=== PATIENT | male | born 1950 | race Caucasian/White ===

== ENCOUNTER 2016-10-10 21:57 | Inpatient (IN) | payer MEDICAID, MEDICARE ==
[~2016-10-10] VITALS: Ht 167.6 cm; Wt 75.0 kg
[~2016-10-10 21:57] MED LIST: FURO1TAB93 PO; FURO20 PO; LISI-357 PO; LISI-589 PO; PRED20 PO; VENTAER INH
[2016-10-10 21:59] VITALS: O2SAT 98
[2016-10-10 22:19] LABS: I-STAT POTASSIUM 3.3 MMOL/L (3.5-4.9)
[2016-10-10] MEDS: SODIUM CHLOR 0.9% 1000 ML INJ 1,000 ML IV SCH (22:20)
[2016-10-10 22:21] LABS: AUTOMATED NEUTROPHIL # 7.1 TH/MM3 (1.8-7.7); BASOPHIL # 0.1 TH/MM3 (0-0.2); BASOPHIL % 0.8 % (0.0-2.0); EOSINOPHIL # 0.4 TH/MM3 (0-0.4); EOSINOPHIL % 3.8 % (0.0-4.0); HEMATOCRIT 40.2 % (39.0-51.0); HEMO FLAGS DIFF FINAL; LYMPH % 22.6 % (9.0-44.0); LYMPHOCYTE # 2.5 TH/MM3 (1.0-4.8); MEAN CELL VOLUME 102.4 FL (80.0-100.0); MEAN CORPUSCULAR HEMOGLOBIN 35.8 PG (27.0-34.0); MONO % 8.9 % (0.0-8.0); NEUT % 63.9 % (16.0-70.0); PLATELET COUNT 227 TH/MM3 (150-450); RED BLOOD COUNT 3.92 MIL/MM3 (4.50-5.90); RED CELL DISTRIBUTION WIDTH 14.1 % (11.6-17.2); WHITE BLOOD COUNT 11.1 TH/MM3 (4.0-11.0)
--- NOTE | 2016-10-10 22:22 | RADRPT ---
EXAM DATE/TIME: 10/10/2016 21:49 CORRECTION Corrected on: October 10, 2016; [facility] COMPARISON: No previous studies available for comparison. INDICATIONS : Trauma alert. Pain from fall. MEDICAL HISTORY : None. SURGICAL HISTORY : None. ENCOUNTER: Initial ACUITY: 1 day PAIN SCORE: Non-responsive. LOCATION: Bilateral chest FINDINGS: Frontal chest is performed on a backboard. The lungs are symmetrically aerated and grossly clear. No definite hemothorax or pneumothorax. The cardiomediastinal contours are satisfactory for technique an d projection. Visualized skeletal structures appear grossly intact. CONCLUSION: Satisfactory trauma chest appearance. Willian Tavares MD on October 10, 2016 at 22:53 Board Certified Radiologist. This report was verified electronically.
--- NOTE | 2016-10-10 22:22 | RADRPT ---
EXAM DATE/TIME: 10/10/2016 22:08 [facility] COMPARISON: No previous studies available for comparison. INDICATIONS : Trauma; fall. RADIATION DOSE: 59.60 CTDIvol (mGy) MEDICAL HISTORY : Non-responsive. SURGICAL HISTORY : Non-responsive. ENCOUNTER: Initial ACUITY: 1 day PAIN SCALE: Non-responsive LOCATION: cranial TECHNIQUE: Multiple contiguous axial images were obtained of the head. Using automated exposure control and adj ustment of the mA and/or kV according to patient size, radiation dose was kept as low as reasonably a chievable to obtain optimal diagnostic quality images. FINDINGS: Frontotemporal cortex. No evidence of drainable hemorrhagic collection. No evidence of significant ma ss effect or underlying edema. There are patchy areas of diminished white matter attenuation which ar e likely microvascular ischemic in etiology and there are old bilateral basal ganglia lacunar infarct s noted. There is an old fracture involving the left zygomatic arch. There is some fluid in the sphenoid sinus . No evidence of skull fracture. CONCLUSION: Mild left frontotemporal contusion. Willian Tavares MD on October 10, 2016 at 22:17 Board Certified Radiologist. This report was verified electronically.
--- NOTE | 2016-10-10 22:27 | RADRPT ---
EXAM DATE/TIME: 10/10/2016 22:08 [facility] COMPARISON: No previous studies available for comparison. INDICATIONS : Trauma; fall. RADIATION DOSE: 22.69 CTDIvol (mGy) MEDICAL HISTORY : Non-responsive. SURGICAL HISTORY : Non-responsive. ENCOUNTER: Initial ACUITY: 1 day PAIN SCALE: Non-responsive LOCATION: neck TECHNIQUE: Volumetric scanning of the cervical spine was performed. Multiplanar reconstructions in the sagittal, coronal and oblique axial planes were performed. Using automated exposure control and adjustment o f the mA and/or kV according to patient size, radiation dose was kept as low as reasonably achievable to obtain optimal diagnostic quality images. FINDINGS: There is slight retrolisthesis of C5 relative to C6 which appears degenerative. Alignment is otherwis e satisfactory. There is no evidence of fracture. No bony canal stenosis is identified. There is fair ly severe degenerative change with disc space narrowing most significantly at C5-6 and C6-7. Endplate and uncovertebral osteophytes are present at multiple levels. Severe bilateral posterior facet arthr opathy is present. There is no evidence of paraspinal hematoma. CONCLUSION: No acute bony injury in the cervical spine Willian Tavares MD on October 10, 2016 at 22:22 Board Certified Radiologist. This report was verified electronically.
[2016-10-10] MEDS ORDERED: ONDANSETRON HCL 4 MG/2 ML VIAL IV PRN (22:30)
[2016-10-10] MEDS ORDERED: SODIUM CHLORIDE 0.9% FLUSH 5 ML FLUSH IVF PRN (22:30)
[2016-10-10] MEDS ORDERED: NALOXONE HCL 0.4 MG/ML AMP IV PRN (22:30)
[2016-10-10] MEDS ORDERED: Post-op Orders (for Pharmacy) MISC XX ONE (22:30)
--- NOTE | 2016-10-10 22:33 | MH ---
cc: JAK HAMM MD DATE OF ENCOUNTER 10/10/2016 HISTORY OF PRESENT ILLNESS This 64-year-old male was apparently in a bar, fell backward and is brought as a priority 1 trauma alert because of the LOC and on the scene Rebeca coma scale was 10. The patient is obviously inebriated alcohol intoxicated. The patient brought on a spinal board with C-collar in place. PAST MEDICAL/SURGICAL HISTORY Unknown. ALLERGIES Unknown MEDICATIONS Unknown SOCIAL HISTORY The patient is clearly drunk. PHYSICAL EXAMINATION GENERAL: A 64-year-old male appearing older than his age. HEENT: Normocephalic, no trauma to the head. Pupils equally reactive. Extraocular muscles intact. Ears - There is some red blood in the right ear but no CSF leak nothing in the left, no Basilio's sign. NECK: Bilateral carotid pulses. No bruits. C collar is in position. CHEST: Bilateral breath sounds decreased over both lung cruz consistent with moderate degree of COPD. HEART: Regular rhythm. ABDOMEN: Very rotund with active bowel sounds. No rebound or guarding. No masses. I would assume that patient probably has some degree of ascites considering the percutory dullness laterally and hyperresonance superiorly from the bowel loops floating on the surface of the fluid. Groins are normal. EXTREMITIES: Grossly within normal limits, appear to be atrophic, musculature good femoral popliteal, dorsalis pedis posterior pulses. BACK: The patient is log rolled. Back is normal NEUROLOGIC: Right now, Worthington coma scale is now 12. The patient is awake, but I do not believe oriented, opens eyes and responds to stimuli, is appropriate although he is heavily inebriated. IMPRESSION A patient who fell backward, had some decrease of level of consciousness according to the people there and now being worked up, taken to the CT scan for further workup. CT scan reveals small left frontotemporal contusion with bleeding Patient will be admitted to ICU and monitored IV fluids initiated in the emergency room will continue throughout the stay Patient started on Keppra as a seizure preventing standard measure C-collar removed I spoke to neurosurgeon and he will consult on the patient Critical care time 40 minutes. Jak VALDEZ/ /10:11 PM /10:25 PM [facility]ALIA
[2016-10-10 22:35] LABS: APTT (PATIENT) 25.4 SEC (24.3-30.1); PROTHROMBIN TIME - PATIENT 10.6 SEC (9.8-11.6)
--- NOTE | 2016-10-10 22:57 | RADRPT ---
EXAM DATE/TIME: 10/10/2016 21:49 [facility] COMPARISON: No previous studies available for comparison. INDICATIONS : Trauma alert. Pain from fall. MEDICAL HISTORY : None. SURGICAL HISTORY : None. ENCOUNTER: Initial ACUITY: 1 day PAIN SCORE: Non-responsive. LOCATION: Bilateral pelvis FINDINGS: Frontal pelvis is performed with patient on a backboard. The hips are grossly symmetric and normal wi thout evidence of fracture or dislocation. No displaced pelvic fracture is noted. There are dense ath erosclerotic vascular calcifications identified. CONCLUSION: Satisfactory trauma pelvis appearance. Willian Tavares MD on October 10, 2016 at 22:54 Board Certified Radiologist. This report was verified electronically.
[2016-10-10] MEDS: hydrALAZINE HCL 20 MG/ML VIAL IV PUSH SCH (23:00)
[2016-10-10] MEDS ORDERED: METOPROLOL TARTRATE 5 MG/5 ML VIAL IV PUSH SCH (23:00)
--- NOTE | 2016-10-10 23:12 | PD ---
HPI Chief Complaint: Fall Time Seen by Provider: 22:05 Travel History International Travel<30 days: No (unknown) Contact w/Intl Traveler<30days: No (unknown) History of Present Illness HPI Elderly male with unknown PMH brought in as trauma alert s/p fall from standing outside the bar. +LOC. Pt had blood from right ear. Pt is intoxicated in the ED but following commands and hypertensive. GCS 14. No other signs of trauma seen. Moving all extremities. PFSH Past Medical History Medical History: Unable to Obtain Past Surgical History Surgical History: Unable to Obtain Social History Tobacco Use: No (unknown) Allergies-Medications (Allergen,Severity, Reaction): Coded Allergies: UNOBTAINABLE (Unverified , 10/10/16) Review of Systems ROS Limitations: Intoxication Physical Exam Narrative GENERAL: Elderly male intoxicated. SKIN: Warm and dry. HEAD: No hematoma or laceration seen. EYES: Pupils 3mm and reactive bilaterally. ENT: +Blood from right ear. NECK: In cervical spine collar. CARDIOVASCULAR: Regular rate and rhythm. No murmur appreciated. RESPIRATORY: No accessory muscle use. Clear to auscultation. Breath sounds equal bilaterally. GASTROINTESTINAL: Abdomen soft, non-tender, nondistended. No rebound tenderness or guarding. BACK: No midline ttp. MUSCULOSKELETAL: No obvious deformities. No clubbing. No cyanosis. No edema. NEUROLOGICAL: Intoxicated but moving all extremities. Limited neuro exam due to intoxication. Data Data Orders I-Stat Profile (10/10/16 22:05) I-Stat Creatinine (10/10/16 22:05) Complete Blood Count With Diff (10/10/16 22:05) Prothrombin Time / Inr (Pt) (10/10/16 22:05) Act Partial Throm Time (Ptt) (10/10/16 22:05) Type And Screen (10/10/16 22:05) Chest, Single Ap (10/10/16 22:05) Pelvis, Ap Only (Routine) (10/10/16 22:05) Ct Brain W/O Iv Contrast(Rout) (10/10/16 22:05) Ct Cerv Spine W/O Contrast (10/10/16 22:05) Iv Access Insert/Monitor (10/10/16 22:05) Ecg Monitoring (10/10/16 22:05) Oximetry (10/10/16 22:05) Oxygen Administration (10/10/16 22:05) Admit To Inpatient (10/10/16 ) Code Status (10/10/16 22:20) Vital Signs (Adult) Q4H (10/10/16 22:20) Activity Bed Rest (10/10/16 22:20) Intake + Output CARSON.QSHIFT (10/10/16 22:20) Diet Clear Liquid (10/11/16 Breakfast) Sodium Chlor 0.9% 1000 Ml Inj (Ns 1000 M (10/10/16 22:20) Sodium Chloride 0.9% Flush (Ns Flush) (10/10/16 22:30) Sodium Chloride 0.9% Flush (Ns Flush) (10/11/16 09:00) Ondansetron Inj (Zofran Inj) (10/10/16 22:30) Pantoprazole Inj (Protonix Inj) (10/10/16 23:00) Resp Incentive Spirometry (10/10/16 ) Post-Op Orders (For Pharmacy) (Post-Op O (10/10/16 22:30) Acetaminophen (Tylenol) (10/10/16 22:30) Naloxone Inj (Narcan Inj) (10/10/16 22:30) Scd Bilateral/Knee High CARSON.QSHIFT (10/10/16 22:20) Pharmacologic Contraindication (10/10/16 22:20) Inpatient Certification (10/10/16 ) Prednisone (Deltasone) (10/11/16 09:00) Metoprolol Tartrate Inj (Lopressor Inj) (10/10/16 23:00) Lisinopril (Prinivil) (10/11/16 09:00) Albuterol-Ipratropium Neb (Duoneb Neb) (10/11/16 08:00) Consult Neurosurgery (10/10/16 ) Remove Cervical Collar (10/10/16 22:38) Urinary Catheter Insert/Apply (10/10/16 22:39) Admit Order (Ed Use Only) (10/10/16 23:06) Labs Laboratory Tests Test 10/10/16 21:55 White Blood Count 11.1 TH/MM3 Red Blood Count 3.92 MIL/MM3 Hemoglobin 14.0 GM/DL Bedside Hemoglobin 14.6 G/DL Hematocrit 40.2 % Bedside Hematocrit 43.0 % Mean Corpuscular Volume 102.4 FL Mean Corpuscular Hemoglobin 35.8 PG Mean Corpuscular Hemoglobin 35.0 % Concent Red Cell Distribution Width 14.1 % Platelet Count 227 TH/MM3 Mean Platelet Volume 7.7 FL Neutrophils (%) (Auto) 63.9 % Lymphocytes (%) (Auto) 22.6 % Monocytes (%) (Auto) 8.9 % Eosinophils (%) (Auto) 3.8 % Basophils (%) (Auto) 0.8 % Neutrophils # (Auto) 7.1 TH/MM3 Lymphocytes # (Auto) 2.5 TH/MM3 Monocytes # (Auto) 1.0 TH/MM3 Eosinophils # (Auto) 0.4 TH/MM3 Basophils # (Auto) 0.1 TH/MM3 CBC Comment DIFF FINAL Differential Comment Prothrombin Time 10.6 SEC Prothromb Time International 1.0 RATIO Ratio Activated Partial 25.4 SEC Thromboplast Time Bedside Sodium 135 MMOL/L Bedside Potassium 3.3 MMOL/L Bedside Chloride 94 MMOL/L Bedside Blood Urea Nitrogen 4 MG/DL Bedside Creatinine 1.1 MG/DL Bedside Glucose 114 MG/DL Blood Type O NEGATIVE Antibody Screen NEGATIVE B-Type Natriuretic Peptide 155 PG/ML Ethyl Alcohol Level 239 MG/DL MDM Medical Decision Making Medical Screen Exam Complete: Yes Emergency Medical Condition: Yes Differential Diagnosis ICH vs. skull fracture vs. contusion vs. intoxication Narrative Course Elderly male intoxicated with fall and +LOC. CXR and xray pelvis in trauma bay negative. Pt is hypertensive in the trauma bay. CT brain showed mild left frontotemporal contusion. CT cspine showed no acute bony injury. Pt admitted to trauma in ICU for parenchyma contusion and frequent neurochecks. Critical Care Narrative Aggregate critical care time was 20 minutes. Time to perform other separately billable procedures was not included in the critical care time. My time did not include minutes spent treating any other patients simultaneously or on activities that did not directly contribute to the patient's treatment. The services I provided to this patient were to treat and/or prevent clinically significant deterioration that could result in: cardiovascular collapse or . I provided critical care services requiring my management, as noted below: Chart data review, documentation time, medication orders and management, vital sign assessments/reviewing monitor data, ordering and reviewing lab tests, ordering and interpreting/reviewing x-rays and diagnostic studies, care of the patient and discussion of the patient with the admitting physicians. Diagnosis Primary Impression: Head trauma Qualified Code: S09.90XA - Head trauma, initial encounter Admitting Information Admitting Physician Requests: Dipti Baker DO Oct 10, 2016 23:12
[2016-10-10] MEDS ORDERED: RESP: ALBUTEROL 2.5 MG/IPRATROPIUM 0.5 MG NEB (PRN) NEB (23:15)
[2016-10-10] MEDS: PANTOPRAZOLE SODIUM 40 MG VIAL IV SCH (23:47)
--- NOTE | 2016-10-10 23:47 | PD.CONS ---
HPI Service Critical Care Medicine Consult Requested By Trauma Surgery Reason for Consult Hypertensive urgency Primary Care Physician No Primary Care Physician History of Present Illness 65 y/o man apparently fell over backwards in or outside of local bar. LOC at scene. Conversant on arrival from records. Intoxivated with strong smell of alcohol. Review of Systems ROS No chest pain or SOB. Denies COPD or wheezing (but clear has COPD by exam). Denies inhaler use. Past Family Social History Allergies: Coded Allergies: UNOBTAINABLE (Unverified , 10/10/16) Past Medical History Unknown. Physical Exam Vital Signs Vital Signs Date Time Temp Pulse Resp B/P Pulse Ox O2 Delivery O2 Flow Rate FiO2 10/10/16 23:13 97 Nasal Cannula 2.00 Physical Exam Gen: Intoxicated man with mumbled speech. Head: Minor cut right external ear. Neck: Supple. No tenderness to palpation. No step-off. Airway patent with mild snoring. Lungs: Diffuse light wheezes. Good arnie air movement. Heart: NL S1S2 70s. No m,r. No JVD. RRR. Abdomen: Large, soft. Moderately distended. BS present. No guarding. Extremities: Warm, well perfused. Neuro: Speech slurred, mumbles. Conversant. Intoxicated. Moves 4 limbs spontaneously with purpose and to command. Pupils 2 mm, reactive. Laboratory Laboratory Tests Test 10/10/16 21:55 White Blood Count 11.1 Red Blood Count 3.92 Hemoglobin 14.0 Bedside Hemoglobin 14.6 Hematocrit 40.2 Bedside Hematocrit 43.0 Mean Corpuscular Volume 102.4 Mean Corpuscular Hemoglobin 35.8 Mean Corpuscular Hemoglobin 35.0 Concent Red Cell Distribution Width 14.1 Platelet Count 227 Mean Platelet Volume 7.7 Neutrophils (%) (Auto) 63.9 Lymphocytes (%) (Auto) 22.6 Monocytes (%) (Auto) 8.9 Eosinophils (%) (Auto) 3.8 Basophils (%) (Auto) 0.8 Neutrophils # (Auto) 7.1 Lymphocytes # (Auto) 2.5 Monocytes # (Auto) 1.0 Eosinophils # (Auto) 0.4 Basophils # (Auto) 0.1 CBC Comment DIFF FINAL Differential Comment Prothrombin Time 10.6 Prothromb Time International 1.0 Ratio Activated Partial 25.4 Thromboplast Time Bedside Sodium 135 Bedside Potassium 3.3 Bedside Chloride 94 Bedside Blood Urea Nitrogen 4 Bedside Creatinine 1.1 Bedside Glucose 114 Blood Type O NEGATIVE Antibody Screen NEGATIVE Result Diagram: 10/10/162154 Imaging Head CT: Left frontotemporal contusion, 2 cm. CXR: clear. Cardiomegaly. Assessment and Plan Problem List: (1) Closed head injury with brief loss of consciousness ICD Code: S06.9X9A Status: Acute (2) Encephalopathy, toxic ICD Code: G92 Status: Acute (3) Cerebral cortex contusion ICD Code: S06.2X9A Status: Acute (4) Hypertensive urgency ICD Code: I16.0 Status: Acute Assessment and Plan Plan: CV: Hydralazine, labetalol iv for BP control. EKG due to strain pattern, inverted Ts. RESP: Bronchodilators. BNP to sort out bronchospasm from heart failure. NEURO: Hold sedation. Ativan for withdrawals if otherwise intact. CT head otherwise. ETOH level to document cause of slurred speech. Mag 2 gms. Checl Phos if seizures develop. Repeat Head CT after 12-24 hours. GI: NPO. : Follow Urine output, maintain > 30/hr. ID: Culture for fevers. HEME: CBC for fevers. ENDO: Serial glucose. SSI prn. PX: Hold chemical DVT. SCDs. Protonix. Overall impression: Closed head injury with parenchymal contusion. Alcohol intoxication presumed. At risk for seizures from two causes - follow closely, treat early if tremulous. No neurosurgical intervention required tonight; may see electively in a.m. Will receive education regarding the medical risks of alcohol. Code Status Full Discussed Condition With Dr. Hernandez at bedside. Problem Qualifiers (1) Cerebral cortex contusion: Donovan Davis MD Oct 10, 2016 23:47
[2016-10-10] MEDS: MAGNESIUM SULFATE 1 GM PREMIX 100 ML IV SCH (23:48)
[2016-10-11] VITALS (14 sets, daily range): BP systolic 137–170; BP diastolic 74–91; PULSE 80–117; RESP 22–30; TEMP 97.7–100; O2SAT 93–100
[2016-10-11] MEDS: MAGNESIUM SULFATE 1 GM PREMIX 100 ML IV SCH (01:03)
[2016-10-11] MEDS: LORazepam 2 MG/ML VIAL IV PUSH PRN ×4 (01:09→21:00)
[2016-10-11] MEDS ORDERED: MAGNESIUM OXIDE 400 MG TAB PO PRN (01:15)
[2016-10-11] MEDS ORDERED: POTASSIUM PHOSPHATE INJ 30 MMOL in SODIUM CHLOR 0.9% 250 ML INJ 250 ML IV PRN (01:15)
[2016-10-11] MEDS ORDERED: POTASSIUM CHLOR 20 MEQ PREMIX 100 ML IV PRN (01:15)
[2016-10-11] MEDS ORDERED: MAGNESIUM SULFATE INJ 2 GM in SODIUM CHLORIDE 0.9% INJ 96 ML IV PRN (01:15)
[2016-10-11] MEDS ORDERED: POTASSIUM CHLOR 40 MEQ PREMIX 100 ML IV PRN ×2 (01:15)
[2016-10-11] MEDS ORDERED: MAGNESIUM SULFATE INJ 4 GM in SODIUM CHLORIDE 0.9% INJ 92 ML IV PRN (01:15)
[2016-10-11] MEDS ORDERED: POTASSIUM PHOSPHATE MONOBASIC 500 MG TAB PO PRN (01:15)
[2016-10-11] MEDS ORDERED: POTASSIUM CL 40 MEQ/30 ML LIQ UDC PO/TUBE PRN (01:15)
[2016-10-11] MEDS ORDERED: POTASSIUM PHOSPHATE MONOBASIC 500 MG TAB PO/TUBE PRN (01:15)
[2016-10-11] MEDS: POTASSIUM CHLOR 20 MEQ PREMIX 100 ML IV PRN ×2 (02:15→04:39)
[2016-10-11] MEDS: LABETALOL HCL 100 MG/20 ML VIAL IV PUSH PRN ×2 (02:34→11:43)
[2016-10-11] MEDS: hydrALAZINE HCL 20 MG/ML VIAL IV PUSH SCH ×4 (04:39→21:50)
[2016-10-11] MEDS: SODIUM CHLOR 0.9% 1000 ML INJ 1,000 ML IV SCH ×2 (08:20→22:00)
[2016-10-11] MEDS: RESP: ALBUTEROL 2.5 MG/IPRATROPIUM 0.5 MG NEB (SCH) NEB ×3 (08:35→20:00)
[2016-10-11] MEDS: levETIRAcetam 500 MG TAB PO SCH ×2 (09:04→20:51)
[2016-10-11] MEDS: LISINOPRIL 20 MG TAB PO SCH ×2 (09:04→20:52)
[2016-10-11] MEDS: predniSONE 10 MG TAB PO SCH ×2 (09:05→20:52)
[2016-10-11] MEDS: SODIUM CHLORIDE 0.9% FLUSH 5 ML FLUSH IVF SCH ×2 (09:06→20:52)
--- NOTE | 2016-10-11 09:24 | HHI.CCPN ---
Subjective Brief History Patient was brought in as a trauma alert after sustaining a fall outside a bar and hitting his head. + LOC, + EtOH. GCS 10 on arrival. 24 Hour Review/Hospital Course 10/11/2016 No acute events overnight. Patient has remained lethargic. Objective Vital Signs Date Time Temp Pulse Resp B/P Pulse Ox O2 Delivery O2 Flow Rate FiO2 10/11/16 06:00 98 10/11/16 04:00 98.3 22 154/83 98 10/10/16 23:13 Nasal Cannula 2.00 Result Diagram: 10/10/162154 Imaging Last 24 hours Impressions Pelvis X-Ray 10/10/162204 Signed Impressions: Service Date/Time: Monday, October 10, 2016 21:49 - CONCLUSION: Satisfactory trauma pelvis appearance. Willian Tavares MD Head CT 10/10/162204 Signed Impressions: Service Date/Time: Monday, October 10, 2016 22:08 - CONCLUSION: Mild left frontotemporal contusion. Willian Tavares MD Chest X-Ray 10/10/162204 Signed Impressions: Service Date/Time: Monday, October 10, 2016 21:49 - CONCLUSION: Satisfactory trauma chest appearance. 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 SKIN: Warm and dry. HEAD: Normocephalic. ENT: No nasal bleeding or discharge. Mucous membranes pink and moist. NECK: Trachea midline. No JVD. CARDIOVASCULAR: Regular rate and rhythm. RESPIRATORY: No accessory muscle use. Lungs clear to auscultation. Breath sounds equal bilaterally. GASTROINTESTINAL: Abdomen soft, non-tender, nondistended. + BS. MUSCULOSKELETAL: Extremities without cyanosis, or edema. No obvious deformities. NEUROLOGICAL: Lethargic, arouses to noxious stimuli. Garbled speech. Assessment and Plan Plan ALATNA: Patient had a fall standing outside of a bar. +LOC. + ETOH, GCS 14 on arrival ASSESSMENT AND PLAN: NEUROLOGICAL: EtOH level 239 on admission. Monitor for EtOH withdrawal. Ativan when necessary. Neuro checks q 2 hours. Monitor for seizures. Placed on prophylactic Keppra. HOB elevated 30 degrees Neurosurgery consulted. CARDIOVASCULAR: HR = 80's-110. BP hypertensive. PO Lisinopril. Labetalol IV, Hydralazine IV ordered PRN. IVF: NS @ 100mL/H. MVI bag. Continually monitor for hemodynamic instability (shock and hypotension) Follow [facility] Electrolyte protocol RESPIRATORY: O2 Sats Monitor for hypoxemia Pulmonary toilet L&S as needed. Bronchodilators - Duonebs. GASTROINTESTINAL: Diet clear liquids when more alert. Bowel regimen Colace, MOM. No BM yet. RENAL / URINARY: I&O -359 BUN / creat 5/0.82 Voids to urinal. ENDOCRINE: BGM WNL HEMATOLOGY: H&H 13.4/38.3 PLT 220 Continue to monitor for signs and symptoms of bleeding Transfuse for < 7.0 INFECTIOUS DISEASE: Follow CBC WBC - 17.4 Afebrile Administer antipyretics for temp as needed. Maintain vigorous aseptic care of IVs to avoid blood stream infection. Lines: PIV's. PROPHYLAXIS: GI Protonix IV. DVT - SCD's. SKIN: Warm / Dry ACTIVITY: Status - BR PT and OT evaluating. CASE MANAGEMENT: Consulted for assist with DC planning. Placement - disposition. Discussed with RN at bedside. Pt remains critically ill in the ICU. Trauma surgery will round and evaluate patient and treatment plan on a daily basis. Zaire Jessica Oct 11, 2016 09:24
--- NOTE | 2016-10-11 09:56 | EKG ---
Date Performed: 10/11/2016 Time Performed: 00:08:40 PTAGE: 65 years EKG: Sinus rhythm . Normal ECG NO PREVIOUS TRACING DOCTOR: Jam Snow Interpretating Date/Time 10/11/2016 09:53:59
--- NOTE | 2016-10-11 10:03 | PD.CONS ---
History of Present Illness Service Neurosurgery Consult Requested By Trauma Service Reason for Consult TBI Primary Care Physician No Primary Care Physician Diagnoses: (1) Head trauma History of Present Illness 65-year-old male presented to the emergency room as a trauma alert after falling at a bar with positive loss of consciousness. No seizure activity reported. GCS 10 on initial evaluation. EtOH 239 in the emergency room. Initial CT scan with left frontal hemorrhage Review of Systems Other Unable to obtain review of systems from patient. Past Family Social History Allergies: Coded Allergies: UNOBTAINABLE (Unverified , 10/10/16) Past Medical History Unable to obtain past medical history from patient. Hypertensive on admission Past Surgical History Unable to obtain Reported Medications Unable to obtain Family History Unable to obtain Social History Unable to obtain due to decreased mental status. Physical Exam Vital Signs Vital Signs Date Time Temp Pulse Resp B/P Pulse Ox O2 Delivery O2 Flow Rate FiO2 10/11/16 06:00 98 10/11/16 04:00 98.3 80 22 154/83 98 10/11/16 04:00 80 10/11/16 02:00 94 10/11/16 00:00 97.7 93 23 146/77 100 10/11/16 00:00 86 10/10/16 23:13 97 Nasal Cannula 2.00 10/10/16 21:59 98 4.00 Physical Exam GENERAL: Rather disheveled male, poor hygiene. SKIN: No rashes, ecchymoses or lesions. Cool and dry. HEAD: Atraumatic. Normocephalic. EYES: Sclerae are clear and nonicteric. No periorbital edema or ecchymosis ENT: Laceration right ear. Blood right external auditory canal. No CSF otorrhea or rhinorrhea. NECK: Trachea midline. No JVD or lymphadenopathy. Supple, nontender, no meningeal signs. CARDIOVASCULAR: Regular rate and rhythm without murmurs, gallops, or rubs. RESPIRATORY: Clear to auscultation. Breath sounds equal bilaterally. No wheezes , rales, or rhonchi. GASTROINTESTINAL: Abdomen soft, non-tender, nondistended. No hepato-splenomegaly , or palpable masses. No guarding. MUSCULOSKELETAL: No long bone or joint deformity. No significant extremity edema. Posterior tibial 2+ bilateral NEUROLOGICAL: Very lethargic to obtunded. With repetitive voice and sternal rub, moderate eye -opening but does not focus for follow with eyes. Pupils are 2-3 mm nonreactive During the examination, patient has witnessed seizure with eyes rolling into a superior gaze and primarily left eyelid and myofascial twitching. Initially during exam, he attempts to verbalize in response to questions with significant dysarthria, unintelligible speech. Initially mild grasp left hand to command. Moves all extremities with moderate strength spontaneous Theron is absent bilateral No ankle clonus Laboratory Laboratory Tests Test 10/10/16 21:55 White Blood Count 11.1 Red Blood Count 3.92 Hemoglobin 14.0 Bedside Hemoglobin 14.6 Hematocrit 40.2 Bedside Hematocrit 43.0 Mean Corpuscular Volume 102.4 Mean Corpuscular Hemoglobin 35.8 Mean Corpuscular Hemoglobin 35.0 Concent Red Cell Distribution Width 14.1 Platelet Count 227 Mean Platelet Volume 7.7 Neutrophils (%) (Auto) 63.9 Lymphocytes (%) (Auto) 22.6 Monocytes (%) (Auto) 8.9 Eosinophils (%) (Auto) 3.8 Basophils (%) (Auto) 0.8 Neutrophils # (Auto) 7.1 Lymphocytes # (Auto) 2.5 Monocytes # (Auto) 1.0 Eosinophils # (Auto) 0.4 Basophils # (Auto) 0.1 CBC Comment DIFF FINAL Differential Comment Prothrombin Time 10.6 Prothromb Time International 1.0 Ratio Activated Partial 25.4 Thromboplast Time Bedside Sodium 135 Bedside Potassium 3.3 Bedside Chloride 94 Bedside Blood Urea Nitrogen 4 Bedside Creatinine 1.1 Bedside Glucose 114 Blood Type O NEGATIVE Antibody Screen NEGATIVE B-Type Natriuretic Peptide 155 Ethyl Alcohol Level 239 Result Diagram: 10/10/162154 Imaging CT Head and C-spine images reviewed. Agree with findings as noted below: Pelvis X-Ray 10/10/162204 Signed Impressions: Service Date/Time: Monday, October 10, 2016 21:49 - CONCLUSION: Satisfactory trauma pelvis appearance. Willian Tavares MD Head CT 10/10/162204 Signed Impressions: Service Date/Time: Monday, October 10, 2016 22:08 - CONCLUSION: Mild left frontotemporal contusion. Willian Tavares MD Chest X-Ray 10/10/162204 Signed Impressions: Service Date/Time: Monday, October 10, 2016 21:49 - CONCLUSION: Satisfactory trauma chest appearance. 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 neuro checks F/U CT head 10/12/16 Dilantin load - level in AM. Continue Keppra Ulcer prophylaxis Non- chemical DVT prophylaxis Problem Qualifiers (1) Head trauma: Qualified Code: S09.90XA - Head trauma, initial encounter Sourav Jerry MD Oct 11, 2016 10:03
[2016-10-11 10:19] LABS: AUTOMATED NEUTROPHIL # 15.4 TH/MM3 (1.8-7.7); BASOPHIL # 0.1 TH/MM3 (0-0.2); BASOPHIL % 0.3 % (0.0-2.0); EOSINOPHIL % 0.1 % (0.0-4.0); HEMATOCRIT 38.3 % (39.0-51.0); HEMO FLAGS DIFF FINAL; LYMPHOCYTE # 0.9 TH/MM3 (1.0-4.8); MEAN CELL VOLUME 102.4 FL (80.0-100.0); MEAN CORPUSCULAR HEMOGLOBIN 35.8 PG (27.0-34.0); MONO % 6.1 % (0.0-8.0); NEUT % 88.5 % (16.0-70.0); PLATELET COUNT 220 TH/MM3 (150-450); RED BLOOD COUNT 3.74 MIL/MM3 (4.50-5.90); RED CELL DISTRIBUTION WIDTH 14.4 % (11.6-17.2); WHITE BLOOD COUNT 17.4 TH/MM3 (4.0-11.0)
[2016-10-11 10:28] LABS: ANION GAP 11 MEQ/L (5-15); AST (GOT) 19 U/L (15-37); BICARBONATE 24.7 MEQ/L (21.0-32.0); BLOOD UREA NITROGEN 5 MG/DL (7-18); CHLORIDE 96 MEQ/L (98-107); GLOMERULAR FILTRATION RATE 94 ML/MIN (>89); MAGNESIUM 1.7 MG/DL (1.5-2.5); POTASSIUM 3.5 MEQ/L (3.5-5.1); SODIUM (NA) 132 MEQ/L (136-145)
[2016-10-11 10:31] LABS: ALKALINE PHOSPHATASE 124 U/L (45-117); ALT (GPT) 16 U/L (12-78); TOTAL BILIRUBIN ADULT 0.5 MG/DL (0.2-1.0)
[2016-10-11] MEDS ORDERED: FOSPHENYTOIN SODIUM 500 MG PE/10 ML VIAL IM ONE (12:00)
[2016-10-11] MEDS ORDERED: FOSPHENYTOIN INJ 1,000 MGPE in SODIUM CHLORIDE 0.9% INJ 50 ML IV ONE (14:00)
[2016-10-11] MEDS ORDERED: MULTIVITAMIN INJ 10 ML, THIAMINE INJ 100 MG, FOLIC ACID INJ 1 MG in DEXT 5%-NACL 0.9% 5... IV ONE (14:00)
[2016-10-11] MEDS: PHENYTOIN INJ 100 MG/2 ML VIAL IV SCH (20:52)
[2016-10-11] MEDS ORDERED: MIDAZOLAM HCL 5 MG/ML VIAL (1 ML) ONE (21:03)
--- NOTE | 2016-10-11 21:31 | PD.PROCEDR ---
Procedure Note Procedure DX: Respiratory Failure (J96.01) OP: Orotracheal Intubation (66004) Procedure: Bag mask ventilation. Versed 10 mg and rocuronium 100 mg iv. Intubated orally with 8.0 tube. Position confirmed with CO2 detection, breath sounds, sats 100%. CXR ordered, will review. Donovan Davis MD Oct 11, 2016 21:31
--- NOTE | 2016-10-11 21:43 | HHI.CCPN ---
Subjective Remarks/Hospital Course 65 y/o man apparently fell over backwards in or outside of local bar. LOC at scene. Conversant on arrival from records. Intoxicated with strong smell of alcohol. 10/11: He has developed hypoxemic respiratory failure with inability to clear secretions from productive cough. Respiratory rate 45 and markedly labored. Will require intubation and mechanical ventilation. Objective Vital Signs Date Time Temp Pulse Resp B/P Pulse Ox O2 Delivery O2 Flow Rate FiO2 10/11/16 18:00 117 10/11/16 16:00 100.0 29 137/91 95 10/11/16 13:19 Nasal Cannula 2.00 Result Diagram: 10/11/16 0920 10/11/[address]: Left frontotemporal contusion, 2 cm. CXR: clear. Cardiomegaly. Objective Remarks Gen: Agitated, flushed. Head: Minor cut right external ear. Dry, clean. Neck: Supple. Obstructive breath sounds and large amount of pulmonary secretions. Lungs: Diffuse rhonchi and wheezes. Labored. Heart: NL S1S2 70s. No m,r. No JVD. RRR. Tachycardia. Abdomen: Large, soft. Moderately distended. BS present. No guarding. Extremities: Warm, well perfused. Flushed. Neuro: Garbled speech without change from admission. Moves 4 limbs spontaneously and aggressively. Severely agitated. EFREN. A/P Problem List: (1) Closed head injury with brief loss of consciousness ICD Code: S06.9X9A Status: Acute (2) Encephalopathy, toxic ICD Code: G92 Status: Acute (3) Cerebral cortex contusion ICD Code: S06.2X9A Status: Acute (4) Hypertensive urgency ICD Code: I16.0 Status: Acute Assessment and Plan Plan: CV: Hydralazine, labetalol iv for BP control. EKG due to strain pattern, inverted Ts RESP: Bronchodilators. BNP to sort out bronchospasm from heart failure. NEURO: Ativan for withdrawals, convert to propofol. CT head otherwise. ETOH level 239 - [address] Jerry following. GI: NPO. NG to LIS. : Follow Urine output, maintain > 30/hr. ID: Culture for fevers. Sputum C&S. HEME: CBC for fevers. ENDO: Serial glucose. SSI prn. PX: Hold chemical DVT due to head injury. SCDs. Protonix. Overall impression: Closed head injury with parenchymal contusion. Alcohol intoxication. At risk for seizures from two causes. Deteriorating status tonight requiring mechanical ventilation and withdrawal control. Critical care 45 mins aside from procedures. Problem Qualifiers (1) Cerebral cortex contusion: Donovan Davis MD Oct 11, 2016 21:43
[2016-10-11] MEDS: PROPOFOL 1000 MG/100 ML INJ 100 ML IV SCH (21:49)
[2016-10-11] MEDS: PANTOPRAZOLE SODIUM 40 MG VIAL IV SCH (21:49)
[2016-10-11] MEDS: THIAMINE INJ 100 MG in SODIUM CHLORIDE 0.9% INJ 100 ML IV SCH (22:08)
--- NOTE | 2016-10-11 22:30 | RADRPT ---
EXAM DATE/TIME: 10/11/2016 21:38 [facility] COMPARISON: CHEST SINGLE AP, October 10, 2016, 21:49. INDICATIONS : ET tube placement. MEDICAL HISTORY : None. SURGICAL HISTORY : None. ENCOUNTER: Subsequent ACUITY: 2 days PAIN SCORE: Non-responsive. LOCATION: Bilateral chest FINDINGS: An endotracheal tube has its tip 2 cm above the miguel a. A nasogastric tube has its tip below the garrett phragm. Bilateral perihilar and bibasilar streakiness is noted consistent with atelectasis and/or in filtrates. Clinical correlation is recommended. The heart is stable. CONCLUSION: 1. Endotracheal tube has its tip in good position 2 cm above the miguel a. 2. Nasogastric tube has its tip below the diaphragm. 3. Perihilar and bibasilar streakiness consistent with atelectasis and/or infiltrates. Darrick Diamond MD on October 11, 2016 at 22:24 Board Certified Radiologist. This report was verified electronically.
[2016-10-11 23:19] LABS: MAGNESIUM 1.7 MG/DL (1.5-2.5)
[2016-10-12] VITALS (18 sets, daily range): BP systolic 97–196; BP diastolic 59–94; PULSE 74–96; RESP 14–27; TEMP 98.4–98.9; O2SAT 96–100
[2016-10-12] MEDS: LABETALOL HCL 100 MG/20 ML VIAL IV PUSH PRN (00:03)
[2016-10-12] MEDS: PROPOFOL 1000 MG/100 ML INJ 100 ML IV SCH ×3 (01:13→16:25)
[2016-10-12] MEDS: SODIUM CHLOR 0.9% 1000 ML INJ 1,000 ML IV SCH ×2 (03:49→14:05)
[2016-10-12 04:09] LABS: BLOOD GAS BASE EXCESS -1.7 mmol/L (-2-2); BLOOD GAS CARBOXYHEMOGLOBIN 1.1 % (0-4); BLOOD GAS HCO3 22 mmol/L (22-26); BLOOD GAS METHEMOGLOBIN 0.8 % (0-2); BLOOD GAS O2 HGB SATURATION 98 % (90-100); BLOOD GAS PCO2 33 mmHg (38-42); BLOOD GAS PO2 172 mmHg (61-120); BLOOD GAS TOTAL HGB 11.4 G/DL (12.0-16.0); CRITICAL VALUE NO
[2016-10-12 04:10] LABS: DRAW SITE RT BRACHIAL; FIO2 50 %; NUMBER OF ARTERIAL PUNCTURES 2; OXYGEN DEVICE VENTILATOR; TEMP CORR TO 98.6; VENT SETTINGS PRVC/AC
[2016-10-12 04:11] LABS: STAT NO
[2016-10-12] MEDS: hydrALAZINE HCL 20 MG/ML VIAL IV PUSH SCH ×4 (04:25→23:00)
[2016-10-12] MEDS ORDERED: ATROPINE SULFATE 1 MG/10 ML SYRINGE ONE (04:46)
[2016-10-12] MEDS ORDERED: EPINEPHrine HCL (1:10,000) 1 MG/10 ML SYRINGE ONE (04:46)
[2016-10-12] MEDS ORDERED: LIDOCAINE HCL 2% 100 MG/5 ML SYRINGE ONE (04:50)
[2016-10-12 05:19] LABS: AUTOMATED NEUTROPHIL # 12.3 TH/MM3 (1.8-7.7); BASOPHIL % 0.3 % (0.0-2.0); HEMATOCRIT 33.3 % (39.0-51.0); HEMO FLAGS DIFF FINAL; LYMPH % 4.5 % (9.0-44.0); LYMPHOCYTE # 0.6 TH/MM3 (1.0-4.8); MEAN CELL VOLUME 103.5 FL (80.0-100.0); MEAN CORPUSCULAR HEMOGLOBIN 35.8 PG (27.0-34.0); MEAN CORPUSCULAR HGB CONC 34.5 % (32.0-36.0); MONO % 7.9 % (0.0-8.0); NEUT % 87.3 % (16.0-70.0); PLATELET COUNT 190 TH/MM3 (150-450); RED BLOOD COUNT 3.22 MIL/MM3 (4.50-5.90); RED CELL DISTRIBUTION WIDTH 14.5 % (11.6-17.2); WHITE BLOOD COUNT 14.1 TH/MM3 (4.0-11.0)
[2016-10-12 05:42] LABS: BICARBONATE 21.5 MEQ/L (21.0-32.0); POTASSIUM 3.6 MEQ/L (3.5-5.1)
[2016-10-12] MEDS: PHENYTOIN INJ 100 MG/2 ML VIAL IV SCH ×3 (05:47→20:10)
[2016-10-12 06:00] LABS: CALCIUM-PROTEIN CORRECTED 8.1 MG/DL (8.5-10.1)
--- NOTE | 2016-10-12 06:59 | RADRPT ---
EXAM DATE/TIME: 10/12/2016 05:17 [facility] COMPARISON: CT BRAIN W/O CONTRAST, October 10, 2016, 22:08. INDICATIONS : Follow up bleed. RADIATION DOSE: 52.13 CTDIvol (mGy) MEDICAL HISTORY : None SURGICAL HISTORY : None. ENCOUNTER: Subsequent ACUITY: 2 days PAIN SCALE: Non-responsive LOCATION: cranial TECHNIQUE: Multiple contiguous axial images were obtained of the head. Using automated exposure control and adj ustment of the mA and/or kV according to patient size, radiation dose was kept as low as reasonably a chievable to obtain optimal diagnostic quality images. FINDINGS: CEREBRUM: The ventricles are normal for age with diffuse atrophic change. Low density small subdural hygromas a re now noted along both frontal and parietal convexities. The high density hemorrhage in the right fr ontal and parietal lobe is slightly more prominent along the convexities appears to represents subara chnoid hemorrhage with a an area of focal parenchymal contusion which is mildly more prominent on axi al image #18. No evidence of midline shift, mass lesion, or acute infarction. No extra-axial fluid co llections are seen. Old lacunar infarcts are present in the right basal ganglia. POSTERIOR FOSSA: The cerebellum and brainstem are intact. The 4th ventricle is midline. The cerebellopontine angle i s unremarkable. EXTRACRANIAL: The visualized portion of the orbits is intact. SKULL: The calvaria is intact. No evidence of skull fracture. CONCLUSION: 1. Mild interval increase in the left subarachnoid hemorrhage and focal small area of parenchymal con tusion. 2. Small low density subdural hygromas are now noted over the frontal and parietal convexities. Lucio Tyler MD on October 12, 2016 at 6:54 Board Certified Radiologist. This report was verified electronically.
[2016-10-12] MEDS: RESP: ALBUTEROL 2.5 MG/IPRATROPIUM 0.5 MG NEB (SCH) NEB ×3 (08:00→20:37)
[2016-10-12] MEDS: CHLORHEXIDINE 0.12% (ORAL KIT) 15 ML CUP MT SCH ×2 (08:00→20:11)
[2016-10-12] MEDS ORDERED: MAGNESIUM HYDROXIDE SUSP 30 ML CUP PO PRN (08:45)
[2016-10-12] MEDS: predniSONE 10 MG TAB PO SCH ×2 (09:00→20:09)
[2016-10-12] MEDS: LISINOPRIL 20 MG TAB PO SCH ×2 (09:00→20:09)
[2016-10-12] MEDS: SODIUM CHLORIDE 0.9% FLUSH 5 ML FLUSH IVF SCH ×2 (09:00→20:11)
[2016-10-12] MEDS: levETIRAcetam 500 MG TAB PO SCH (09:00)
[2016-10-12] MEDS: THIAMINE INJ 100 MG in SODIUM CHLORIDE 0.9% INJ 100 ML IV SCH (09:14)
[2016-10-12] MEDS: DOCUSATE SODIUM 100 MG/10 ML UDC PO SCH ×2 (09:14→20:11)
[2016-10-12] MEDS: SODIUM PHOSPHATE INJ 30 MMOL in SODIUM CHLOR 0.9% 250 ML INJ 240 ML IV PRN (09:15)
[2016-10-12] MEDS: levETIRAcetam INJ 500 MG in SODIUM CHLORIDE 0.9% INJ 100 ML IV SCH ×2 (10:33→20:11)
--- NOTE | 2016-10-12 11:22 | HHI.CCPN ---
Subjective Brief History This 64-year-old male was apparently in a bar, fell backward from the standing or sitting position and is brought as a priority 1 trauma alert because of the LOC and on the scene Rebeca coma scale was 10. The patient is obviously inebriated alcohol intoxicated and initial alcohol level was 237. The patient brought on a spinal board with C-collar in place. Patient underwent CT scan of the head which revealed left fronto parietal areas of hemorrhage and chronic encephalomalacia Patient was initially placed in the ICU for observation then developed seizures The CT of the brain has worsened and patient's inability to clear secretions length to hypoxemia and tachypnea requiring intubation 24 Hour Review/Hospital Course 10/11/2016 No acute events overnight. Patient has remained lethargic. 10/12/16 Patient developed seizures and the repeat CAT scan revealed some more prominent the evolving hemorrhage of the left temporoparietal area commensurate with patient's decreased level of consciousness Inability to clear secretions in combination of decreased level of consciousness with seizures necessitates intubation and currently patient is intubated and ventilated Great care by Dr. Davis throughout the night Objective Vital Signs Date Time Temp Pulse Resp B/P Pulse Ox O2 Delivery O2 Flow Rate FiO2 10/12/16 08:53 98 50 10/12/16 04:00 78 10/12/16 04:00 98.9 20 97/59 10/11/16 19:00 Nasal Cannula 10/11/16 13:19 2.00 Intake and Output 10/11/16 10/11/16 10/11/16 07:59 15:59 23:59 Intake Total 641 ml 1007 ml 946 ml Output Total 1000 ml 1450 ml 275 ml Balance -359 ml -443 ml 671 ml Result Diagram: 10/12/16 0447 10/12/16 0447 Other Results Laboratory Tests Test 10/12/16 03:58 Blood Gas Puncture Site RT BRACHIAL Blood Gas Patient Temperature 98.6 Blood Gas HCO3 22 mmol/L (22-26) Blood Gas Base Excess -1.7 mmol/L (-2-2) Blood Gas Oxygen Saturation 98 % (90-100) Arterial Blood pH 7.44 (7.380-7.420) Arterial Blood Partial 33 mmHg (38-42) Pressure CO2 Arterial Blood Partial 172 mmHg Pressure O2 (61-120) Arterial Blood Oxygen Content 16.0 Vol % (12.0-20.0) Arterial Blood 1.1 % (0-4) Carboxyhemoglobin Arterial Blood Methemoglobin 0.8 % (0-2) Blood Gas Hemoglobin 11.4 G/DL (12.0-16.0) Oxygen Delivery Device VENTILATOR Blood Gas Ventilator Setting PRVC/AC Blood Gas Inspired Oxygen 50 % Imaging Last [address] 10/12/16 0600 Signed Impressions: Service Date/Time: Wednesday, October 12, 2016 05:17 - CONCLUSION: 1. Mild interval increase in the left subarachnoid hemorrhage and focal small area of parenchymal contusion. 2. Small low density subdural hygromas are now noted over the frontal and parietal convexities. 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 +LOC. + ETOH, GCS 14 on arrival ASSESSMENT AND PLAN: NEUROLOGICAL: EtOH level 239 on admission. Monitor for EtOH withdrawal. Ativan when necessary. Neuro checks q 2 hours. Monitor for seizures. Placed on prophylactic Keppra. HOB elevated 30 degrees Neurosurgery consulted. CARDIOVASCULAR: HR = 80's-110. BP hypertensive. PO Lisinopril. Labetalol IV, Hydralazine IV ordered PRN. IVF: NS @ 100mL/H. MVI bag. Continually monitor for hemodynamic instability (shock and hypotension) Follow CMP Electrolyte protocol RESPIRATORY: O2 Sats Monitor for hypoxemia Pulmonary toilet L&S as needed. Bronchodilators - Duonebs. GASTROINTESTINAL: Diet clear liquids when more alert. Bowel regimen Colace, MOM. No BM yet. RENAL / URINARY: I&O -359 BUN / creat 5/0.82 Voids to urinal. ENDOCRINE: BGM WNL HEMATOLOGY: H&H 13.4/38.3 PLT 220 Continue to monitor for signs and symptoms of bleeding Transfuse for < 7.0 INFECTIOUS DISEASE: Follow CBC WBC - 17.4 Afebrile Administer antipyretics for temp as needed. Maintain vigorous aseptic care of IVs to avoid blood stream infection. Lines: PIV's. PROPHYLAXIS: GI Protonix IV. DVT - SCD's. SKIN: Warm / Dry ACTIVITY: Status - BR PT and OT evaluating. CASE MANAGEMENT: Consulted for assist with DC planning. Placement - disposition. Discussed with RN at bedside. Pt remains critically ill in the ICU. Trauma surgery will round and evaluate patient and treatment plan on a daily basis. Attestation The exam, history, and the medical decision-making described in the above note were completed with the assistance of the mid-level provider. I reviewed and agree with the findings presented. I attest that I had a [id number] encounter with the patient on the same day, and personally performed and documented my assessment and findings in the medical record. Critical care time 50 minutes. Jak Flores MD Oct 12, 2016 11:22
--- NOTE | 2016-10-12 14:32 | HHI.NSPN ---
History Chief Complaint: not verbalizing well Interval History 67-year-old male admitted 10/10/16 following a fall, inebriated, with CT scan revealing relatively small left frontal parenchymal hemorrhage. 10/11/16 patient required intubation with mechanical ventilation due to decreasing mental status, respiratory difficulty. Positive seizure activity witnessed at [facility]. Exam Results Vital Signs Date Time Temp Pulse Resp B/P Pulse Ox O2 Delivery O2 Flow Rate FiO2 10/12/16 11:42 100 40 10/12/16 10:00 80 10/12/16 08:00 98.4 25 109/61 10/12/16 07:00 Mechanical Ventilator 10/11/16 13:19 2.00 Intake and Output 10/11/16 10/11/16 10/11/16 07:59 15:59 23:59 Intake Total 641 ml 1007 ml 946 ml Output Total 1000 ml 1450 ml 275 ml Balance -359 ml -443 ml 671 ml Physical Examination Intubated and sedated. Minimal I opening to sternal rub. Pupils 2 mm nonreactive. Mild oculocephalic movements Mild grimacing deep pain Flexes upper extremities that pain with mild grasp. Lab, Micro, Other Results 10/12/16 CT scan head images reviewed by the undersigned. Agree with findings as noted below: Head CT 10/12/16 0600 Signed Impressions: Service Date/Time: Wednesday, October 12, 2016 05:17 - CONCLUSION: 1. Mild interval increase in the left subarachnoid hemorrhage and focal small area of parenchymal contusion. 2. Small low density subdural hygromas are now noted over the frontal and parietal convexities. Lucio Tyler MD Laboratory Tests Test 10/11/16 10/12/16 10/12/16 22:46 03:58 04:47 Phosphorus Level 2.1 MG/DL B-Type Natriuretic Peptide 595 PG/ML Arterial Blood pH 7.44 Arterial Blood Partial 33 mmHg Pressure CO2 Arterial Blood Partial 172 mmHg Pressure O2 Blood Gas Hemoglobin 11.4 G/DL White Blood Count 14.1 TH/MM3 Red Blood Count 3.22 MIL/MM3 Hemoglobin 11.5 GM/DL Hematocrit 33.3 % Mean Corpuscular Volume 103.5 FL Mean Corpuscular Hemoglobin 35.8 PG Neutrophils (%) (Auto) 87.3 % Lymphocytes (%) (Auto) 4.5 % Neutrophils # (Auto) 12.3 TH/MM3 Lymphocytes # (Auto) 0.6 TH/MM3 Monocytes # (Auto) 1.1 TH/MM3 Sodium Level 134 MEQ/L Estimat Glomerular Filtration 65 ML/MIN Rate Random Glucose 140 MG/DL Calcium Level 7.4 MG/DL Protein Corrected Calcium 8.1 MG/DL Total Protein 5.9 GM/DL Medical Decision Making Impression and Plan Impression: 1. Traumatic brain injury with mild increase in left primarily frontotemporal contusion and subarachnoid hemorrhage on CT scan of 10/12/16. No significant mass effect. Mild bilateral subdural hygromas. Moderate diffuse atrophy. Plan: Continuing close ISC neuro checks and vital signs. Continue Keppra and Dilantin Observe for further seizure activity Ventilatory support continuing per intensivists. Non-chemical DVT prophylaxis Ulcer prophylaxis Sourav Jerry MD Oct 12, 2016 14:32
--- NOTE | 2016-10-12 19:13 | MG ---
cc: DYLON LINDSEY M.D. Lab No: Date: 10/12/2016 Age: 65 Sex: M Race: REQUESTING PHYSICIAN: NATALIA Jessica. An EEG was obtained on this 65-year-old patient being evaluated for subarachnoid hemorrhage and brain contusion. MEDICATIONS: 1. Dilantin. 2. Propofol. 3. Thiamine. DESCRIPTION OF THE RECORD: The patient is intubated and sedated. Diprivan was turned down from 50 to 25 micrograms four minutes ago into the EEG. The study shows low amplitude beta activity diffusely. There are some alpha rhythms in the higher alpha frequency. The background seems to be poorly reactive. This is probably a representation of the sedation. There are some occasional theta and some delta rhythms of low amplitude in the central and frontal head regions. Photic stimulation showed no significant change. The patient did start showing some muscle artifact towards the end of the photic stimulation probably indicating weaning off Diprivan at that time. INTERPRETATION: This EEG is abnormal with generalized low amplitude rhythms, lack of alpha activity, lack of awake type of background rhythms. A lot of the findings could be explained on the basis of sedation. No epileptiform or ictal discharge present. Followup EEGs might be of benefit according to the clinical course. Dylon Lindsey MD [facility] /5:51 PM /7:10 PM
[2016-10-13] VITALS (17 sets, daily range): BP systolic 120–183; BP diastolic 64–93; PULSE 74–110; RESP 14–26; TEMP 97.7–99.3; O2SAT 96–100
[2016-10-13] MEDS: PANTOPRAZOLE SODIUM 40 MG VIAL IV SCH (00:10)
[2016-10-13] MEDS: PROPOFOL 1000 MG/100 ML INJ 100 ML IV SCH ×5 (00:10→17:58)
[2016-10-13] MEDS: LORazepam 2 MG/ML VIAL IV PUSH PRN ×3 (00:11→20:54)
[2016-10-13] MEDS: hydrALAZINE HCL 20 MG/ML VIAL IV PUSH SCH ×5 (00:11→23:00)
[2016-10-13] MEDS: SODIUM CHLOR 0.9% 1000 ML INJ 1,000 ML IV SCH ×3 (00:12→20:54)
[2016-10-13 03:50] LABS: HEMATOCRIT 30.7 % (39.0-51.0); MEAN CELL VOLUME 103.7 FL (80.0-100.0); MEAN CORPUSCULAR HEMOGLOBIN 36.8 PG (27.0-34.0); MEAN CORPUSCULAR HGB CONC 35.5 % (32.0-36.0); PLATELET COUNT 176 TH/MM3 (150-450); RED BLOOD COUNT 2.96 MIL/MM3 (4.50-5.90); RED CELL DISTRIBUTION WIDTH 14.8 % (11.6-17.2); REVIEW FLAG FINAL; WHITE BLOOD COUNT 14.5 TH/MM3 (4.0-11.0)
[2016-10-13 04:26] LABS: BICARBONATE 18.4 MEQ/L (21.0-32.0); MAGNESIUM 1.7 MG/DL (1.5-2.5); POTASSIUM 3.4 MEQ/L (3.5-5.1)
[2016-10-13 04:43] LABS: CALCIUM-PROTEIN CORRECTED 7.9 MG/DL (8.5-10.1)
[2016-10-13] MEDS: PHENYTOIN INJ 100 MG/2 ML VIAL IV SCH ×3 (05:37→20:55)
[2016-10-13] MEDS: POTASSIUM CL 40 MEQ/30 ML LIQ UDC PO/TUBE PRN (05:38)
[2016-10-13] MEDS: SODIUM PHOSPHATE INJ 30 MMOL in SODIUM CHLOR 0.9% 250 ML INJ 240 ML IV PRN (06:11)
[2016-10-13] MEDS: RESP: ALBUTEROL 2.5 MG/IPRATROPIUM 0.5 MG NEB (SCH) NEB ×3 (07:33→19:37)
[2016-10-13] MEDS: SODIUM CHLORIDE 0.9% FLUSH 5 ML FLUSH IVF SCH ×2 (09:00→20:54)
[2016-10-13] MEDS: LISINOPRIL 20 MG TAB PO SCH ×2 (09:00→20:55)
[2016-10-13] MEDS: DOCUSATE SODIUM 100 MG/10 ML UDC PO SCH ×2 (09:37→20:54)
[2016-10-13] MEDS: predniSONE 10 MG TAB PO SCH ×2 (09:38→20:55)
[2016-10-13] MEDS: levETIRAcetam INJ 500 MG in SODIUM CHLORIDE 0.9% INJ 100 ML IV SCH ×2 (09:39→20:53)
[2016-10-13] MEDS: THIAMINE INJ 100 MG in SODIUM CHLORIDE 0.9% INJ 100 ML IV SCH (09:39)
[2016-10-13] MEDS: CHLORHEXIDINE 0.12% (ORAL KIT) 15 ML CUP MT SCH ×2 (09:40→20:53)
[2016-10-13] MEDS: MULTIVITAMIN INJ 10 ML, THIAMINE INJ 100 MG, FOLIC ACID INJ 1 MG in SODIUM CHLORID 0.9%... IV SCH (11:00)
--- NOTE | 2016-10-13 13:00 | HHI.CCPN ---
Subjective Brief History This 64-year-old male was apparently in a bar, fell backward from the standing or sitting position and is brought as a priority 1 trauma alert because of the LOC and on the scene Rebeca coma scale was 10. The patient is obviously inebriated alcohol intoxicated and initial alcohol level was 237. The patient brought on a spinal board with C-collar in place. Patient underwent CT scan of the head which revealed left fronto parietal areas of hemorrhage and chronic encephalomalacia Patient was initially placed in the ICU for observation then developed seizures The CT of the brain has worsened and patient's inability to clear secretions length to hypoxemia and tachypnea requiring intubation 24 Hour Review/Hospital Course 10/11/2016 No acute events overnight. Patient has remained lethargic. 10/12/16 Patient developed seizures and the repeat CAT scan revealed some more prominent the evolving hemorrhage of the left temporoparietal area commensurate with patient's decreased level of consciousness Inability to clear secretions in combination of decreased level of consciousness with seizures necessitates intubation and currently patient is intubated and ventilated Great care by Dr. 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 Patient with the left the cerebral temporoparietal contusion developed seizures and decreased flow of consciousness with slightly enlarging contusion and had to be intubated night before last No new seizures Patient on minimal amounts of propofol Keppra 500 mg twice a day Dilantin 100 mg 3 times a day We will keep intubated and ventilated total patient starts waking up and is able to keep up her airway Hemodynamic/Cardiac Hemodynamically patient is stable Pulmonary/Respiratory Bilateral good breath sounds and good pulmonary expansion with the adequate ABGs Abdomen/GI Nutrition We'll started on enteral feedings today Patient is alcoholic and is receiving banana bag in addition Assessment and Plan Plan STILLAGUAMISH: Patient had a fall standing outside of a bar. +LOC. + ETOH, GCS 14 on arrival ASSESSMENT AND PLAN: NEUROLOGICAL: EtOH level 239 on admission. Monitor for EtOH withdrawal. Ativan when necessary. Neuro checks q 2 hours. Monitor for seizures. Placed on prophylactic Keppra. HOB elevated 30 degrees Neurosurgery consulted. CARDIOVASCULAR: HR = 80's-110. BP hypertensive. PO Lisinopril. Labetalol IV, Hydralazine IV ordered PRN. IVF: NS @ 100mL/H. MVI bag. Continually monitor for hemodynamic instability (shock and hypotension) Follow [facility] Electrolyte protocol RESPIRATORY: O2 Sats Monitor for hypoxemia Pulmonary toilet L&S as needed. Bronchodilators - Duonebs. GASTROINTESTINAL: Diet clear liquids when more alert. Bowel regimen Colace, MOM. No BM yet. RENAL / URINARY: I&O -359 BUN / creat 5/0.82 Voids to urinal. ENDOCRINE: BGM WNL HEMATOLOGY: H&H 13.4/38.3 PLT 220 Continue to monitor for signs and symptoms of bleeding Transfuse for < 7.0 INFECTIOUS DISEASE: Follow CBC WBC - 17.4 Afebrile Administer antipyretics for temp as needed. Maintain vigorous aseptic care of IVs to avoid blood stream infection. Lines: PIV's. PROPHYLAXIS: GI Protonix IV. DVT - SCD's. SKIN: Warm / Dry ACTIVITY: Status - BR PT and OT evaluating. CASE MANAGEMENT: Consulted for assist with DC planning. Placement - disposition. Discussed with RN at bedside. Pt remains critically ill in the ICU. Trauma surgery will round and evaluate patient and treatment plan on a daily basis. Attestation The exam, history, and the medical decision-making described in the above note were completed with the assistance of the mid-level provider. I reviewed and agree with the findings presented. I attest that I had a [id number] encounter with the patient on the same day, and personally performed and documented my assessment and findings in the medical record. Critical care time 40 minutes. Jak Flores MD Oct 13, 2016 13:00
[2016-10-13] MEDS: FUROSEMIDE 20 MG TAB PO SCH (13:10)
--- NOTE | 2016-10-13 15:58 | PD.HHIRCNE ---
Disclaimer Patient was given an explanation of the nature and purpose of the evaluation. Patient agreed to proceed with the evaluation and treatment plan. History Reason for Referral Patient is referred for baseline evaluation to assess cognitive, behavioral and emotional aspects of the injury. Additional Psychosocial Hx Smoking Status: Smoker Current Status UNK Additional Commemts Patient sustained a fall at a bar, with an initial alcohol level of 237. Overall Comments Patient's medical, surgical, psychiatric, educational and social histories unknown at the present time. Past Surgical/Medical History Major surgery in last 100 days: Unknown Medication Active Medications Furosemide (Lasix) 20 mg DAILY PO Last administered on 10/13/16at 13:10; Admin Dose 20 MG; Start 10/13/16 at 11:00 Multivitamins/ Thiamine HCl/ Folic Acid/Sodium Chloride (Mvi-12 Inj/ Thiamine Inj/ Folvite Inj/NS 500 ml Inj) 511.2 ml @ 125 mls/hr Q24H IV Last administered on 10/13/16at 11:00; Admin Dose 125 MLS/HR; Start 10/13/16 at 12: 00; Stop 10/15/16 at 16:06 Mental Status Assessment Orientation: unable to asses Self, unable to asses Place, unable to asses Time , unable to asses Situation Observations Patient was unable to undergo mental status examination due to unconscious condition. He is presently intubated Adjustment/Coping Assessment Adjustment/Coping: Not Assessed: Depression, Anxiety, Pain, Apathy, Awareness, Insight LTG Status: Deferred STG Status: Deferred Team Members: Neuropsychologist Effort Assessment Effort: Other Summary/Diagnosis Summary Patient has small left fronto-temporal contusion, without significant mass effect superimposed on moderate diffuse atrophy. Formal mental status assessment unable to be completed due to unconscious state. Impressions Any neurocognitive deficits due to his brain trauma will need to be considered within the context of an underlying longstanding substance-induced major/minor neurocognitive disorder. Initial Rancho Level: I Diagnosis: (1) Cerebral cortex contusion Recommendations Recommendations Recommendations This clinician will continue to follow with you throughout the course of this patients treatment, and I will be available to meet with the patients family/ support system to facilitate their understanding and the ongoing care of their family member. Session Attendance Variance 10min Kareem Luther PhD Oct 13, 2016 15:58
--- NOTE | 2016-10-13 19:26 | HHI.NSPN ---
History Chief Complaint: not verbalizing well Interval History 67-year-old male admitted 10/10/16 following a fall, inebriated, with CT scan revealing relatively small left frontal parenchymal hemorrhage. 10/11/16 patient required intubation with mechanical ventilation due to decreasing mental status, respiratory difficulty. Positive seizure activity witnessed at [facility]. 10/13/16: Remains intubated, sedated. No definite seizure activity reported Exam Results Vital Signs Date Time Temp Pulse Resp B/P Pulse Ox O2 Delivery O2 Flow Rate FiO2 10/13/16 18:00 90 10/13/16 16:00 40 10/13/16 16:00 98.4 18 164/86 100 10/12/16 07:00 Mechanical Ventilator 10/11/16 13:19 2.00 Intake and Output 10/12/16 10/12/16 10/13/16 08:00 16:00 00:00 Intake Total 729 ml 1187 ml 1801 ml Output Total 225 ml 275 ml 350 ml Balance 504 ml 912 ml 1451 ml Physical Examination Intubated and sedated. No eye opening to sternal rub. Pupils 2 mm nonreactive. Mild oculocephalic movements Mild grimacing deep pain Flexes upper extremities to deep pain with mild grasp. Not following commands Lab, Micro, Other Results 10/12/16 EEG report indicates no definite focal seizure activity Laboratory Tests Test 10/13/16 10/13/16 03:25 17:24 White Blood Count 14.5 TH/MM3 Red Blood Count 2.96 MIL/MM3 Hemoglobin 10.9 GM/DL Hematocrit 30.7 % Mean Corpuscular Volume 103.7 FL Mean Corpuscular Hemoglobin 36.8 PG Mean Corpuscular Hemoglobin 35.5 % Concent Red Cell Distribution Width 14.8 % Platelet Count 176 TH/MM3 Mean Platelet Volume 8.3 FL Sodium Level 139 MEQ/L Potassium Level 3.4 MEQ/L Chloride Level 108 MEQ/L Carbon Dioxide Level 18.4 MEQ/L Anion Gap 13 MEQ/L Blood Urea Nitrogen 14 MG/DL Creatinine 0.84 MG/DL Estimat Glomerular Filtration 91 ML/MIN Rate Random Glucose 125 MG/DL Calcium Level 7.0 MG/DL Protein Corrected Calcium 7.9 MG/DL Phosphorus Level 2.3 MG/DL 3.3 MG/DL Magnesium Level 1.7 MG/DL Total Protein 5.4 GM/DL Medical Decision Making Impression and Plan Impression: 1. Traumatic brain injury with mild increase in left primarily frontotemporal contusion and subarachnoid hemorrhage on CT scan of 10/12/16. No significant mass effect. Mild bilateral subdural hygromas. Moderate diffuse atrophy. Plan: Repeat CT scan head will be ordered for 10/15/16, unless significant change in neurologic exam. Continuing close ISC neuro checks and vital signs. Continue Keppra and Dilantin Observe for further seizure activity Ventilatory support continuing per intensivists. Non-chemical DVT prophylaxis Ulcer prophylaxis Sourav Jerry MD Oct 13, 2016 19:26
[2016-10-13] MEDS: LABETALOL HCL 100 MG/20 ML VIAL IV PUSH PRN (20:13)
[2016-10-14] VITALS (19 sets, daily range): BP systolic 120–174; BP diastolic 65–88; PULSE 76–122; RESP 21–30; TEMP 98.6–100.4; O2SAT 93–100
[2016-10-14] MEDS: PANTOPRAZOLE SODIUM 40 MG VIAL IV SCH ×2 (01:58→23:55)
[2016-10-14] MEDS: PROPOFOL 1000 MG/100 ML INJ 100 ML IV SCH ×5 (01:59→22:42)
[2016-10-14 04:23] LABS: HEMATOCRIT 33.5 % (39.0-51.0); MEAN CELL VOLUME 104.7 FL (80.0-100.0); MEAN CORPUSCULAR HEMOGLOBIN 35.4 PG (27.0-34.0); MEAN CORPUSCULAR HGB CONC 33.8 % (32.0-36.0); PLATELET COUNT 185 TH/MM3 (150-450); REVIEW FLAG FINAL; WHITE BLOOD COUNT 12.4 TH/MM3 (4.0-11.0)
--- NOTE | 2016-10-14 04:57 | RADRPT ---
EXAM DATE/TIME: 10/14/2016 04:37 [facility] COMPARISON: CHEST SINGLE AP, October 11, 2016, 21:38. INDICATIONS : Short of breath. MEDICAL HISTORY : None. SURGICAL HISTORY : None. ENCOUNTER: Subsequent ACUITY: 4 - 6 days PAIN SCORE: Non-responsive. LOCATION: Bilateral chest FINDINGS: Left greater than right basilar consolidation not significantly changed. Small left pleural effusion suspected. No pneumothorax. Heart size stable, upper limits of normal. Thoracic aorta is tortuous and atherosclerotic. Endotracheal tube tip is about 3 cm above the miguel a. There is a nasogastric tube again seen, coursin g into the stomach. CONCLUSION: No significant change. Willian Reynaga MD on October 14, 2016 at 4:55 Board Certified Radiologist. This report was verified electronically.
[2016-10-14 05:09] LABS: BLOOD GAS BASE EXCESS -3.5 mmol/L (-2-2); BLOOD GAS CARBOXYHEMOGLOBIN 1.1 % (0-4); BLOOD GAS HCO3 20 mmol/L (22-26); BLOOD GAS METHEMOGLOBIN 0.7 % (0-2); BLOOD GAS O2 HGB SATURATION 96 % (90-100); BLOOD GAS OXYGEN CONTENT 15.3 Vol % (12.0-20.0); BLOOD GAS PCO2 30 mmHg (38-42); BLOOD GAS PO2 104 mmHg (61-120); BLOOD GAS TOTAL HGB 11.2 G/DL (12.0-16.0); CRITICAL VALUE NO; OXYGEN DEVICE VENTILATOR; TEMP CORR TO 98.6
[2016-10-14 05:09] LABS: BICARBONATE 19.3 MEQ/L (21.0-32.0); MAGNESIUM 1.7 MG/DL (1.5-2.5); POTASSIUM 3.3 MEQ/L (3.5-5.1)
[2016-10-14 05:10] LABS: DRAW SITE RT RADIAL; FIO2 40 %; NUMBER OF ARTERIAL PUNCTURES 1; STAT NO; ULNAR PULSE PRESENT
[2016-10-14 05:21] LABS: CALCIUM-PROTEIN CORRECTED 8.2 MG/DL (8.5-10.1)
[2016-10-14] MEDS: PHENYTOIN INJ 100 MG/2 ML VIAL IV SCH ×3 (06:10→22:44)
[2016-10-14] MEDS: hydrALAZINE HCL 20 MG/ML VIAL IV PUSH SCH ×4 (06:10→22:43)
[2016-10-14] MEDS: POTASSIUM CL 40 MEQ/30 ML LIQ UDC PO/TUBE PRN (06:11)
[2016-10-14] MEDS: SODIUM CHLOR 0.9% 1000 ML INJ 1,000 ML IV SCH ×2 (06:13→15:46)
[2016-10-14] MEDS: RESP: ALBUTEROL 2.5 MG/IPRATROPIUM 0.5 MG NEB (SCH) NEB ×3 (08:12→20:30)
[2016-10-14] MEDS: DOCUSATE SODIUM 100 MG/10 ML UDC PO SCH ×2 (09:00→21:00)
[2016-10-14] MEDS: SODIUM CHLORIDE 0.9% FLUSH 5 ML FLUSH IVF SCH ×2 (09:00→22:45)
[2016-10-14] MEDS: predniSONE 10 MG TAB PO SCH ×2 (09:40→22:44)
[2016-10-14] MEDS: FUROSEMIDE 20 MG TAB PO SCH (09:40)
[2016-10-14] MEDS: LISINOPRIL 20 MG TAB PO SCH ×2 (09:40→22:44)
[2016-10-14] MEDS: levETIRAcetam INJ 500 MG in SODIUM CHLORIDE 0.9% INJ 100 ML IV SCH ×2 (09:41→22:43)
[2016-10-14] MEDS: THIAMINE INJ 100 MG in SODIUM CHLORIDE 0.9% INJ 100 ML IV SCH (09:41)
[2016-10-14] MEDS: CHLORHEXIDINE 0.12% (ORAL KIT) 15 ML CUP MT SCH ×2 (09:42→22:42)
[2016-10-14] MEDS: POTASSIUM CHLORIDE 25 MEQ EFFERVESCENT TAB PO SCH (10:57)
[2016-10-14] MEDS: MULTIVITAMIN INJ 10 ML, THIAMINE INJ 100 MG, FOLIC ACID INJ 1 MG in SODIUM CHLORID 0.9%... IV SCH (10:57)
[2016-10-14] MEDS ORDERED: METOPROLOL TARTRATE 5 MG/5 ML VIAL IV PUSH PRN (11:00)
--- NOTE | 2016-10-14 13:52 | HHI.PR ---
Neuropsych Progress Notes/Response to Tx Time with Patient: 15 minutes Premorbid psychological status Essentially unknown. The patient does appear to have chronic substance dependence issues, given toxicology and neuroimaging results. Maximizing acute care outcome It is recommended that the patient be monitored for emergent behavioral impulsivity as the medical condition evolves. This patients neuropathological challenges may limit their rehabilitation potential going forward, in addition to premorbid psychosocial challenges, and these challenges will require specialized therapeutic skills to maximize outcome. Anticipated Problems Ongoing areas of concern will include behavioral impulsivity, lack of insight and judgment, which may or may not be expected to improve with time and treatment. This patient likely has an underlying major/minor neurocognitive disorder related to his substance dependence. Treatment Plan To be determined based on his ongoing pattern of recovery. Current Rancho Level: I Diagnosis: (1) Cerebral cortex contusion Status: Acute Progress Note Narrative Ongoing daily encounter with patient to monitor course of recovery, and to facilitate outcome. Patient was unresponsive and was unable to follow simple one-step commands. Problem Qualifiers (1) Cerebral cortex contusion: Qualified Code: S06.2X9D - Cerebral cortex contusion, with loss of consciousness of unspecified duration, subsequent encounter Kareem Luther PhD Oct 14, 2016 13:52
--- NOTE | 2016-10-14 14:37 | HHI.CCPN ---
Subjective Brief History This 64-year-old male was apparently in a bar, fell backward from the standing or sitting position and is brought as a priority 1 trauma alert because of the LOC and on the scene Rebeca coma scale was 10. The patient is obviously inebriated alcohol intoxicated and initial alcohol level was 237. The patient brought on a spinal board with C-collar in place. Patient underwent CT scan of the head which revealed left fronto parietal areas of hemorrhage and chronic encephalomalacia Patient was initially placed in the ICU for observation then developed seizures The CT of the brain has worsened and patient's inability to clear secretions length to hypoxemia and tachypnea requiring intubation 24 Hour Review/Hospital Course 10/11/2016 No acute events overnight. Patient has remained lethargic. 10/12/16 Patient developed seizures and the repeat CAT scan revealed some more prominent the evolving hemorrhage of the left temporoparietal area commensurate with patient's decreased level of consciousness Inability to clear secretions in combination of decreased level of consciousness with seizures necessitates intubation and currently patient is intubated and ventilated Great care by Dr. Davis throughout the night 10/13/16 Patient remains on the ventilator No more seizures Pupils equal and reactive EEG was negative for repeated seizures 10/15/16 Patient doing well at this time No more seizures Sedation indication patient moves all 4 extremities however left weaker than the right which is consistent with right frontoparietal hemorrhage and contusion Once neurologic function is sufficiently improved and patient can maintain the airway, he will be weaned to extubate Objective Vital Signs Date Time Temp Pulse Resp B/P Pulse Ox O2 Delivery O2 Flow Rate FiO2 10/14/16 12:00 117 10/14/16 12:00 99.3 21 147/72 95 10/14/16 12:00 40 10/12/16 07:00 Mechanical Ventilator 10/11/16 13:19 2.00 Intake and Output 10/13/16 10/13/16 10/14/16 08:00 16:00 00:00 Intake Total 1113 ml 825 ml 1789 ml Output Total 125 ml 200 ml 750 ml Balance 988 ml 625 ml 1039 ml Result Diagram: 10/14/16 0352 10/14/16 0352 Other Results Laboratory Tests Test 10/14/16 05:00 Blood Gas Puncture Site RT RADIAL Blood Gas Patient Temperature 98.6 Blood Gas HCO3 20 mmol/L (22-26) Blood Gas Base Excess -3.5 mmol/L (-2-2) Blood Gas Oxygen Saturation 96 % (90-100) Arterial Blood pH 7.45 (7.380-7.420) Arterial Blood Partial 30 mmHg (38-42) Pressure CO2 Arterial Blood Partial 104 mmHg Pressure O2 (61-120) Arterial Blood Oxygen Content 15.3 Vol % (12.0-20.0) Arterial Blood 1.1 % (0-4) Carboxyhemoglobin Arterial Blood Methemoglobin 0.7 % (0-2) Blood Gas Hemoglobin 11.2 G/DL (12.0-16.0) Oxygen Delivery Device VENTILATOR Blood Gas Ventilator Setting COMMENT Blood Gas Inspired Oxygen 40 % Imaging Last 24 hours Impressions Chest X-Ray 10/14/16 0600 Signed Impressions: Service Date/Time: Friday, October 14, 2016 04:37 - CONCLUSION: No significant change. 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 Patient is a intubated and ventilated on propofol Parietal and Dilantin No more seizure activity noted On sedation indication patient is moving all 4 extremities right stronger than the left Once patient is sufficiently recovered neurologically he'll be weaned to extubate I do not believe the patient will require tracheostomy Hemodynamic/Cardiac Hemodynamically remains intact Pulmonary/Respiratory Good bilateral breath sounds and good oxygen exchange with good PO2 FiO2 gradient Abdomen/GI Nutrition Abdomen is soft enteral feedings well tolerated Renal/I&O Good urine output Assessment and Plan Plan NINILCHIK: Patient had a fall standing outside of a bar. +LOC. + ETOH, GCS 14 on arrival ASSESSMENT AND PLAN: NEUROLOGICAL: EtOH level 239 on admission. Monitor for EtOH withdrawal. Ativan when necessary. Neuro checks q 2 hours. Monitor for seizures. Placed on prophylactic Keppra. HOB elevated 30 degrees Neurosurgery consulted. CARDIOVASCULAR: HR = 80's-110. BP hypertensive. PO Lisinopril. Labetalol IV, Hydralazine IV ordered PRN. IVF: NS @ 100mL/H. MVI bag. Continually monitor for hemodynamic instability (shock and hypotension) Follow [facility] Electrolyte protocol RESPIRATORY: O2 Sats Monitor for hypoxemia Pulmonary toilet L&S as needed. Bronchodilators - Duonebs. GASTROINTESTINAL: Diet clear liquids when more alert. Bowel regimen Colace, MOM. No BM yet. RENAL / URINARY: I&O -359 BUN / creat 5/0.82 Voids to urinal. ENDOCRINE: BGM WNL HEMATOLOGY: H&H 13.4/38.3 PLT 220 Continue to monitor for signs and symptoms of bleeding Transfuse for < 7.0 INFECTIOUS DISEASE: Follow CBC WBC - 17.4 Afebrile Administer antipyretics for temp as needed. Maintain vigorous aseptic care of IVs to avoid blood stream infection. Lines: PIV's. PROPHYLAXIS: GI Protonix IV. DVT - SCD's. SKIN: Warm / Dry ACTIVITY: Status - BR PT and OT evaluating. CASE MANAGEMENT: Consulted for assist with DC planning. Placement - disposition. Discussed with RN at bedside. Pt remains critically ill in the ICU. Trauma surgery will round and evaluate patient and treatment plan on a daily basis. Attestation The exam, history, and the medical decision-making described in the above note were completed with the assistance of the mid-level provider. I reviewed and agree with the findings presented. I attest that I had a [id number] encounter with the patient on the same day, and personally performed and documented my assessment and findings in the medical record. Critical care time 45 minutes. Jak Flores MD Oct 14, 2016 14:37
--- NOTE | 2016-10-14 15:26 | PD.CONS ---
HPI Service Rehabilitation Medicine Consult Requested By [facility] trauma service Reason for Consult Comprehensive rehabilitation evaluation. Primary Care Physician No Primary Care Physician History of Present Illness Ariel Elliott is a 65-year-old male admitted [facility] 10/10/16 after he fell backward at a bar. Glascow coma scale was 10. EtOH [address] 10/10/16 showed mild left frontotemporal contusion. Follow-up head CT 10/12/16 showed mild interval increase in left subarachnoid hemorrhage and focal small areas of parenchymal contusion in the right frontal parietal region. On 10/12/16 was noted to have a seizure and required intubation. He's currently on Keppra. Review of Systems ROS Limitations: Intubated, Altered Mental Status Past Family Social History Allergies: Coded Allergies: Bee Sting (Verified Allergy, Severe, Anaphylaxis, 09/04/15) Codeine (Verified Allergy, Mild, SWELLING, ITCHING, 09/04/15) Past Medical History Unable to obtain Past Surgical History Unable to obtain Current Medications Current Medications Medications (Trade) Dose Ordered Sig/Brandon Route Start Time Stop Time Status Last Admin (NS 1000 ml Inj) 1,000 ml @ 100 mls/hr Q10H IV 10/10/16 22:20 10/14/16 06:13 (NS Flush) 2 ml UNSCH PRN IVF 10/10/16 22:30 (NS Flush) 2 ml BID IVF 10/11/16 09:00 10/13/16 20:54 (Zofran Inj) 4 mg Q6H PRN IV 10/10/16 22:30 (Protonix Inj) 40 mg Q24H IV 10/10/16 23:00 10/14/16 01:58 (Tylenol) 650 mg Q6H PRN PO 10/10/16 22:30 (Narcan Inj) 0.4 mg UNSCH PRN IV 10/10/16 22:30 (Deltasone) 10 mg BID PO 10/11/16 09:00 10/14/16 09:40 (Prinivil) 20 mg Q12HR PO 10/11/16 09:00 10/14/16 09:40 (Trandate Inj) 20 mg Q2H PRN IV PUSH 10/10/16 23:15 10/13/16 20:13 (Apresoline Inj) 10 mg Q6H IV PUSH 10/10/16 23:00 10/14/16 10:57 Lorazepam 1 mg 1 mg Q4H PRN IV PUSH 10/11/16 01:00 10/13/16 09:57 Potassium Chloride 100 ml @ 50 mls/hr Q2H PRN IV 10/11/16 01:15 (KCl 20 Meq Premix Inj) 100 ml @ 50 mls/hr Q2H PRN IV 10/11/16 01:15 Potassium Chloride 40 meq 40 meq UNSCH PRN PO/TUBE 10/11/16 01:15 10/14/16 06:11 Potassium Chloride 100 ml @ 25 mls/hr UNSCH PRN IV 10/11/16 01:15 Potassium Chloride 100 ml @ 50 mls/hr Q2H PRN IV 10/11/16 01:15 10/11/16 04:39 (Magnesium Sulfate Inj/NS Inj) 100 ml @ 50 mls/hr UNSCH PRN IV 10/11/16 01:15 Magnesium Oxide 800 mg 800 mg UNSCH PRN PO 10/11/16 01:15 (Magnesium Sulfate Inj/NS Inj) 100 ml @ 50 mls/hr UNSCH PRN IV 10/11/16 01:15 Potassium Phosphate 2000 mg 2,000 mg Q4H PRN PO 10/11/16 01:15 (Sodium Phosphate Inj/NS 250 ml Inj) 250 ml @ 42 mls/hr UNSCH PRN IV 10/11/16 01:15 10/13/16 06:11 (KCl 40 Meq/30 ml Liq) 40 meq UNSCH PRN PO/TUBE 10/11/16 01:15 Potassium Phosphate 2000 mg 2,000 mg UNSCH PRN PO/TUBE 10/11/16 01:15 (Potassium Phosphate Inj/NS 250 ml Inj) 260 ml @ 42 mls/hr UNSCH PRN IV 10/11/16 01:15 (Dilantin Inj) 100 mg Q8H IV 10/11/16 22:00 10/14/16 15:16 Chlorhexidine Gluconate 15 ml 15 ml BID@08,20 MT 10/12/16 08:00 10/14/16 09:42 Propofol 100 ml @ 0 mls/hr TITRATE IV 10/11/16 21:30 10/14/16 13:28 (Thiamine Inj/NS Inj) 101 ml @ 101 mls/hr DAILY IV 10/11/16 22:00 10/14/16 09:41 (Colace Liq) 100 mg Q12HR PO 10/12/16 09:00 10/13/16 09:37 Magnesium Hydroxide 30 ml 30 ml DAILY PRN PO 10/12/16 08:45 Levetriacetam 500 mg/Sodium Chloride 105 ml @ 420 mls/hr Q12HR IV 10/12/16 10:00 10/14/16 09:41 (Mvi-12 Inj/ Thiamine Inj/ Folvite Inj/NS 500 ml Inj) 511.2 ml @ 125 mls/hr Q24H IV 10/13/16 12:00 10/15/16 16:06 10/14/16 10:57 (Lasix) 20 mg DAILY PO 10/13/16 11:00 10/14/16 09:40 (Lopressor Inj) 5 mg Q6H PRN IV PUSH 10/14/16 11:00 (K-Lyte Cl Eff) 25 meq DAILY PO 10/14/16 11:00 10/14/16 10:57 Family History Unable to obtain Social History Prior to admission patient was noted to be homeless Exam I&O / VS 10/13/16 10/13/16 10/14/16 15:00 23:00 07:00 Intake Total 825 ml 1789 ml 1162 ml Output Total 200 ml 750 ml 250 ml Balance 625 ml 1039 ml 912 ml IV Total 765 ml 1441 ml 817 ml Tube Feeding 258 ml 285 ml Tube Irrigant 60 ml Other 90 ml 60 ml Output Urine Total 200 ml 750 ml 250 ml # Bowel Movements 2 1 0 Vital Signs Date Time Temp Pulse Resp B/P Pulse Ox O2 Delivery O2 Flow Rate FiO2 10/14/16 12:00 117 10/14/16 12:00 99.3 117 21 147/72 95 10/14/16 12:00 40 10/14/16 11:29 40 10/14/16 11:29 93 40 10/14/16 10:00 117 10/14/16 08:12 99 40 10/14/16 08:00 40 10/14/16 08:00 98.6 84 26 120/69 99 10/14/16 08:00 84 10/14/16 06:00 90 10/14/16 04:15 97 40 10/14/16 04:00 40 10/14/16 04:00 76 10/14/16 04:00 98.6 76 23 124/65 100 10/14/16 02:00 85 10/14/16 01:16 97 40 10/14/16 00:00 100.0 91 26 138/76 96 10/14/16 00:00 40 10/14/16 00:00 91 10/13/16 22:00 88 10/13/16 20:00 108 10/13/16 20:00 40 10/13/16 20:00 99.3 110 21 183/93 100 10/13/16 19:30 98 40 10/13/16 18:00 90 10/13/16 16:00 40 10/13/16 16:00 99 10/13/16 16:00 98.4 99 18 164/86 100 10/13/16 15:28 98 40 General: Intubated, Sedated Respiratory: Lungs CTA, Non-labored respirations, Coarse breath sounds Gastrointestinal: Positive Bowel Sounds Cardiovascular: Normal rate, Regular Rhythm Musculoskeletal: ROM (within functional limits) Orientation: unable to asses Self, unable to asses Place, unable to asses Time , unable to asses Situation Neurologic: Pupils (23 millimeters), Other (No withdrawal to painful stim; restraints in place) Exam Comments SCDs in place Assessment and Plan Diagnosis: (1) Assessment 1. Fall with traumatic brain injury currently intubated and sedated on vent 2. Seizure Plan 1. PT/ OT providing range of motion. Progress as medical and neurological status allows 2. Speech therapy for swallow evaluation when alert 3. SCDs in place for DVT prophylaxis 4. Will follow-up regarding ongoing rehabilitation needs while hospitalized and at discharge 5. Referral to [place] [facility] Thank you for this consult Ashley Zurita MD Oct 14, 2016 15:26
--- NOTE | 2016-10-14 22:58 | HHI.NSPN ---
History Chief Complaint: not verbalizing well Interval History 67-year-old male admitted 10/10/16 following a fall, inebriated, with CT scan revealing relatively small left frontal parenchymal hemorrhage. 10/11/16 patient required intubation with mechanical ventilation due to decreasing mental status, respiratory difficulty. Positive seizure activity witnessed at [facility]. 10/13/16: Remains intubated, sedated. No definite seizure activity reported Exam Results Vital Signs Date Time Temp Pulse Resp B/P Pulse Ox O2 Delivery O2 Flow Rate FiO2 10/14/16 18:00 120 10/14/16 16:30 40 10/14/16 16:18 94 10/14/16 16:00 99.5 30 166/79 10/12/16 07:00 Mechanical Ventilator 10/11/16 13:19 2.00 Intake and Output 10/13/16 10/13/16 10/13/16 07:59 15:59 23:59 Intake Total 1113 ml 825 ml 1789 ml Output Total 125 ml 200 ml 750 ml Balance 988 ml 625 ml 1039 ml Physical Examination Intubated and sedated. No eye opening to sternal rub. Pupils 2 mm nonreactive. Mild oculocephalic movements Mild grimacing deep pain No movement extremities to deep pain Not following commands Lab, Micro, Other Results Laboratory Tests Test 10/14/16 10/14/16 03:52 05:00 White Blood Count 12.4 TH/MM3 Red Blood Count 3.20 MIL/MM3 Hemoglobin 11.3 GM/DL Hematocrit 33.5 % Mean Corpuscular Volume 104.7 FL Mean Corpuscular Hemoglobin 35.4 PG Potassium Level 3.3 MEQ/L Chloride Level 110 MEQ/L Carbon Dioxide Level 19.3 MEQ/L Random Glucose 181 MG/DL Calcium Level 7.4 MG/DL Protein Corrected Calcium 8.2 MG/DL Total Protein 5.6 GM/DL Blood Gas HCO3 20 mmol/L Blood Gas Base Excess -3.5 mmol/L Arterial Blood pH 7.45 Arterial Blood Partial 30 mmHg Pressure CO2 Blood Gas Hemoglobin 11.2 G/DL Medical Decision Making Impression and Plan Impression: 1. Traumatic brain injury with mild increase in left primarily frontotemporal contusion and subarachnoid hemorrhage on CT scan of 10/12/16. No significant mass effect. Mild bilateral subdural hygromas. Moderate diffuse atrophy. Plan: Repeat CT scan head ordered for 10/15/16 Continuing close ISC neuro checks and vital signs. Continue Keppra and Dilantin Observe for further seizure activity Ventilatory support continuing per intensivists. Non-chemical DVT prophylaxis Ulcer prophylaxis Sourav Jerry MD Oct 14, 2016 22:58
[2016-10-14] MEDS: ACETAMINOPHEN 325 MG TAB PO PRN (23:56)
[2016-10-15] VITALS (20 sets, daily range): BP systolic 139–157; BP diastolic 71–86; PULSE 91–114; RESP 15–26; TEMP 99–101.7; O2SAT 94–97
[2016-10-15] MEDS: SODIUM CHLOR 0.9% 1000 ML INJ 1,000 ML IV SCH ×2 (01:54→15:30)
--- NOTE | 2016-10-15 04:42 | RADRPT ---
EXAM DATE/TIME: 10/15/2016 03:32 [place] COMPARISON: CHEST SINGLE AP, October 14, 2016, 4:37. INDICATIONS : Respiratory disease MEDICAL HISTORY : Unknown SURGICAL HISTORY : Unknown ENCOUNTER: Subsequent ACUITY: 4 - 6 days PAIN SCORE: Non-responsive. LOCATION: Bilateral chest FINDINGS: There is worsening consolidation of the bases, currently left worse than right. In at least small lef t pleural effusion is present. I don't see a pneumothorax. Heart size stable, upper limits of normal. Endotracheal tube tip is about 4 cm above the miguel a. There is a nasogastric tube coursing into the s tomach. CONCLUSION: Left greater than right basilar consolidation and left pleural effusion developing and/or worsening. Willian Reynaga MD on October 15, 2016 at 4:39 Board Certified Radiologist. This report was verified electronically.
[2016-10-15 04:45] LABS: HEMATOCRIT 32.6 % (39.0-51.0); MEAN CELL VOLUME 104.4 FL (80.0-100.0); MEAN CORPUSCULAR HEMOGLOBIN 35.9 PG (27.0-34.0); MEAN CORPUSCULAR HGB CONC 34.4 % (32.0-36.0); PLATELET COUNT 200 TH/MM3 (150-450); RED BLOOD COUNT 3.12 MIL/MM3 (4.50-5.90); RED CELL DISTRIBUTION WIDTH 15.2 % (11.6-17.2); REVIEW FLAG FINAL; WHITE BLOOD COUNT 15.1 TH/MM3 (4.0-11.0)
[2016-10-15] MEDS: PROPOFOL 1000 MG/100 ML INJ 100 ML IV SCH ×3 (04:55→17:54)
[2016-10-15 05:12] LABS: BICARBONATE 20.9 MEQ/L (21.0-32.0); MAGNESIUM 1.7 MG/DL (1.5-2.5); POTASSIUM 3.7 MEQ/L (3.5-5.1)
[2016-10-15] MEDS: hydrALAZINE HCL 20 MG/ML VIAL IV PUSH SCH ×4 (05:37→23:16)
[2016-10-15] MEDS: PHENYTOIN INJ 100 MG/2 ML VIAL IV SCH ×3 (05:37→22:34)
[2016-10-15 06:29] LABS: BLOOD GAS BASE EXCESS -2.2 mmol/L (-2-2); BLOOD GAS CARBOXYHEMOGLOBIN 1.2 % (0-4); BLOOD GAS HCO3 21 mmol/L (22-26); BLOOD GAS METHEMOGLOBIN 0.8 % (0-2); BLOOD GAS O2 HGB SATURATION 96 % (90-100); BLOOD GAS OXYGEN CONTENT 15.8 Vol % (12.0-20.0); BLOOD GAS PCO2 28 mmHg (38-42); BLOOD GAS PO2 90 mmHg (61-120); BLOOD GAS TOTAL HGB 11.7 G/DL (12.0-16.0); CRITICAL VALUE NO; FIO2 40 %; OXYGEN DEVICE VENTILATOR; TEMP CORR TO 98.6; VENT SETTINGS PRVC/AC
[2016-10-15 06:30] LABS: DRAW SITE RT RADIAL; NUMBER OF ARTERIAL PUNCTURES 2; STAT NO; ULNAR PULSE PRESENT
[2016-10-15] MEDS: RESP: ALBUTEROL 2.5 MG/IPRATROPIUM 0.5 MG NEB (SCH) NEB ×3 (08:00→19:58)
[2016-10-15] MEDS: SODIUM CHLORIDE 0.9% FLUSH 5 ML FLUSH IVF SCH ×2 (09:00→20:58)
[2016-10-15] MEDS: THIAMINE INJ 100 MG in SODIUM CHLORIDE 0.9% INJ 100 ML IV SCH (09:00)
[2016-10-15] MEDS: LISINOPRIL 20 MG TAB PO SCH ×2 (09:37→20:58)
[2016-10-15] MEDS: FUROSEMIDE 20 MG TAB PO SCH (09:37)
[2016-10-15] MEDS: DOCUSATE SODIUM 100 MG/10 ML UDC PO SCH ×2 (09:37→20:58)
[2016-10-15] MEDS: predniSONE 10 MG TAB PO SCH ×2 (09:37→20:58)
[2016-10-15] MEDS: POTASSIUM CHLORIDE 25 MEQ EFFERVESCENT TAB PO SCH (09:37)
[2016-10-15] MEDS: levETIRAcetam INJ 500 MG in SODIUM CHLORIDE 0.9% INJ 100 ML IV SCH ×2 (09:37→20:58)
[2016-10-15] MEDS: CHLORHEXIDINE 0.12% (ORAL KIT) 15 ML CUP MT SCH ×2 (09:39→20:58)
[2016-10-15] MEDS ORDERED: LACTULOSE SYRUP 20 GM/30 ML CUP PO ONE (10:15)
[2016-10-15] MEDS ORDERED: BISACODYL 10 MG SUPP RECTAL ONE (10:15)
[2016-10-15] MEDS ORDERED: Vancomycin Consult Pharmacy 1 EA OTHER SCH (10:15)
[2016-10-15] MEDS ORDERED: VANCOMYCIN INJ 750 MG in SODIUM CHLOR 0.9% 250 ML INJ 250 ML IV SCH (10:15)
--- NOTE | 2016-10-15 10:27 | HHI.PR ---
Neuropsych Progress Notes/Response to Tx Contents of Sessions: Interests, Level of Consciousness Time with Patient: 15 minutes Premorbid psychological status Essentially unknown. The patient does appear to have chronic substance dependence issues, given toxicology and neuroimaging results. Maximizing acute care outcome It is recommended that the patient be monitored for emergent behavioral impulsivity as the medical condition evolves. This patients neuropathological challenges may limit their rehabilitation potential going forward, in addition to premorbid psychosocial challenges, and these challenges will require specialized therapeutic skills to maximize outcome. Anticipated Problems Ongoing areas of concern will include behavioral impulsivity, lack of insight and judgment, which may or may not be expected to improve with time and treatment. This patient likely has an underlying major/minor neurocognitive disorder related to his substance dependence. Treatment Plan To be determined based on his ongoing pattern of recovery. Current [place] Level: I Diagnosis: (1) Cerebral cortex contusion Status: Acute Progress Note Narrative Patient seen in room. No consistent following of commands at this time. Will continue to follow and assess. Problem Qualifiers (1) Cerebral cortex contusion: Qualified Code: S06.2X9D - Cerebral cortex contusion, with loss of consciousness of unspecified duration, subsequent encounter Kareem Luther PhD Oct 15, 2016 10:27
[2016-10-15] MEDS ORDERED: PIPERACIL-TAZO 2.25 GM PREMIX 50 ML IV SCH (11:00)
[2016-10-15] MEDS: MULTIVITAMIN INJ 10 ML, THIAMINE INJ 100 MG, FOLIC ACID INJ 1 MG in SODIUM CHLORID 0.9%... IV SCH (11:14)
[2016-10-15] MEDS: VANCOMYCIN 1,000 MG/NS 250 ML IV SCH ×4 (11:14→23:16)
--- NOTE | 2016-10-15 13:41 | PD.CONS ---
History of Present Illness Service Infectious Disease Consult Requested By Dr Flores Reason for Consult Evaluate patient with (+) sputum C/S Primary Care Physician No Primary Care Physician Diagnoses: History of Present Illness Patient seen and examined. Records reviewed. Patient is a 65-year-old male admitted to the hospital as a trauma alert after falling at a bar. There was loss of consciousness. He was intoxicated when he was in the emergency room, and his alcohol level was 239. CT of the head showed left frontal hemorrhage. During neurosurgical evaluation, patient had a witnessed seizure episode. Patient had problems with excessive secretions in his airway, and ended up getting intubated. His initial chest x-ray was normal , but he is developed by basilar infiltrates worse on the left than on the right with the possibility of a left pleural effusion. He's had some fevers in the last 24 hours. His sputum culture has MSSA, and Haemophilus. Patient remains intubated. He has been off sedation, and not really following any commands. Infectious disease consultation has been requested to evaluate the patient. Review of Systems ROS Limitations: Clinical Condition, Intubated, Altered Mental Status Past Family Social History Allergies: Coded Allergies: UNOBTAINABLE (Unverified , 10/10/16) Past Medical History Not known Past Surgical History Not known Active Ordered Medications Tylenol Albuterol Colace Lasix Hydralazine Labetalol Keppra Prinivil Ativan MOM Magnesium Lopressor MVI Zofran Protonix Dilantin Zosyn Potassium IV vancomycin Prednisone Diprivan Thiamine Social History Positive alcohol use, came in intoxicated Physical Exam Vital Signs Vital Signs Date Time Temp Pulse Resp B/P Pulse Ox O2 Delivery O2 Flow Rate FiO2 10/15/16 12:00 40 10/15/16 12:00 92 10/15/16 12:00 99.7 92 24 144/71 95 10/15/16 11:12 97 40 10/15/16 10:00 105 10/15/16 08:47 94 40 10/15/16 08:00 40 10/15/16 08:00 95 10/15/16 08:00 99.7 98 22 151/82 94 10/15/16 06:00 91 10/15/16 04:00 40 10/15/16 04:00 97 10/15/16 04:00 99.9 97 26 139/75 96 10/15/16 03:48 95 40 10/15/16 02:00 97 10/15/16 00:48 95 40 10/15/16 00:00 40 10/15/16 00:00 107 10/15/16 00:00 101.7 107 25 157/74 95 10/14/16 22:50 95 40 10/14/16 22:00 116 10/14/16 20:30 95 40 10/14/16 20:00 40 10/14/16 20:00 100.4 118 25 174/88 94 10/14/16 20:00 118 10/14/16 18:00 120 10/14/16 16:30 40 10/14/16 16:18 94 40 10/14/16 16:00 40 10/14/16 16:00 122 10/14/16 16:00 99.5 122 30 166/79 94 10/14/16 14:00 121 Physical Exam GENERAL: This is a well-nourished, well-developed male, sedated and intubated, not in respiratory distress. His face and upper chest are plethoric SKIN: Warm and dry, no generalized rash or ecchymosis. He is plethoric in his face and upper chest. HEAD: Atraumatic. Normocephalic. No temporal or scalp tenderness. EYES: [place] conjunctivae, no petechia or hemorrhage. Pupils equal round and reactive. No scleral icterus. No injection or drainage. ENT: Nose without bleeding, or purulent drainage endotracheal tube is in the mouth. NECK: Trachea midline. No JVD or lymphadenopathy. Supple, no nuchal rigidity. CARDIOVASCULAR: Regular rate and rhythm without murmurs, gallops, or rubs. RESPIRATORY: Coarse breath sounds bilaterally. Some rhonchi heard on the right side. ABDOMEN: Soft, nondistended, no reaction to palpation. Bowel sounds are present and normoactive. No hepato-splenomegaly, or palpable masses. No guarding. MUSCULOSKELETAL: Extremities without clubbing, cyanosis, or edema in BLE. BUE has edema of hands. No joint effusion, or edema noted. NEUROLOGICAL: Sedated on the vent. No Babinski or ankle clonus. PSYCH: Unable to assess LINE: PIV with no evidence of infection : Chen in place, with clear urine Laboratory Laboratory Tests Test 10/15/16 10/15/16 04:00 06:02 White Blood Count 15.1 Red Blood Count 3.12 Hemoglobin 11.2 Hematocrit 32.6 Mean Corpuscular Volume 104.4 Mean Corpuscular Hemoglobin 35.9 Mean Corpuscular Hemoglobin 34.4 Concent Red Cell Distribution Width 15.2 Platelet Count 200 Mean Platelet Volume 8.2 Sodium Level 143 Potassium Level 3.7 Chloride Level 111 Carbon Dioxide Level 20.9 Anion Gap 11 Blood Urea Nitrogen 14 Creatinine 0.79 Estimat Glomerular Filtration 98 Rate Random Glucose 163 Calcium Level 7.6 Magnesium Level 1.7 Blood Gas Puncture Site RT RADIAL Blood Gas Patient Temperature 98.6 Blood Gas HCO3 21 Blood Gas Base Excess -2.2 Blood Gas Oxygen Saturation 96 Arterial Blood pH 7.49 Arterial Blood Partial 28 Pressure CO2 Arterial Blood Partial 90 Pressure O2 Arterial Blood Oxygen Content 15.8 Arterial Blood 1.2 Carboxyhemoglobin Arterial Blood Methemoglobin 0.8 Blood Gas Hemoglobin 11.7 Oxygen Delivery Device VENTILATOR Blood Gas Ventilator Setting PRVC/AC Blood Gas Inspired Oxygen 40 Date/Time Procedure Status Source Growth 10/12/16 12:15 Gram Stain - Final Complete Sputum Endotracheal 10/12/16 12:15 Sputum Culture - Final Complete Staphylococcus Aureus Haemophilus Influenzae Result Diagram: 10/15/16 0400 10/15/16 0400 Imaging RADIOLOGY STUDIES/FILMS REVIEWED Chest X-Ray 10/15/16599 Signed Impressions: Service Date/Time: Saturday, October 15, 2016 03:32 - CONCLUSION: Left greater than right basilar consolidation and left pleural effusion developing and/or worsening. Willian Reynaga MD Head CT 10/12/16599 Signed Impressions: Service Date/Time: Wednesday, October 12, 2016 05:17 - CONCLUSION: 1. Mild interval increase in the left subarachnoid hemorrhage and focal small area of parenchymal contusion. 2. Small low density subdural hygromas are now noted over the frontal and parietal convexities. Lucio Tyler MD Pelvis X-Ray 10/10/162204 Signed Impressions: Service Date/Time: Monday, October 10, 2016 21:49 - CONCLUSION: Satisfactory trauma pelvis appearance. Willian Tavares MD Cervical Spine CT 10/10/162204 Signed Impressions: Service Date/Time: Monday, October 10, 2016 22:08 - CONCLUSION: No acute bony injury in the cervical spine Willian Tavares MD Assessment and Plan Assessment and Plan IMPRESSION Pneumonia, likely aspiration - initial sputum with MSSA and Hemophilus Respiratory failure, on vent since 10/11 TBI due to fall - (+) ETOH Fevers, ?new infection RECOMMENDATION Continue Vancomycin Continue Zosyn but increase dose to PSAE dosing Repeat C/S: BC, UC and sputum Follow C/S Monitor temps Monitor progress I will determine course of Abx once work-up is completed I will follow along with you Thank you for this consultation Discussed Condition With D/W Silvana Ding MD Oct 15, 2016 13:41
[2016-10-15] MEDS ORDERED: RESP: ALBUTEROL 2.5 MG/IPRATROPIUM 0.5 MG NEB (PRN) NEB (16:00)
--- NOTE | 2016-10-15 16:03 | HHI.CCPN ---
Subjective Brief History This 64-year-old male was in a bar, fell backward from the standing or sitting position. He is brought as a priority 1 trauma alert because of the LOC, [place] coma scale was 10. Initial alcohol level was 237. The patient brought on a spinal board with C-collar in place. Patient underwent CT scan of the head which revealed left fronto parietal areas of hemorrhage and chronic encephalomalacia. Patient was initially placed in the ICU for observation, but then developed seizures. The CT of the brain has worsened and patient's inability to clear secretions lead to hypoxemia and tachypnea requiring intubation. The patient remains mechanically ventilated. PMHx: ETOH abuse, HTN, COPD. Cardiomegly INJURIES: LEFT fronto-temporal contusion, 2 cm. 24 Hour Review/Hospital Course 10/11/2016 No acute events overnight. Patient has remained lethargic. 10/12/16 Patient developed seizures and the repeat CAT scan revealed some more prominent the evolving hemorrhage of the left temporoparietal area commensurate with patient's decreased level of consciousness Inability to clear secretions in combination of decreased level of consciousness with seizures necessitates intubation and currently patient is intubated and ventilated Great care by Dr. Davis throughout the night 10/13/16 Patient remains on the ventilator No more seizures Pupils equal and reactive EEG was negative for repeated seizures 10/14/16 Patient doing well at this time No more seizures Sedation indication patient moves all 4 extremities however left weaker than the right which is consistent with right frontoparietal hemorrhage and contusion Once neurologic function is sufficiently improved and patient can maintain the airway, he will be weaned to extubate 10/15/2016 No seizure activity noted. Remains on Keppra and Dilantin. Pt with a positive sputum culture growing staph aureus and Haemophilus influenza. ID consulted. Continues with fevers. Copious respiratory secretions, preventing CPAP trial today. Added Levsin for his secretion control (Kiya Sinclair) Objective Vital Signs Date Time Temp Pulse Resp B/P Pulse Ox O2 Delivery O2 Flow Rate FiO2 10/15/16 14:00 114 10/15/16 13:58 95 40 10/15/16 12:00 99.7 24 144/71 10/12/16 07:00 Mechanical Ventilator 10/11/16 13:19 2.00 Intake and Output 10/14/16 10/14/16 10/14/16 07:59 15:59 23:59 Intake Total 1162 ml 1881 ml 1295 ml Output Total 250 ml 1700 ml 625 ml Balance 912 ml 181 ml 670 ml (Kiya Sinclair) Result Diagram: 10/15/16 0400 10/15/16 0400 Other Results Laboratory Tests Test 10/15/16 06:02 Blood Gas Puncture Site RT RADIAL Blood Gas Patient Temperature 98.6 Blood Gas HCO3 21 mmol/L (22-26) Blood Gas Base Excess -2.2 mmol/L (-2-2) Blood Gas Oxygen Saturation 96 % (90-100) Arterial Blood pH 7.49 (7.380-7.420) Arterial Blood Partial 28 mmHg (38-42) Pressure CO2 Arterial Blood Partial 90 mmHg Pressure O2 (61-120) Arterial Blood Oxygen Content 15.8 Vol % (12.0-20.0) Arterial Blood 1.2 % (0-4) Carboxyhemoglobin Arterial Blood Methemoglobin 0.8 % (0-2) Blood Gas Hemoglobin 11.7 G/DL (12.0-16.0) Oxygen Delivery Device VENTILATOR Blood Gas Ventilator Setting PRVC/AC Blood Gas Inspired Oxygen 40 % Imaging Last 24 hours Impressions Chest X-Ray 10/15/16 0600 Signed Impressions: Service Date/Time: Saturday, October 15, 2016 03:32 - CONCLUSION: Left greater than right basilar consolidation and left pleural effusion developing and/or worsening. Willian Reynaga MD Objective Remarks GENERAL: This is a 65-year-old male mechanically ventilated and sedated. SKIN: Warm and dry. HEAD: Atraumatic. Normocephalic. EYES: PERRLA ENT: No nasal bleeding or discharge. Mucous membranes pink and moist. NECK: Trachea midline. No JVD. CARDIOVASCULAR: Regular rate and rhythm. CM shows sinus tachycardia. HR = 100- 103. RESPIRATORY: No accessory muscle use. Lungs are clear to auscultation, however decreased in the left lower lobe. Breath sounds equal bilaterally. No distress or dyspnea. GASTROINTESTINAL: BS + x 4 quads. Abdomen soft, non-tender, slightly distended. MUSCULOSKELETAL: Extremities without cyanosis, or edema. + peripheral pulses x 4 extremities. Warm with good capillary refill and sensation. MAEW. NEUROLOGICAL: Sedated and mechanically ventilated. IV GTTs: Propofol IV invasive lines: ETT 10/11 OGT 10/11 murphy 10/10 (Kiya Sinclair) Urinary Catheter Assessment Urinary Catheter: Yes Assessment to: Continue Murphy insert reason: Measure Accurate Output Date of Insertion: Oct 10, 2016 (Kiya Sinclair) Assessment and Plan Plan [place]: Patient fell backwards at a bar. +LOC. + ETOH = 237, GCS 14 on arrival ASSESSMENT AND PLAN: NEUROLOGICAL: Patient sedated with Diprivan and and mechanically ventilated. Pt sedated with a RASS score of -2. Provide anesthesia for comfort and pain. ETOH level 239 on admission. Monitor for ETOH withdrawal. Ativan when necessary. Neuro checks q 2 hours. Monitor for seizures. Placed on Keppra and Dilantin. HOB elevated 30 degrees Neurosurgery consulted. CARDIOVASCULAR: HR = sinus tachycardia JW=[id number]. BP 165/85 PO Lisinopril. Labetalol IV, and Hydralazine IV ordered PRN. IVF: NS decreased to 40 cc/H. Daily Lasix 20 mg (with Potassium 20 MEQ daily) Continually monitor for hemodynamic instability (shock and hypotension) Follow [facility] Electrolyte protocol in place for daily replacement if needed. RESPIRATORY: [place] settings: PRVC/AC 500 / 14 / 40% / 1.0 / +5. PF ratio = 225. Mild ARDS. Increased PEEP carefully to assist in oxygenation by recruiting alveoli. O2 Sats Monitor for hypoxemia Increased respiratory secretions. Pulmonary toilet L&S as needed. Levsin added. Bronchodilators - Duonebs q 6 hrs scheduled / q 2 PRN. Lungs are CTA, slightly decreased in LEFT lower lung. Sputum culture from 09/12 - positive for staph aureus and Haemophilus influenza. - Zosyn and Vanco started. Infectious disease consulted for assistance with management. GASTROINTESTINAL: Diet TF Jevity at goal with no residuals. Bowel regimen Colace, MOM. Abdomen distended - added additional lactulose plus bisacodyl suppository daily. BM x 1. RENAL / URINARY: I&O + 1988 BUN / creat 14 / 0.[address] to bedside drainage bag. ENDOCRINE: BGM WNL HEMATOLOGY: H&H 13.4/38.3 PLT 220 Continue to monitor for signs and symptoms of bleeding Transfuse for < 7.0 INFECTIOUS DISEASE: Follow CBC WBC - 15.1 Tmax - 101.7 Administer antipyretics for temp as needed. Sputum culture on 10/12 - positive for staph aureus and Haemophilus influenza. Zosyn and Vanco started and ID consulted. Follow chest x-rays. Maintain vigorous aseptic care of IVs to avoid blood stream infection. Lines: PIV's. PROPHYLAXIS: GI Protonix IV. DVT - mechanical VTE with SCD's. Chemical prophylaxis contraindicated at this time due to subarachnoid hemorrhage and parenchymal contusion. SKIN: Warm / Dry Specialty bed ordered. ACTIVITY: Status - BR PT and OT evaluating. CASE MANAGEMENT: Consulted for assist with DC planning. Placement - disposition. EMOTIONAL SUPPORT: No family at bedside. Discussed with RN at bedside. Pt remains critically ill and injured in the ICU. Trauma surgery will round and evaluate patient and treatment plan on a daily basis. (Kiya Sinclair) Attestation Patient's neurologic recovery is very slow Patient will need tracheostomy in order to come off the ventilator in face of decreased level of consciousness and inability to keep up her airway The exam, history, and the medical decision-making described in the above note were completed with the assistance of the mid-level provider. I reviewed and agree with the findings presented. I attest that I had a [id number] encounter with the patient on the same day, and personally performed and documented my assessment and findings in the medical record. Critical care time 40 minutes. (Jak Flores MD) Kiya Sinclair Oct 15, 2016 16:03 Jak Flores MD Oct 18, 2016 11:58
[2016-10-15] MEDS: PIPERACIL-TAZO 4.5 GM PREMIX 100 ML IV SCH ×2 (16:12→23:17)
[2016-10-15] MEDS: HYOSCYAMINE 0.125 MG TAB PO PRN (17:44)
[2016-10-15 21:31] LABS: BACTERIA, URINE RARE /hpf; BLOOD, URINE NEG (NEG); COMMENT (UR) CULT NOT INDICATED; CULTURE IF INDICATED CULT NOT INDICATED; GLUCOSE,URINE 150 mg/dL (NEG); KETONE, URINE NEG (NEG); MUCUS URINE FEW /lpf (OCC); NITRITE,URINE NEG (NEG); PH, URINE 5.5 (5.0-8.5); URINE COLOR YELLOW (YELLW/STRAW)
--- NOTE | 2016-10-15 21:53 | HHI.NSPN ---
History Chief Complaint: not verbalizing well Interval History 67-year-old male admitted 10/10/16 following a fall, inebriated, with CT scan revealing relatively small left frontal parenchymal hemorrhage. 10/11/16 patient required intubation with mechanical ventilation due to decreasing mental status, respiratory difficulty. Positive seizure activity witnessed at [facility]. 10/13/16: Remains intubated, sedated. No definite seizure activity reported 10/15/16: Remains intubated and sedated. Exam Results Vital Signs Date Time Temp Pulse Resp B/P Pulse Ox O2 Delivery O2 Flow Rate FiO2 10/15/16 20:00 40 10/15/16 20:00 108 10/15/16 20:00 99.3 15 150/72 96 10/12/16 07:00 Mechanical Ventilator 10/11/16 13:19 2.00 Intake and Output 10/14/16 10/14/16 10/14/16 07:59 15:59 23:59 Intake Total 1162 ml 1881 ml 1295 ml Output Total 250 ml 1700 ml 625 ml Balance 912 ml 181 ml 670 ml Physical Examination Intubated and sedated. No eye opening to sternal rub. Pupils 2 -3 mm nonreactive. Mild oculocephalic movements Mild grimacing deep pain No movement extremities to deep pain Not following commands Lab, Micro, Other Results Laboratory Tests Test 10/15/16 10/15/16 10/15/16 04:00 06:02 14:00 White Blood Count 15.1 TH/MM3 Red Blood Count 3.12 MIL/MM3 Hemoglobin 11.2 GM/DL Hematocrit 32.6 % Mean Corpuscular Volume 104.4 FL Mean Corpuscular Hemoglobin 35.9 PG Mean Corpuscular Hemoglobin 34.4 % Concent Red Cell Distribution Width 15.2 % Platelet Count 200 TH/MM3 Mean Platelet Volume 8.2 FL Sodium Level 143 MEQ/L Potassium Level 3.7 MEQ/L Chloride Level 111 MEQ/L Carbon Dioxide Level 20.9 MEQ/L Anion Gap 11 MEQ/L Blood Urea Nitrogen 14 MG/DL Creatinine 0.79 MG/DL Estimat Glomerular Filtration 98 ML/MIN Rate Random Glucose 163 MG/DL Calcium Level 7.6 MG/DL Magnesium Level 1.7 MG/DL Blood Gas Puncture Site RT RADIAL Blood Gas Patient Temperature 98.6 Blood Gas HCO3 21 mmol/L Blood Gas Base Excess -2.2 mmol/L Blood Gas Oxygen Saturation 96 % Arterial Blood pH 7.49 Arterial Blood Partial 28 mmHg Pressure CO2 Arterial Blood Partial 90 mmHg Pressure O2 Arterial Blood Oxygen Content 15.8 Vol % Arterial Blood 1.2 % Carboxyhemoglobin Arterial Blood Methemoglobin 0.8 % Blood Gas Hemoglobin 11.7 G/DL Oxygen Delivery Device VENTILATOR Blood Gas Ventilator Setting PRVC/AC Blood Gas Inspired Oxygen 40 % Urine Color YELLOW Urine Turbidity HAZY Urine pH 5.5 Urine Specific [place] 1.016 Urine Protein NEG mg/dL Urine Glucose (UA) 150 mg/dL Urine Ketones NEG mg/dL Urine Occult Blood NEG Urine Nitrite NEG Urine Bilirubin NEG Urine Urobilinogen LESS THAN 2.0 MG/DL Urine Leukocyte Esterase NEG Urine RBC 6 /hpf Urine WBC 2 /hpf Urine Bacteria RARE /hpf Urine Mucus FEW /lpf Microscopic Urinalysis Comment CULT NOT INDICATED Last 24 hours Impressions Chest X-Ray 10/15/16 0600 Signed Impressions: Service Date/Time: Saturday, October 15, 2016 03:32 - CONCLUSION: Left greater than right basilar consolidation and left pleural effusion developing and/or worsening. Willian Reynaga MD Medical Decision Making Impression and Plan Impression: 1. Traumatic brain injury with mild increase in left primarily frontotemporal contusion and subarachnoid hemorrhage on CT scan of 10/12/16. No significant mass effect. Mild bilateral subdural hygromas. Moderate diffuse atrophy. Plan: Repeat CT scan head ordered for 10/16/16 Continuing close ISC neuro checks and vital signs. Continue Keppra and Dilantin. Recheck Dilantin level Observe for further seizure activity Ventilatory support continuing per intensivists. Non-chemical DVT prophylaxis Sourav Jerry MD Oct 15, 2016 21:53
[2016-10-15] MEDS: PANTOPRAZOLE SODIUM 40 MG VIAL IV SCH (23:16)
[2016-10-16] VITALS (17 sets, daily range): BP systolic 122–178; BP diastolic 61–92; PULSE 82–114; RESP 16–27; TEMP 98–99.3; O2SAT 95–100
[2016-10-16] MEDS: HYOSCYAMINE 0.125 MG TAB PO PRN ×2 (01:34→02:23)
[2016-10-16] MEDS: RESP: ALBUTEROL 2.5 MG/IPRATROPIUM 0.5 MG NEB (SCH) NEB ×4 (03:16→20:00)
[2016-10-16 04:16] LABS: HEMATOCRIT 29.9 % (39.0-51.0); MEAN CELL VOLUME 104.8 FL (80.0-100.0); MEAN CORPUSCULAR HEMOGLOBIN 35.4 PG (27.0-34.0); MEAN CORPUSCULAR HGB CONC 33.7 % (32.0-36.0); PLATELET COUNT 213 TH/MM3 (150-450); RED BLOOD COUNT 2.85 MIL/MM3 (4.50-5.90); REVIEW FLAG FINAL; WHITE BLOOD COUNT 13.4 TH/MM3 (4.0-11.0)
[2016-10-16] MEDS: hydrALAZINE HCL 20 MG/ML VIAL IV PUSH SCH ×4 (04:22→23:18)
[2016-10-16] MEDS: PROPOFOL 1000 MG/100 ML INJ 100 ML IV SCH ×2 (04:23→20:26)
[2016-10-16 04:42] LABS: MAGNESIUM 1.9 MG/DL (1.5-2.5); POTASSIUM 3.6 MEQ/L (3.5-5.1)
--- NOTE | 2016-10-16 05:33 | RADRPT ---
EXAM DATE/TIME: 10/16/2016 04:59 [facility] COMPARISON: CT BRAIN W/O CONTRAST, October 12, 2016, 5:17. INDICATIONS : Follow up intracerebral hemorrhage. RADIATION DOSE: 47.40 CTDIvol (mGy) MEDICAL HISTORY : None SURGICAL HISTORY : None. ENCOUNTER: Subsequent ACUITY: 4 - 6 days PAIN SCALE: Non-responsive LOCATION: cranial TECHNIQUE: Multiple contiguous axial images were obtained of the head. Using automated exposure control and adj ustment of the mA and/or kV according to patient size, radiation dose was kept as low as reasonably a chievable to obtain optimal diagnostic quality images. FINDINGS: Subacute, subcortical predominant parenchymal hemorrhage again seen of the left frontal, parietal and temporal lobes, not significantly changed. There is increased low attenuation fluid in the left subd ural space, currently measuring about 8 mm in greatest axial dimension. This is associated with about 5 mm of rightward midline shift which is new. The right subdural fluid is not significantly changed, measures about 3 mm in maximal thickness. No mass demonstrated. No evidence of an acute ischemic event. Mucoperiosteal thickening and fluid again seen of the paranasal sinuses, most severe of the left sphenoid. CONCLUSION: 1. Increased subdural hematoma/cystic hygroma on the left and with associated 5 mm of rightward midli ne shift now present. Right subdural collection unchanged. 2. Left frontal, parietal and temporal lobe parenchymal hemorrhage not significantly changed. 3. Sinus disease again noted. Willian Reynaga MD on October 16, 2016 at 5:28 Board Certified Radiologist. This report was verified electronically.
[2016-10-16 05:38] LABS: BLOOD GAS BASE EXCESS -1.1 mmol/L (-2-2); BLOOD GAS CARBOXYHEMOGLOBIN 1.2 % (0-4); BLOOD GAS HCO3 23 mmol/L (22-26); BLOOD GAS METHEMOGLOBIN 0.7 % (0-2); BLOOD GAS O2 HGB SATURATION 96 % (90-100); BLOOD GAS OXYGEN CONTENT 14.4 Vol % (12.0-20.0); BLOOD GAS PCO2 34 mmHg (38-42); BLOOD GAS PO2 97 mmHg (61-120); BLOOD GAS TOTAL HGB 10.6 G/DL (12.0-16.0); CRITICAL VALUE NO; DRAW SITE RT RADIAL; FIO2 40 %; NUMBER OF ARTERIAL PUNCTURES 1; OXYGEN DEVICE VENTILATOR; STAT NO; TEMP CORR TO 98.6; ULNAR PULSE PRESENT; VENT SETTINGS PRVC14/500/PEEP5/1.0
[2016-10-16] MEDS: PHENYTOIN INJ 100 MG/2 ML VIAL IV SCH ×3 (05:48→20:36)
[2016-10-16] MEDS: PIPERACIL-TAZO 4.5 GM PREMIX 100 ML IV SCH ×3 (05:48→16:48)
--- NOTE | 2016-10-16 06:37 | RADRPT ---
EXAM DATE/TIME: 10/16/2016 05:27 [facility] COMPARISON: CHEST SINGLE AP, October 15, 2016, 3:32. INDICATIONS : Shortness of breath MEDICAL HISTORY : Unobtainable SURGICAL HISTORY : Unobtainable ENCOUNTER: Subsequent ACUITY: 4 - 6 days PAIN SCORE: 10/10 LOCATION: Bilateral chest FINDINGS: Bibasilar consolidation and small effusions again noted, not significantly changed. No pneumothorax. Mild cardiomegaly is stable. Endotracheal tube tip is about 2 cm above the miguel a. There is a nasogastric tube coursing into the s tomach. CONCLUSION: No significant change. Willian Reynaga MD on October 16, 2016 at 6:35 Board Certified Radiologist. This report was verified electronically.
[2016-10-16] MEDS: POTASSIUM CHLORIDE 25 MEQ EFFERVESCENT TAB PO SCH (09:14)
[2016-10-16] MEDS: DOCUSATE SODIUM 100 MG/10 ML UDC PO SCH ×2 (09:14→20:35)
[2016-10-16] MEDS: predniSONE 10 MG TAB PO SCH ×2 (09:15→20:36)
[2016-10-16] MEDS: FUROSEMIDE 20 MG TAB PO SCH (09:15)
[2016-10-16] MEDS: LISINOPRIL 20 MG TAB PO SCH ×2 (09:15→20:36)
[2016-10-16] MEDS: levETIRAcetam INJ 500 MG in SODIUM CHLORIDE 0.9% INJ 100 ML IV SCH ×2 (09:15→20:35)
[2016-10-16] MEDS: THIAMINE INJ 100 MG in SODIUM CHLORIDE 0.9% INJ 100 ML IV SCH (09:16)
[2016-10-16] MEDS: CHLORHEXIDINE 0.12% (ORAL KIT) 15 ML CUP MT SCH ×2 (09:16→20:24)
[2016-10-16] MEDS: SODIUM CHLORIDE 0.9% FLUSH 5 ML FLUSH IVF SCH ×2 (09:16→20:26)
[2016-10-16] MEDS ORDERED: MISC INFORMATION OTHER ONE (09:45)
--- NOTE | 2016-10-16 10:49 | HHI.CCPN ---
Subjective Brief History This 64-year-old male was in a bar, fell backward from the standing or sitting position. He is brought as a priority 1 trauma alert because of the LOC, [place] coma scale was 10. Initial alcohol level was 237. The patient brought on a spinal board with C-collar in place. Patient underwent CT scan of the head which revealed left fronto parietal areas of hemorrhage and chronic encephalomalacia. Patient was initially placed in the ICU for observation, but then developed seizures. The CT of the brain has worsened and patient's inability to clear secretions lead to hypoxemia and tachypnea requiring intubation. The patient remains mechanically ventilated. PMHx: ETOH abuse, HTN, COPD. Cardiomegly INJURIES: LEFT fronto-temporal contusion, 2 cm. 24 Hour Review/Hospital Course 10/11/2016 No acute events overnight. Patient has remained lethargic. 10/12/16 Patient developed seizures and the repeat CAT scan revealed some more prominent the evolving hemorrhage of the left temporoparietal area commensurate with patient's decreased level of consciousness Inability to clear secretions in combination of decreased level of consciousness with seizures necessitates intubation and currently patient is intubated and ventilated Great care by Dr. Davis throughout the night 10/13/16 Patient remains on the ventilator No more seizures Pupils equal and reactive EEG was negative for repeated seizures 10/14/16 Patient doing well at this time No more seizures Sedation indication patient moves all 4 extremities however left weaker than the right which is consistent with right frontoparietal hemorrhage and contusion Once neurologic function is sufficiently improved and patient can maintain the airway, he will be weaned to extubate 10/15/2016 No seizure activity noted. Remains on Keppra and Dilantin. Pt with a positive sputum culture growing staph aureus and Haemophilus influenza. ID consulted. Continues with fevers. Copious respiratory secretions, preventing CPAP trial today. Added Levsin for his secretion control 10/16/2016 CT of the head today displays increased SDH on the LEFT. We'll plan for trach placement tomorrow, in light of increasing subdural hematoma status, and increasing respiratory secretions. (Kiya Sinclair) Objective Vital Signs Date Time Temp Pulse Resp B/P Pulse Ox O2 Delivery O2 Flow Rate FiO2 10/16/16 10:24 96 40 10/16/16 06:00 106 10/16/16 04:00 98.8 20 134/61 10/12/16 07:00 Mechanical Ventilator Intake and Output 10/15/16 10/15/16 10/16/16 08:00 16:00 00:00 Intake Total 1438 ml 1647 ml 1240 ml Output Total 300 ml 850 ml 500 ml Balance 1138 ml 797 ml 740 ml (Kiya Sinclair [employer]) Result Diagram: 10/16/16 0343 10/16/16 0343 Other Results Laboratory Tests Test 10/16/16 05:28 Blood Gas Puncture Site RT RADIAL Blood Gas Patient Temperature 98.6 Blood Gas HCO3 23 mmol/L (22-26) Blood Gas Base Excess -1.1 mmol/L (-2-2) Blood Gas Oxygen Saturation 96 % (90-100) Arterial Blood pH 7.44 (7.380-7.420) Arterial Blood Partial 34 mmHg (38-42) Pressure CO2 Arterial Blood Partial 97 mmHg Pressure O2 (61-120) Arterial Blood Oxygen Content 14.4 Vol % (12.0-20.0) Arterial Blood 1.2 % (0-4) Carboxyhemoglobin Arterial Blood Methemoglobin 0.7 % (0-2) Blood Gas Hemoglobin 10.6 G/DL (12.0-16.0) Oxygen Delivery Device VENTILATOR Blood Gas Ventilator Setting PRVC14/500/PEEP5/1.0 Blood Gas Inspired Oxygen 40 % Imaging Last [address] 10/16/16 06 Signed Impressions: Service Date/Time: September 04:59 - CONCLUSION: 1. Increased subdural hematoma/cystic hygroma on the left and with associated 5 mm of rightward midline shift now present. Right subdural collection unchanged. 2. Left frontal, parietal and temporal lobe parenchymal hemorrhage not significantly changed. 3. Sinus disease again noted. Willian Reynaga MD Chest X-Ray 10/16/16 06 Signed Impressions: Service Date/Time: September 05:27 - CONCLUSION: No significant change. Willian Reynaga MD Objective Remarks GENERAL: This is a 65-year-old male mechanically ventilated and sedated. SKIN: Warm and dry. HEAD: Atraumatic. Normocephalic. EYES: PERRLA ENT: No nasal bleeding or discharge. Mucous membranes pink and moist. NECK: Trachea midline. No JVD. CARDIOVASCULAR: Regular rate and rhythm. CM shows sinus tachycardia. HR = 100- 103. RESPIRATORY: No accessory muscle use. Lungs are clear to auscultation, however decreased in the left lower lobe with slight inspiratory squeak noted left lower lobe . Breath sounds equal bilaterally. No distress or dyspnea. GASTROINTESTINAL: BS + x 4 quads. Abdomen soft, non-tender, slightly distended. MUSCULOSKELETAL: Extremities without cyanosis, or edema. + peripheral pulses x 4 extremities. Warm with good capillary refill and sensation. MAEW. NEUROLOGICAL: Sedated and mechanically ventilated. IV GTTs: Propofol IV invasive lines: ETT 10/11 OGT 10/11 murphy 10/10 (Kiya Sinclair) Urinary Catheter Assessment Urinary Catheter: Yes Assessment to: Continue Date of Insertion: Oct 10, 2016 (Kiya Sinclair) Assessment and Plan Plan [place]: Patient fell backwards at a bar. +LOC. + ETOH = 237, GCS 14 on arrival. Patient sustained a subdural hematoma and due to the development of seizure activity, he was intubated and mechanically ventilated. INJURIES: LEFT fronto-temporal contusion, 2 cm. ASSESSMENT AND PLAN: NEUROLOGICAL: Patient sedated with Diprivan and and mechanically ventilated. Pt sedated with a RASS score of -2. Provide anesthesia for comfort and pain. ETOH level 239 on admission. Monitor for ETOH withdrawal. Ativan when necessary. Neuro checks q 2 hours. Monitor for seizures. Placed on Keppra and Dilantin. HOB elevated 30 degrees Neurosurgery consulted. CARDIOVASCULAR: HR = sinus rhythm to sinus tachycardia HR=94-102. BP 122/63 PO Lisinopril. Labetalol IV, and Hydralazine IV ordered PRN. IVF: NS decreased to 40 cc/H. Daily Lasix 20 mg (with Potassium 20 MEQ daily) Continually monitor for hemodynamic instability (shock and hypotension) Follow [facility] Electrolyte protocol in place for daily replacement if needed. RESPIRATORY: Venet settings: PRVC/AC 500 / 14 / 40% / 1.0 / +5. PF ratio = 225. Mild ARDS. Increase PEEP carefully to assist in oxygenation by recruiting alveoli. O2 Sats Monitor for hypoxemia Increased respiratory secretions. Pulmonary toilet L&S as needed. Levsin added. We will plan for trach placement tomorrow at the bedside. Bronchodilators - Duonebs q 6 hrs scheduled / q 2 PRN. Lungs are CTA, slightly decreased in LEFT lower lung. Sputum culture from 09/12 - positive for staph aureus and Haemophilus influenza. - Zosyn and Vanco started. Infectious disease is consulted for assistance with management. GASTROINTESTINAL: Diet TF Jevity at goal with no residuals. Bowel regimen Colace, MOM. 10/15 BM x 1. Consult GI for plan for PEG placement. RENAL / URINARY: I&O + 8 BUN / creat 17 / 0.[address] to bedside drainage bag. ENDOCRINE: BGM WNL HEMATOLOGY: H&H 10.1 / 29.9 PLT 213 Continue to monitor for signs and symptoms of bleeding Transfuse for < 7.0 INFECTIOUS DISEASE: Follow CBC WBC - 13.4 Afebrile Administer antipyretics for temp as needed. Sputum culture on 10/12 - positive for staph aureus and Haemophilus influenza. Zosyn and Vanco started and ID consulted. Follow chest x-rays. Maintain vigorous aseptic care of IVs to avoid blood stream infection. Lines: PIV's. PROPHYLAXIS: GI Protonix IV. DVT - mechanical VTE with SCD's. Chemical prophylaxis contraindicated at this time due to increasing subarachnoid hemorrhage and parenchymal contusion. SKIN: Warm / Dry Specialty bed ordered. ACTIVITY: Status - BR PT and OT evaluating. CASE MANAGEMENT: Consulted for assist with DC planning. Placement - disposition. EMOTIONAL SUPPORT: No family at bedside to discuss plan of care. Discussed with RN at bedside. Pt remains critically ill and injured in the ICU. Trauma surgery will round and evaluate patient and treatment plan on a daily basis. (Kiya Sinclair) Attestation Patient improving neurologically very slowly Will schedule for tracheostomy tomorrow for I do not see any way to separate this patient from the ventilator safely without it Considering there is no family he'll be medically necessary procedure to ensure patient's standard of care and well being The exam, history, and the medical decision-making described in the above note were completed with the assistance of the mid-level provider. I reviewed and agree with the findings presented. I attest that I had a [id number] encounter with the patient on the same day, and personally performed and documented my assessment and findings in the medical record. Critical care time 35 minutes. (Jak Flores MD) Kiya Sinclair Oct 16, 2016 10:49 Jak Flores MD Oct 18, 2016 12:12
[2016-10-16] MEDS: VANCOMYCIN 1,000 MG/NS 250 ML IV SCH ×4 (11:59→23:17)
--- NOTE | 2016-10-16 12:24 | HHI.PR ---
Neuropsych Progress Notes/Response to Tx Contents of Sessions: Level of Consciousness Premorbid psychological status Essentially unknown. The patient does appear to have chronic substance dependence issues, given toxicology and neuroimaging results. Maximizing acute care outcome It is recommended that the patient be monitored for emergent behavioral impulsivity as the medical condition evolves. This patients neuropathological challenges may limit their rehabilitation potential going forward, in addition to premorbid psychosocial challenges, and these challenges will require specialized therapeutic skills to maximize outcome. Anticipated Problems Ongoing areas of concern will include behavioral impulsivity, lack of insight and judgment, which may or may not be expected to improve with time and treatment. This patient likely has an underlying major/minor neurocognitive disorder related to his substance dependence. Treatment Plan To be determined based on his ongoing pattern of recovery. Current [place] Level: I Diagnosis: (1) Cerebral cortex contusion Status: Acute Progress Note Narrative Patient reportedly is following one-step commands albeit inconsistently. I was unable to awaken him during my visit. It is understood that there has been evolution of his neuropathology since last visit. I will continue to follow with you. Problem Qualifiers (1) Cerebral cortex contusion: Qualified Code: S06.2X9D - Cerebral cortex contusion, with loss of consciousness of unspecified duration, subsequent encounter Kareem Luther PhD Oct 16, 2016 12:24
--- NOTE | 2016-10-16 12:49 | HHI.IDPN ---
Subjective Subjective Remarks Notes reviewed Temps better On the vent, sedated CT with increased SDH Antibiotics Zosyn Vancomycin Lines PIV Past Medical History Not known Allergies: Coded Allergies: UNOBTAINABLE (Unverified , 10/10/16) Objective . Vital Signs Date Time Temp Pulse Resp B/P Pulse Ox O2 Delivery O2 Flow Rate FiO2 10/16/16 10:24 96 40 10/16/16 10:00 102 10/16/16 08:23 96 40 10/16/16 08:00 40 10/16/16 08:00 98.4 102 20 152/79 95 10/16/16 08:00 82 10/16/16 06:00 106 10/16/16 05:12 100 100 10/16/16 04:08 96 40 10/16/16 04:00 104 10/16/16 04:00 40 10/16/16 04:00 98.8 114 20 134/61 95 10/16/16 02:00 104 10/16/16 01:11 95 40 10/16/16 00:00 99.3 113 22 149/71 95 10/16/16 00:00 40 10/16/16 00:00 113 10/15/16 22:14 95 40 10/15/16 22:00 99 10/15/16 20:00 40 10/15/16 20:00 108 10/15/16 20:00 99.3 108 15 150/72 96 10/15/16 19:53 95 40 10/15/16 18:00 102 10/15/16 17:37 96 40 10/15/16 16:00 99.0 98 22 150/86 96 10/15/16 16:00 40 10/15/16 16:00 96 10/15/16 14:00 114 10/15/16 13:58 95 40 10/15/16 10/15/16 10/16/16 15:00 23:00 07:00 Intake Total 1647 ml 1240 ml 1131 ml Output Total 850 ml 500 ml 600 ml Balance 797 ml 740 ml 531 ml IV Total 1214 ml 840 ml 833 ml Tube Feeding 433 ml 400 ml 298 ml Output Urine Total 850 ml 500 ml 600 ml # Bowel Movements 0 0 0 . Laboratory Tests Test 10/15/16 10/16/16 04:00 03:43 White Blood Count 15.1 TH/MM3 13.4 TH/MM3 Red Blood Count 3.12 MIL/MM3 2.85 MIL/MM3 Hemoglobin 11.2 GM/DL 10.1 GM/DL Hematocrit 32.6 % 29.9 % Mean Corpuscular Volume 104.4 FL 104.8 FL Mean Corpuscular Hemoglobin 35.9 PG 35.4 PG Mean Corpuscular Hemoglobin 34.4 % 33.7 % Concent Red Cell Distribution Width 15.2 % 15.0 % Platelet Count 200 TH/MM3 213 TH/MM3 Mean Platelet Volume 8.2 FL 7.9 FL Laboratory Tests Test 10/15/16 10/16/16 04:00 03:43 Sodium Level 143 MEQ/L 142 MEQ/L Potassium Level 3.7 MEQ/L 3.6 MEQ/L Chloride Level 111 MEQ/L 109 MEQ/L Carbon Dioxide Level 20.9 MEQ/L 22.0 MEQ/L Anion Gap 11 MEQ/L 11 MEQ/L Blood Urea Nitrogen 14 MG/DL 17 MG/DL Creatinine 0.79 MG/DL 0.74 MG/DL Estimat Glomerular Filtration 98 ML/MIN 106 ML/MIN Rate Random Glucose 163 MG/DL 154 MG/DL Calcium Level 7.6 MG/DL 7.6 MG/DL Magnesium Level 1.7 MG/DL 1.9 MG/DL Microbiology Date/Time Procedure Status Source Growth 10/15/16 14:47 Aerobic Blood Culture - Preliminary Resulted Blood Peripheral NO GROWTH IN 1 DAY 10/15/16 14:47 Anaerobic Blood Culture - Preliminary Resulted Blood Peripheral NO GROWTH IN 1 DAY 10/15/16 15:15 Aerobic Blood Culture - Preliminary Resulted Blood Peripheral NO GROWTH IN 1 DAY 10/15/16 15:15 Anaerobic Blood Culture - Preliminary Resulted Blood Peripheral NO GROWTH IN [address] 10/16/16 0600 Signed Impressions: Service Date/Time: September 04:59 - CONCLUSION: 1. Increased subdural hematoma/cystic hygroma on the left and with associated 5 mm of rightward midline shift now present. Right subdural collection unchanged. 2. Left frontal, parietal and temporal lobe parenchymal hemorrhage not significantly changed. 3. Sinus disease again noted. Willian Reynaga MD Chest X-Ray 10/16/16 0600 Signed Impressions: Service Date/Time: September 05:27 - CONCLUSION: No significant change. Willian Reynaga MD Pelvis X-Ray 10/10/162204 Signed Impressions: Service Date/Time: Monday, October 10, 2016 21:49 - CONCLUSION: Satisfactory trauma pelvis appearance. Willian Tavares MD Cervical Spine CT 10/10/162204 Signed Impressions: Service Date/Time: Monday, October 10, 2016 22:08 - CONCLUSION: No acute bony injury in the cervical spine Willian Tavares MD Physical Exam GENERAL: sedated and intubated, not in respiratory distress. SKIN: Warm and dry, no generalized rash or ecchymosis. HEENT: [place] conjunctivae, no petechia or hemorrhage. No scleral icterus. No injection or drainage. Nose without bleeding, or purulent drainage. Endotracheal tube is in the mouth. NECK: Trachea midline. No JVD or lymphadenopathy. Supple, no nuchal rigidity. CARDIOVASCULAR: Regular rate and rhythm without murmurs, gallops, or rubs. RESPIRATORY: Coarse breath sounds bilaterally. Some rhonchi heard on the right side. ABDOMEN: Soft, distended, no reaction to palpation. Bowel sounds are present and normoactive. No hepato-splenomegaly, or palpable masses. No guarding. MUSCULOSKELETAL: Extremities without clubbing, cyanosis, or edema in BLE. BUE has edema of hands. No joint effusion, or edema noted. NEUROLOGICAL: Sedated on the vent. No Babinski or ankle clonus. PSYCH: Unable to assess LINE: PIV with no evidence of infection : Chen in place, with clear urine Assessment & Plan Remarks IMPRESSION Pneumonia, likely aspiration - initial sputum with MSSA and Hemophilus Respiratory failure, on vent since 10/11 TBI due to fall - (+) ETOH Fevers, ?new infection - temps better Leukocytosis, stable RECOMMENDATION Continue Vancomycin Continue Zosyn but increase dose to PSAE dosing Follow C/S Monitor temps Monitor progress Silvana Antony MD Oct 16, 2016 12:49
[2016-10-16] MEDS: PANTOPRAZOLE SODIUM 40 MG VIAL IV SCH (23:17)
[2016-10-16] MEDS ORDERED: PHARMACY ORDERED LAB XX ONE (23:45)
[2016-10-17] VITALS (14 sets, daily range): BP systolic 116–159; BP diastolic 58–77; PULSE 92–112; RESP 14–22; TEMP 98.1–99.5; O2SAT 92–100
[2016-10-17] MEDS: PROPOFOL 1000 MG/100 ML INJ 100 ML IV SCH ×5 (00:14→20:16)
[2016-10-17] MEDS: PIPERACIL-TAZO 4.5 GM PREMIX 100 ML IV SCH ×4 (00:28→17:57)
[2016-10-17] MEDS: RESP: ALBUTEROL 2.5 MG/IPRATROPIUM 0.5 MG NEB (SCH) NEB ×4 (04:10→21:00)
[2016-10-17] MEDS: PHENYTOIN INJ 100 MG/2 ML VIAL IV SCH ×3 (05:18→21:41)
[2016-10-17] MEDS: hydrALAZINE HCL 20 MG/ML VIAL IV PUSH SCH ×4 (05:18→22:00)
[2016-10-17] MEDS: SODIUM CHLOR 0.9% 1000 ML INJ 1,000 ML IV SCH ×2 (05:19→15:30)
[2016-10-17 05:58] LABS: HEMATOCRIT 29.6 % (39.0-51.0); MEAN CELL VOLUME 104.2 FL (80.0-100.0); MEAN CORPUSCULAR HEMOGLOBIN 35.3 PG (27.0-34.0); MEAN CORPUSCULAR HGB CONC 33.8 % (32.0-36.0); PLATELET COUNT 261 TH/MM3 (150-450); RED BLOOD COUNT 2.84 MIL/MM3 (4.50-5.90); RED CELL DISTRIBUTION WIDTH 14.7 % (11.6-17.2); REVIEW FLAG FINAL; WHITE BLOOD COUNT 12.5 TH/MM3 (4.0-11.0)
[2016-10-17 06:18] LABS: BICARBONATE 23.3 MEQ/L (21.0-32.0); POTASSIUM 3.9 MEQ/L (3.5-5.1)
[2016-10-17 06:27] LABS: BLOOD GAS CARBOXYHEMOGLOBIN 1.4 % (0-4); BLOOD GAS HCO3 21 mmol/L (22-26); BLOOD GAS METHEMOGLOBIN 0.8 % (0-2); BLOOD GAS O2 HGB SATURATION 91 % (90-100); BLOOD GAS OXYGEN CONTENT 13.3 Vol % (12.0-20.0); BLOOD GAS PCO2 31 mmHg (38-42); BLOOD GAS PO2 64 mmHg (61-120); BLOOD GAS TOTAL HGB 10.3 G/DL (12.0-16.0); CRITICAL VALUE NO; OXYGEN DEVICE VENTILATOR; TEMP CORR TO 98.6
[2016-10-17 06:28] LABS: DRAW SITE LT RADIAL; FIO2 40 %; NUMBER OF ARTERIAL PUNCTURES 1; STAT NO; ULNAR PULSE PRESENT; VENT SETTINGS SEE COMMENTS
--- NOTE | 2016-10-17 07:05 | RADRPT ---
EXAM DATE/TIME: 10/17/2016 06:10 [facility] COMPARISON: CHEST SINGLE AP, October 16, 2016, 5:27. INDICATIONS : Shortness of breath. MEDICAL HISTORY : Unobtainable. SURGICAL HISTORY : Unobtainable. ENCOUNTER: Subsequent ACUITY: 1 week PAIN SCORE: Non-responsive. LOCATION: Bilateral chest FINDINGS: Endotracheal tube is present with tip just above the miguel a. Nasogastric tube descends into the stoma ch. There has been interval worsening aeration with increasing hazy pleural parenchymal opacities of the lower lung zones bilaterally. Cardiac contours are grossly stable. CONCLUSION: Worsening aeration. Willian Tavares MD on October 17, 2016 at 7:02 Board Certified Radiologist. This report was verified electronically.
[2016-10-17] MEDS: THIAMINE INJ 100 MG in SODIUM CHLORIDE 0.9% INJ 100 ML IV SCH (08:32)
[2016-10-17] MEDS: SODIUM CHLORIDE 0.9% FLUSH 5 ML FLUSH IVF SCH ×2 (08:32→20:16)
[2016-10-17] MEDS: predniSONE 10 MG TAB PO SCH ×2 (08:32→20:17)
[2016-10-17] MEDS: CHLORHEXIDINE 0.12% (ORAL KIT) 15 ML CUP MT SCH ×2 (08:32→19:27)
[2016-10-17] MEDS: FUROSEMIDE 20 MG TAB PO SCH (08:32)
[2016-10-17] MEDS: LISINOPRIL 20 MG TAB PO SCH ×2 (08:32→20:17)
[2016-10-17] MEDS: levETIRAcetam INJ 500 MG in SODIUM CHLORIDE 0.9% INJ 100 ML IV SCH ×2 (08:33→20:17)
[2016-10-17] MEDS: POTASSIUM CHLORIDE 25 MEQ EFFERVESCENT TAB PO SCH (08:33)
[2016-10-17] MEDS: DOCUSATE SODIUM 100 MG/10 ML UDC PO SCH ×2 (08:33→20:16)
--- NOTE | 2016-10-17 09:06 | HHI.CCPN ---
Subjective Brief History This 64-year-old male was in a bar, fell backward from the standing or sitting position. He is brought as a priority 1 trauma alert because of the LOC, [place] coma scale was 10. Initial alcohol level was 237. The patient brought on a spinal board with C-collar in place. Patient underwent CT scan of the head which revealed left fronto parietal areas of hemorrhage and chronic encephalomalacia. Patient was initially placed in the ICU for observation, but then developed seizures. The CT of the brain has worsened and patient's inability to clear secretions lead to hypoxemia and tachypnea requiring intubation. The patient remains mechanically ventilated. PMHx: ETOH abuse, HTN, COPD. Cardiomegly INJURIES: LEFT fronto-temporal contusion, 2 cm. 24 Hour Review/Hospital Course 10/11/2016 No acute events overnight. Patient has remained lethargic. 10/12/16 Patient developed seizures and the repeat CAT scan revealed some more prominent the evolving hemorrhage of the left temporoparietal area commensurate with patient's decreased level of consciousness Inability to clear secretions in combination of decreased level of consciousness with seizures necessitates intubation and currently patient is intubated and ventilated Great care by Dr. Davis throughout the night 10/13/16 Patient remains on the ventilator No more seizures Pupils equal and reactive EEG was negative for repeated seizures 10/14/16 Patient doing well at this time No more seizures Sedation indication patient moves all 4 extremities however left weaker than the right which is consistent with right frontoparietal hemorrhage and contusion Once neurologic function is sufficiently improved and patient can maintain the airway, he will be weaned to extubate 10/15/2016 No seizure activity noted. Remains on Keppra and Dilantin. Pt with a positive sputum culture growing staph aureus and Haemophilus influenza. ID consulted. Continues with fevers. Copious respiratory secretions, preventing CPAP trial today. Added Levsin for his secretion control 10/16/2016 CT of the head today displays increased SDH on the LEFT. We'll plan for trach placement tomorrow, in light of increasing subdural hematoma status, and increasing respiratory secretions. 10/17/2016 No acute events overnight Bedside trach today (Zaire Jessica) Objective Vital Signs Date Time Temp Pulse Resp B/P Pulse Ox O2 Delivery O2 Flow Rate FiO2 10/17/16 04:10 95 40 10/17/16 04:00 99.5 101 22 133/61 Intake and Output 10/16/16 10/16/16 10/16/16 07:59 15:59 23:59 Intake Total 1131 ml 1390 ml 1008 ml Output Total 600 ml 700 ml 450 ml Balance 531 ml 690 ml 558 ml (Zaire Jessica) Result Diagram: 10/17/16 0527 10/17/16 0524 Other Results Laboratory Tests Test 10/17/16 06:14 Blood Gas Puncture Site LT RADIAL Blood Gas Patient Temperature 98.6 Blood Gas HCO3 21 mmol/L (22-26) Blood Gas Base Excess -3.0 mmol/L (-2-2) Blood Gas Oxygen Saturation 91 % (90-100) Arterial Blood pH 7.43 (7.380-7.420) Arterial Blood Partial 31 mmHg (38-42) Pressure CO2 Arterial Blood Partial 64 mmHg Pressure O2 (61-120) Arterial Blood Oxygen Content 13.3 Vol % (12.0-20.0) Arterial Blood 1.4 % (0-4) Carboxyhemoglobin Arterial Blood Methemoglobin 0.8 % (0-2) Blood Gas Hemoglobin 10.3 G/DL (12.0-16.0) Oxygen Delivery Device VENTILATOR Blood Gas Ventilator Setting SEE COMMENTS Blood Gas Inspired Oxygen 40 % Imaging Last 24 hours Impressions Chest X-Ray 10/17/16 0600 Signed Impressions: Service Date/Time: Monday, October 17, 2016 06:10 - CONCLUSION: Worsening aeration. Willian Tavares MD (Zaire Jessica) Exam SPECIAL EFFECTS ARTIST GENERAL: 65-year-old male mechanically ventilated and sedated. SKIN: Warm and dry. HEAD: Normocephalic. EYES: PERRL ENT: No nasal bleeding or discharge. Mucous membranes pink and moist. NECK: Trachea midline. No JVD. CARDIOVASCULAR: Regular rate and rhythm. RESPIRATORY: No accessory muscle use. Rhonchi auscultated in all lung cruz. Breath sounds equal bilaterally. No distress or dyspnea. GASTROINTESTINAL: Abdomen soft, non-tender, slightly distended. + BS MUSCULOSKELETAL: Extremities without cyanosis, +2 edema noted in hands. + peripheral pulses x 4 extremities. NEUROLOGICAL: Sedated and mechanically ventilated. (Zaire Jessica) Urinary Catheter Assessment Date of Insertion: Oct 10, 2016 (Zaire Jessica) Assessment and Plan Plan HABEMATOLEL: Patient fell backwards at a bar. +LOC. + ETOH = 237, GCS 14 on arrival. Patient sustained a subdural hematoma and due to the development of seizure activity, he was intubated and mechanically ventilated. INJURIES: LEFT fronto-temporal contusion, 2 cm. ASSESSMENT AND PLAN: NEUROLOGICAL: Patient sedated with Diprivan and and mechanically ventilated. Goal RASS score of -2 Provide anesthesia for comfort and pain. Monitor for ETOH withdrawal. Ativan PRN Neuro checks q 2 hours. Monitor for seizures, on Keppra and Dilantin. HOB elevated 30 degrees Neurosurgery following CARDIOVASCULAR: HR = sinus rhythm to sinus tachycardia HR=90-115 BP stable PO Lisinopril. Labetalol IV, and Hydralazine IV ordered PRN. IVF: NS 40 mL/H. Daily Lasix 20 mg (with Potassium 20 MEQ daily) Continually monitor for hemodynamic instability (shock and hypotension) Follow [facility] Electrolyte protocol in place RESPIRATORY: Vent settings: PRVC/AC 500 / 14 / 40% / 1.0 / +5 Monitor for hypoxemia Increased respiratory secretions. Pulmonary toilet L&S as needed. Levsin PRN Bedside PROPERTY CUSTODIAN today with Dr Hernandez and Dr Arteaga. Bronchodilators - Duonebs Sputum culture from 09/12 - positive for staph aureus and Haemophilus influenza. - Zosyn and Vanco Infectious disease following GASTROINTESTINAL: Diet tolerating TF Jevity at goal Bowel regimen Colace, MOM. LBM 10/17 Consult GI for plan for PEG placement. RENAL / URINARY: I&O + 1744 BUN / creat 18 / 0.[address] to bedside drainage bag. ENDOCRINE: BGM WNL HEMATOLOGY: H&H .6 PLT 261 Continue to monitor for signs and symptoms of bleeding Transfuse for < 7.0 INFECTIOUS DISEASE: Follow CBC WBC - 12.5 Tmax 99.5 Administer antipyretics for temp as needed. Sputum culture on 10/12 - positive for staph aureus and Haemophilus influenza. IV Zosyn and Vanco- ID managing Follow chest x-rays. Maintain vigorous aseptic care of IVs to avoid blood stream infection. PROPHYLAXIS: GI Protonix IV. DVT - mechanical VTE with SCD's. Chemical prophylaxis contraindicated at this time due to increasing subarachnoid hemorrhage and parenchymal contusion. SKIN: Warm / Dry Specialty bed ACTIVITY: Status - BR PT and OT evaluating. CASE MANAGEMENT: Consulted for assist with DC planning. Placement - disposition. No family at bedside to discuss plan of care. Discussed with RN at bedside. Pt remains critically ill in the ICU. (Zaire Jessica) Attestation Patient underwent tracheostomy today and scissoring slow recovery of the neurologic function This is the only way will be able to separate patient from the ventilator The exam, history, and the medical decision-making described in the above note were completed with the assistance of the mid-level provider. I reviewed and agree with the findings presented. I attest that I had a [id number] encounter with the patient on the same day, and personally performed and documented my assessment and findings in the medical record. Critical care time 60 minutes. (Jak Flores MD) Zaire Jessica Oct 17, 2016 09:06 Jak Flores MD Oct 18, 2016 12:18
[2016-10-17] MEDS ORDERED: ROCURONIUM INJ 50 MG/5 ML VIAL ONE ×2 (10:46→11:50)
--- NOTE | 2016-10-17 10:50 | HHI.PR ---
Neuropsych Progress Notes/Response to Tx Contents of Sessions: Level of Consciousness Time with Patient: 15 minutes Premorbid psychological status Essentially unknown. The patient does appear to have chronic substance dependence issues, given toxicology and neuroimaging results. Maximizing acute care outcome It is recommended that the patient be monitored for emergent behavioral impulsivity as the medical condition evolves. This patients neuropathological challenges may limit their rehabilitation potential going forward, in addition to premorbid psychosocial challenges, and these challenges will require specialized therapeutic skills to maximize outcome. Anticipated Problems Ongoing areas of concern will include behavioral impulsivity, lack of insight and judgment, which may or may not be expected to improve with time and treatment. 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 Treatment Plan To be determined based on his ongoing pattern of recovery. Current [place] Level: II Diagnosis: (1) Progress Note Narrative Patient seen in room. Generally no change is cognitive functioning since yesterday. He remains unconscious and minimally responsive. Kareem Luther PhD Oct 17, 2016 10:50
[2016-10-17] MEDS: VANCOMYCIN 1,000 MG/NS 250 ML IV SCH ×2 (10:51)
[2016-10-17] MEDS ORDERED: GELATIN 12 MM/7 MM FOAM ONE (11:30)
--- NOTE | 2016-10-17 12:39 | RADRPT ---
EXAM DATE/TIME: 10/17/2016 12:25 [place] COMPARISON: CHEST SINGLE AP, October 17, 2016, 6:10. INDICATIONS : Post bronch MEDICAL HISTORY : None. SURGICAL HISTORY : None. ENCOUNTER: Subsequent ACUITY: 1 week PAIN SCORE: Non-responsive. LOCATION: Bilateral chest FINDINGS: The tracheostomy is in satisfactory position. There is a nasogastric tube present. There are bibasilar effusions. There is consolidation in the left lower lobe. These changes are stabl e compared to prior exam. No pneumothorax is seen. The visualized bony structures are intact. CONCLUSION: 1. No pneumothorax and 5. 2. Support equipment in good position. 3. Continued bibasilar effusions and consolidation in the left lung base. Amari Crocker MD on October 17, 2016 at 12:35 Board Certified Radiologist. This report was verified electronically.
--- NOTE | 2016-10-17 21:40 | HHI.NSPN ---
History Chief Complaint: not verbalizing well Interval History 67-year-old male admitted 10/10/16 following a fall, inebriated, with CT scan revealing relatively small left frontal parenchymal hemorrhage. 10/11/16 patient required intubation with mechanical ventilation due to decreasing mental status, respiratory difficulty. Positive seizure activity witnessed at [facility]. 10/13/16: Remains intubated, sedated. No definite seizure activity reported 10/15/16: Remains intubated and sedated. 02/16/16: Tracheostomy today. Remains on ventilator, sedated on propofol Exam Results Vital Signs Date Time Temp Pulse Resp B/P Pulse Ox O2 Delivery O2 Flow Rate FiO2 10/17/16 21:01 99 40 10/17/16 20:00 98.8 92 21 116/58 Intake and Output 10/16/16 10/16/16 10/16/16 07:59 15:59 23:59 Intake Total 1131 ml 1390 ml 1008 ml Output Total 600 ml 700 ml 450 ml Balance 531 ml 690 ml 558 ml Physical Examination Tracheostomy in place Minimal eye opening to sternal rub. Pupils 2 -3 mm nonreactive. Mild oculocephalic movements Minimal intermittent grimacing deep pain No movement extremities to deep pain Not following commands Lab, Micro, Other Results Laboratory Tests Test 10/16/16 10/17/16 10/17/16 10/17/16 23:45 05:24 05:27 06:14 Vancomycin Level Trough 9.8 MCG/ML Sodium Level 141 MEQ/L Potassium Level 3.9 MEQ/L Chloride Level 107 MEQ/L Carbon Dioxide Level 23.3 MEQ/L Anion Gap 11 MEQ/L Blood Urea Nitrogen 18 MG/DL Creatinine 0.78 MG/DL Estimat Glomerular Filtration 100 ML/MIN Rate Random Glucose 158 MG/DL Calcium Level 8.0 MG/DL Magnesium Level 2.0 MG/DL White Blood Count 12.5 TH/MM3 Red Blood Count 2.84 MIL/MM3 Hemoglobin 10.0 GM/DL Hematocrit 29.6 % Mean Corpuscular Volume 104.2 FL Mean Corpuscular Hemoglobin 35.3 PG Mean Corpuscular Hemoglobin 33.8 % Concent Red Cell Distribution Width 14.7 % Platelet Count 261 TH/MM3 Mean Platelet Volume 7.6 FL Blood Gas Puncture Site LT RADIAL Blood Gas Patient Temperature 98.6 Blood Gas HCO3 21 mmol/L Blood Gas Base Excess -3.0 mmol/L Blood Gas Oxygen Saturation 91 % Arterial Blood pH 7.43 Arterial Blood Partial 31 mmHg Pressure CO2 Arterial Blood Partial 64 mmHg Pressure O2 Arterial Blood Oxygen Content 13.3 Vol % Arterial Blood 1.4 % Carboxyhemoglobin Arterial Blood Methemoglobin 0.8 % Blood Gas Hemoglobin 10.3 G/DL Oxygen Delivery Device VENTILATOR Blood Gas Ventilator Setting SEE COMMENTS Blood Gas Inspired Oxygen 40 % Medical Decision Making Impression and Plan Impression: 1. Traumatic brain injury with mild increase in left primarily frontotemporal contusion and subarachnoid hemorrhage on CT scan of 10/12/16. No significant mass effect. Mild bilateral subdural hygromas. Moderate diffuse atrophy. Remains with minimally responsive neurologic exam. Encephalopathy Plan: Plan follow-up CT scan had next week to monitor for development of progressive subdural hygroma or hematoma. Continuing close ISC neuro checks and vital signs. Continue Keppra and Dilantin. l Observe for further seizure activity Possible follow-up EEG next week if no improvement in neurologic function. Ventilatory support continuing per intensivists. Non-chemical DVT prophylaxis Sourav Jerry MD Oct 17, 2016 21:40
[2016-10-17] MEDS: PANTOPRAZOLE SODIUM 40 MG VIAL IV SCH (22:00)
[2016-10-18] VITALS (16 sets, daily range): BP systolic 134–179; BP diastolic 69–83; PULSE 66–106; RESP 16–22; TEMP 97.7–98.8; O2SAT 95–100
[2016-10-18] MEDS: PIPERACIL-TAZO 4.5 GM PREMIX 100 ML IV SCH ×3 (00:04→11:52)
[2016-10-18] MEDS: VANCOMYCIN 1,500 MG/NS 500 ML IV SCH ×4 (00:55→11:52)
[2016-10-18] MEDS: PROPOFOL 1000 MG/100 ML INJ 100 ML IV SCH ×2 (01:00→05:45)
[2016-10-18] MEDS: RESP: ALBUTEROL 2.5 MG/IPRATROPIUM 0.5 MG NEB (SCH) NEB ×4 (03:28→20:24)
[2016-10-18 04:47] LABS: AUTOMATED NEUTROPHIL # 9.7 TH/MM3 (1.8-7.7); BASOPHIL # 0.2 TH/MM3 (0-0.2); BASOPHIL % 1.3 % (0.0-2.0); EOSINOPHIL # 0.5 TH/MM3 (0-0.4); EOSINOPHIL % 3.5 % (0.0-4.0); HEMATOCRIT 32.9 % (39.0-51.0); HEMO FLAGS DIFF FINAL; LYMPHOCYTE # 1.2 TH/MM3 (1.0-4.8); MEAN CELL VOLUME 104.3 FL (80.0-100.0); MEAN CORPUSCULAR HEMOGLOBIN 35.5 PG (27.0-34.0); NEUT % 75.2 % (16.0-70.0); PLATELET COUNT 278 TH/MM3 (150-450); RED BLOOD COUNT 3.15 MIL/MM3 (4.50-5.90); RED CELL DISTRIBUTION WIDTH 15.4 % (11.6-17.2); WHITE BLOOD COUNT 12.9 TH/MM3 (4.0-11.0)
[2016-10-18 05:05] LABS: BICARBONATE 24.4 MEQ/L (21.0-32.0); POTASSIUM 4.3 MEQ/L (3.5-5.1)
[2016-10-18] MEDS: PHENYTOIN INJ 100 MG/2 ML VIAL IV SCH ×3 (05:45→20:13)
[2016-10-18] MEDS: hydrALAZINE HCL 20 MG/ML VIAL IV PUSH SCH ×4 (05:45→22:35)
[2016-10-18] MEDS: CHLORHEXIDINE 0.12% (ORAL KIT) 15 ML CUP MT SCH ×2 (08:00→20:14)
[2016-10-18] MEDS: predniSONE 10 MG TAB PO SCH ×2 (08:45→20:13)
[2016-10-18] MEDS: FUROSEMIDE 20 MG TAB PO SCH (08:45)
[2016-10-18] MEDS: DOCUSATE SODIUM 100 MG/10 ML UDC PO SCH ×2 (08:45→20:12)
[2016-10-18] MEDS: SODIUM CHLORIDE 0.9% FLUSH 5 ML FLUSH IVF SCH ×2 (08:45→20:13)
[2016-10-18] MEDS: LISINOPRIL 20 MG TAB PO SCH ×2 (08:45→20:13)
[2016-10-18] MEDS: THIAMINE HCL 100 MG TAB PO SCH (08:45)
[2016-10-18] MEDS: levETIRAcetam INJ 500 MG in SODIUM CHLORIDE 0.9% INJ 100 ML IV SCH ×2 (08:45→20:12)
[2016-10-18] MEDS: POTASSIUM CHLORIDE 25 MEQ EFFERVESCENT TAB PO SCH (08:46)
[2016-10-18] MEDS ORDERED: DEXTROSE 50% IN WATER 50 ML VIAL(D50) IV PUSH PRN (09:00)
[2016-10-18] MEDS ORDERED: GLUCAGON 1 MG/ML VIAL OTHER PRN (09:00)
--- NOTE | 2016-10-18 09:11 | HHI.CCPN ---
Subjective Brief History This 64-year-old male was in a bar, fell backward from the standing or sitting position. He is brought as a priority 1 trauma alert because of the LOC, [place] coma scale was 10. Initial alcohol level was 237. The patient brought on a spinal board with C-collar in place. Patient underwent CT scan of the head which revealed left fronto parietal areas of hemorrhage and chronic encephalomalacia. Patient was initially placed in the ICU for observation, but then developed seizures. The CT of the brain has worsened and patient's inability to clear secretions lead to hypoxemia and tachypnea requiring intubation. The patient remains mechanically ventilated. PMHx: ETOH abuse, HTN, COPD. Cardiomegly INJURIES: LEFT fronto-temporal contusion, 2 cm. 24 Hour Review/Hospital Course 10/11/2016 No acute events overnight. Patient has remained lethargic. 10/12/16 Patient developed seizures and the repeat CAT scan revealed some more prominent the evolving hemorrhage of the left temporoparietal area commensurate with patient's decreased level of consciousness Inability to clear secretions in combination of decreased level of consciousness with seizures necessitates intubation and currently patient is intubated and ventilated Great care by Dr. Davis throughout the night 10/13/16 Patient remains on the ventilator No more seizures Pupils equal and reactive EEG was negative for repeated seizures 10/14/16 Patient doing well at this time No more seizures Sedation indication patient moves all 4 extremities however left weaker than the right which is consistent with right frontoparietal hemorrhage and contusion Once neurologic function is sufficiently improved and patient can maintain the airway, he will be weaned to extubate 10/15/2016 No seizure activity noted. Remains on Keppra and Dilantin. Pt with a positive sputum culture growing staph aureus and Haemophilus influenza. ID consulted. Continues with fevers. Copious respiratory secretions, preventing CPAP trial today. Added Levsin for his secretion control 10/16/2016 CT of the head today displays increased SDH on the LEFT. We'll plan for trach placement tomorrow, in light of increasing subdural hematoma status, and increasing respiratory secretions. 10/17/2016 No acute events overnight Bedside trach today 10/18/2016 S/P SENIOR NET SOFTWARE DEVELOPER placement Tolerating CPAP Not following commands (Zaire Jessica) Objective Vital Signs Date Time Temp Pulse Resp B/P Pulse Ox O2 Delivery O2 Flow Rate FiO2 10/18/16 08:43 98 40 12/24/16 08:43 Ventilator 10/18/16 08:00 90 10/18/16 08:00 97.7 16 149/69 Intake and Output 10/17/16 10/17/16 10/18/16 08:00 16:00 00:00 Intake Total 996 ml 1029 ml 1091 ml Output Total 500 ml 950 ml 675 ml Balance 496 ml 79 ml 416 ml (Zaire Jessica) Result Diagram: 10/18/16 0359 10/18/16 0359 Imaging Last Impressions Chest X-Ray 10/17/16599 Signed Impressions: Service Date/Time: Monday, October 17, 2016 06:10 - CONCLUSION: Worsening aeration. Willian Tavares MD Head CT 10/16/16599 Signed Impressions: Service Date/Time: September 04:59 - CONCLUSION: 1. Increased subdural hematoma/cystic hygroma on the left and with associated 5 mm of rightward midline shift now present. Right subdural collection unchanged. 2. Left frontal, parietal and temporal lobe parenchymal hemorrhage not significantly changed. 3. Sinus disease again noted. Willian Reynaga MD Pelvis X-Ray 10/10/162204 Signed Impressions: Service Date/Time: Monday, October 10, 2016 21:49 - CONCLUSION: Satisfactory trauma pelvis appearance. 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 SKIN: Warm and dry. HEAD: Normocephalic. EYES: PERRL ENT: No nasal bleeding or discharge. Mucous membranes pink and moist. NECK: Trachea midline. No JVD. CARDIOVASCULAR: Regular rate and rhythm. RESPIRATORY: No accessory muscle use. Rhonchi auscultated in all lung cruz. Breath sounds equal bilaterally. No distress or dyspnea. GASTROINTESTINAL: NGT in place. Abdomen firm, non-tender, tympanic, slightly distended. + BS. F/C in place. MUSCULOSKELETAL: Extremities without cyanosis, +2 edema noted in hands. + peripheral pulses x 4 extremities. NEUROLOGICAL: Alert, not following commands (Zaire Jessica) Urinary Catheter Assessment Date of Insertion: Oct 10, 2016 (Zaire Jessica) Assessment and Plan Plan [place] FOR[place]: Patient fell backwards at a bar. +LOC. + ETOH = 237, GCS 14 on arrival. Patient sustained a subdural hematoma and due to the development of seizure activity, he was intubated and mechanically ventilated. INJURIES: LEFT fronto-temporal contusion, 2 cm. ASSESSMENT AND PLAN: NEUROLOGICAL: On sedation vacation. Alert, does not follow. Goal RASS score of -2 Provide anesthesia for comfort and pain. Neuro checks q 2 hours. Monitor for seizures, on Keppra and Dilantin. Ativan PRN HOB elevated 30 degrees Neurosurgery following CARDIOVASCULAR: HR = sinus rhythm to sinus tachycardia HR=90-115 BP stable PO Lisinopril. Labetalol IV, and Hydralazine IV ordered PRN. IVF: DC IVF Daily Lasix 20 mg (with Potassium 20 MEQ daily) Follow [facility] Electrolyte protocol in place RESPIRATORY: Vent settings: PRVC/AC 500 / 14 / 40% / 1.0 / +5 . On CPAP today 40% / 5 / +5 Monitor for hypoxemia Increased respiratory secretions. Levsin PRN Pulmonary toilet L&S as needed. Prednisone 10mg PO BID Bronchodilators - Duonebs Sputum culture from 09/12 - positive for staph aureus and Haemophilus influenza. - Zosyn and Vanco Infectious disease following GASTROINTESTINAL: Diet tolerating TF Jevity at goal Bowel regimen Colace, MOM. LBM 10/18 GI consulted for PEG placement. RENAL / URINARY: I&O + 1087 BUN / creat 20/0.[address] to bedside drainage bag. ENDOCRINE: BGM 150-180. Started on low dose sliding scale. HEMATOLOGY: H&H 11.2 / 32.9 PLT 278 Continue to monitor for signs and symptoms of bleeding Transfuse for < 7.0 INFECTIOUS DISEASE: Follow CBC WBC - 12.9 Afebrile Administer antipyretics for temp as needed. Sputum culture on 10/12 - positive for staph aureus and Haemophilus influenza. IV Zosyn and Vanco- ID managing Follow chest x-rays. Maintain vigorous aseptic care of IVs to avoid blood stream infection. PROPHYLAXIS: GI Protonix IV. DVT - mechanical VTE with SCD's. Chemical prophylaxis contraindicated at this time due to increasing subarachnoid hemorrhage and parenchymal contusion. SKIN: Warm / Dry Specialty bed ACTIVITY: Status - BR PT and OT evaluating. CASE MANAGEMENT: Consulted for assist with DC planning. Placement - disposition. No family at bedside to discuss plan of care. Discussed with RN at bedside. Pt remains critically ill in the ICU. 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 I reviewed and agree with the findings presented. I attest that I had a [id number] encounter with the patient on the same day, and personally performed and documented my assessment and findings in the medical record. Critical care time 40 minutes. (Jak Flores MD) Zaire Jessica Oct 18, 2016 09:11 Jak Flores MD Oct 23, 2016 10:17
[2016-10-18] MEDS: LABETALOL HCL 100 MG/20 ML VIAL IV PUSH PRN ×5 (09:19→20:12)
[2016-10-18] MEDS: LORazepam 2 MG/ML VIAL IV PUSH PRN ×2 (09:50→20:13)
[2016-10-18] MEDS: INSULIN NovoLIN REGULAR SUPPLEMENTAL SCALE SQ SCH ×3 (10:59→21:00)
[2016-10-18] MEDS: HYOSCYAMINE 0.125 MG TAB PO PRN ×2 (11:58→18:32)
--- NOTE | 2016-10-18 13:34 | HHI.IDPN ---
Subjective Subjective Remarks Notes reviewed D/W RN Temps ok On CPAP all day S/P trach yesterday Secretions are bloody BP ok CT with increased SDH Antibiotics Zosyn Vancomycin Lines PIV Past Medical History Not known Allergies: Coded Allergies: Bee Sting (Verified Allergy, Severe, Anaphylaxis, 09/04/15) Codeine (Verified Allergy, Mild, SWELLING, ITCHING, 09/04/15) Objective . Vital Signs Date Time Temp Pulse Resp B/P Pulse Ox O2 Delivery O2 Flow Rate FiO2 10/18/16 12:47 98 40 10/18/16 12:00 98.1 90 22 161/78 97 10/18/16 12:00 90 10/18/16 08:43 98 40 10/18/16 08:43 98 Ventilator 40 10/18/16 08:43 40 10/18/16 08:00 90 10/18/16 08:00 97.7 90 16 149/69 98 10/18/16 08:00 40 10/18/16 06:00 96 10/18/16 04:39 100 40 10/18/16 04:00 98 10/18/16 04:00 98.4 98 17 158/72 100 10/18/16 04:00 100 10/18/16 02:00 101 10/18/16 01:12 98 40 10/18/16 00:00 98.8 106 20 147/73 97 10/18/16 00:00 100 10/18/16 00:00 106 10/17/16 22:23 95 40 10/17/16 22:00 112 10/17/16 21:01 99 40 10/17/16 20:00 98.8 92 21 116/58 99 10/17/16 20:00 100 10/17/16 20:00 94 10/17/16 16:08 99 40 10/17/16 16:00 100 10/17/16 16:00 98.1 95 16 131/60 99 10/17/16 10/17/16 10/18/16 15:00 23:00 07:00 Intake Total 1029 ml 1091 ml 1367 ml Output Total 950 ml 675 ml 775 ml Balance 79 ml 416 ml 592 ml IV Total 929 ml 636 ml 997 ml Tube Feeding 0 ml 395 ml 310 ml Tube Irrigant 60 ml 60 ml Other 100 ml Output Urine Total 950 ml 675 ml 775 ml # Bowel Movements 2 0 1 . Laboratory Tests Test 10/17/16 10/18/16 05:27 03:59 White Blood Count 12.5 TH/MM3 12.9 TH/MM3 Red Blood Count 2.84 MIL/MM3 3.15 MIL/MM3 Hemoglobin 10.0 GM/DL 11.2 GM/DL Hematocrit 29.6 % 32.9 % Mean Corpuscular Volume 104.2 FL 104.3 FL Mean Corpuscular Hemoglobin 35.3 PG 35.5 PG Mean Corpuscular Hemoglobin 33.8 % 34.0 % Concent Red Cell Distribution Width 14.7 % 15.4 % Platelet Count 261 TH/MM3 278 TH/MM3 Mean Platelet Volume 7.6 FL 7.7 FL Neutrophils (%) (Auto) 75.2 % Lymphocytes (%) (Auto) 9.0 % Monocytes (%) (Auto) 11.0 % Eosinophils (%) (Auto) 3.5 % Basophils (%) (Auto) 1.3 % Neutrophils # (Auto) 9.7 TH/MM3 Lymphocytes # (Auto) 1.2 TH/MM3 Monocytes # (Auto) 1.4 TH/MM3 Eosinophils # (Auto) 0.5 TH/MM3 Basophils # (Auto) 0.2 TH/MM3 CBC Comment DIFF FINAL Differential Comment Laboratory Tests Test 10/17/16 10/18/16 05:24 03:59 Sodium Level 141 MEQ/L 139 MEQ/L Potassium Level 3.9 MEQ/L 4.3 MEQ/L Chloride Level 107 MEQ/L 105 MEQ/L Carbon Dioxide Level 23.3 MEQ/L 24.4 MEQ/L Anion Gap 11 MEQ/L 10 MEQ/L Blood Urea Nitrogen 18 MG/DL 20 MG/DL Creatinine 0.78 MG/DL 0.83 MG/DL Estimat Glomerular Filtration 100 ML/MIN 93 ML/MIN Rate Random Glucose 158 MG/DL 159 MG/DL Calcium Level 8.0 MG/DL 8.3 MG/DL Magnesium Level 2.0 MG/DL Microbiology Date/Time Procedure Status Source Growth 10/15/16 14:47 Aerobic Blood Culture - Preliminary Resulted Blood Peripheral NO GROWTH IN 3 DAYS 10/15/16 14:47 Anaerobic Blood Culture - Preliminary Resulted Blood Peripheral NO GROWTH IN 3 DAYS 10/15/16 15:15 Aerobic Blood Culture - Preliminary Resulted Blood Peripheral NO GROWTH IN 3 DAYS 10/15/16 15:15 Anaerobic Blood Culture - Preliminary Resulted Blood Peripheral NO GROWTH IN [address] 10/16/16599 Signed Impressions: Service Date/Time: September 04:59 - CONCLUSION: 1. Increased subdural hematoma/cystic hygroma on the left and with associated 5 mm of rightward midline shift now present. Right subdural collection unchanged. 2. Left frontal, parietal and temporal lobe parenchymal hemorrhage not significantly changed. 3. Sinus disease again noted. Willian Reynaga MD Chest X-Ray 10/16/16599 Signed Impressions: Service Date/Time: September 05:27 - CONCLUSION: No significant change. Willian Reynaga MD Pelvis X-Ray 10/10/162204 Signed Impressions: Service Date/Time: Monday, October 10, 2016 21:49 - CONCLUSION: Satisfactory trauma pelvis appearance. Willian Tavares MD Cervical Spine CT 10/10/162204 Signed Impressions: Service Date/Time: Monday, October 10, 2016 22:08 - CONCLUSION: No acute bony injury in the cervical spine Willian Tavares MD Physical Exam GENERAL: sedated, not in respiratory distress. On CPAP SKIN: Warm and dry, no generalized rash or ecchymosis. HEENT: [place] conjunctivae, no petechia or hemorrhage. No scleral icterus. No injection or drainage. Nose without bleeding, or purulent drainage. Endotracheal tube is in the mouth. NECK: Trach site ok CARDIOVASCULAR: Regular rate and rhythm without murmurs, gallops, or rubs. RESPIRATORY: Coarse breath sounds bilaterally. Some rhonchi heard on the right side. Decreased BS L base ABDOMEN: Soft, distended, no reaction to palpation. Bowel sounds are present and normoactive. No hepato-splenomegaly, or palpable masses. No guarding. MUSCULOSKELETAL: Extremities without clubbing, cyanosis, or edema in BLE. Has edema of hands. No joint effusion, or edema noted. NEUROLOGICAL: Sedated on the vent. No Babinski or ankle clonus. PSYCH: Unable to assess LINE: PIV with no evidence of infection : Chen in place, with clear urine Assessment & Plan Remarks IMPRESSION Pneumonia, likely aspiration - initial sputum with MSSA and Hemophilus Respiratory failure, on vent since 10/11 TBI due to fall - (+) ETOH Fevers, ?new infection - temps better Leukocytosis, stable RECOMMENDATION Change Abx to Rocephin Monitor temps Monitor progress Weaning per CCM D/W Silvana Ding MD Oct 18, 2016 13:34
[2016-10-18] MEDS: cefTRIAXone INJ 2,000 MG in SODIUM CHLORIDE 0.9% INJ 100 ML IV SCH (13:54)
--- NOTE | 2016-10-18 18:58 | MP ---
cc: JEFFREY AHMM MD DATE OF SURGERY 10/17/2016 PREOPERATIVE DIAGNOSIS Respiratory failure, brain trauma POSTOPERATIVE DIAGNOSIS Respiratory failure, brain trauma PROCEDURE Blue rhino tracheostomy SURGEON Morgan Hamm MD ANESTHESIA General. ESTIMATED BLOOD LOSS 100 mL. PROCEDURE IN DETAIL The patient prepped and draped usual fashion and bronchoscope inserted by director of casino marketing. The incision was made anterior neck, deepened down. The patient has a fairly thick thyroid isthmus so there is some bleeding from the veins. This is controlled at the bedside with some 3-0 Prolene and 3-0 Vicryl interrupted stitches. Then the trachea is exposed. With finger palpation, the level of second and third tracheal ring is exposed and needle inserted between second and third ring under direct vision and the wire inserted and passed down under direct vision. Over the wire the dilator is placed and then the blue Rhino inserted and guided down under direct vision to dilate the trachea to the eight size Shiley cannula need. After that, Shiley cannula is passed down over the dilator and placed in position. End tidal CO2 checked and cannula sutured in place with 3-0 Prolene to the skin and tape around the neck. The patient tolerated the procedure well. Chest x-ray obtained. Jeffrey VALDEZ/ /11:28 AM /6:53 PM
[2016-10-18] MEDS: PANTOPRAZOLE SODIUM 40 MG VIAL IV SCH (22:35)
[2016-10-18] MEDS: METOPROLOL TARTRATE 5 MG/5 ML VIAL IV PUSH SCH (22:35)
[2016-10-18] MEDS ORDERED: PHARMACY ORDERED LAB XX ONE (23:45)
[2016-10-19] VITALS (19 sets, daily range): BP systolic 140–176; BP diastolic 68–84; PULSE 68–90; RESP 19–26; TEMP 98.4–99; O2SAT 94–100
[2016-10-19] MEDS: HYOSCYAMINE 0.125 MG TAB PO PRN ×2 (01:16→19:33)
[2016-10-19] MEDS: LORazepam 2 MG/ML VIAL IV PUSH PRN ×3 (01:16→21:27)
[2016-10-19] MEDS: RESP: ALBUTEROL 2.5 MG/IPRATROPIUM 0.5 MG NEB (SCH) NEB ×3 (03:58→15:07)
[2016-10-19] MEDS: METOPROLOL TARTRATE 5 MG/5 ML VIAL IV PUSH SCH ×4 (04:22→21:27)
[2016-10-19] MEDS: PHENYTOIN INJ 100 MG/2 ML VIAL IV SCH ×3 (04:23→20:58)
[2016-10-19] MEDS: hydrALAZINE HCL 20 MG/ML VIAL IV PUSH SCH ×4 (04:23→21:27)
[2016-10-19] MEDS: INSULIN NovoLIN REGULAR SUPPLEMENTAL SCALE SQ SCH ×4 (05:25→20:59)
[2016-10-19] MEDS: THIAMINE HCL 100 MG TAB PO SCH (08:15)
[2016-10-19] MEDS: CHLORHEXIDINE 0.12% (ORAL KIT) 15 ML CUP MT SCH ×2 (08:15→20:59)
[2016-10-19] MEDS: DOCUSATE SODIUM 100 MG/10 ML UDC PO SCH ×2 (08:16→20:59)
[2016-10-19] MEDS: POTASSIUM CHLORIDE 25 MEQ EFFERVESCENT TAB PO SCH (08:16)
[2016-10-19] MEDS: LISINOPRIL 20 MG TAB PO SCH ×2 (08:16→19:33)
[2016-10-19] MEDS: predniSONE 10 MG TAB PO SCH ×2 (08:16→19:33)
[2016-10-19] MEDS: FUROSEMIDE 20 MG TAB PO SCH (08:16)
[2016-10-19] MEDS: SODIUM CHLORIDE 0.9% FLUSH 5 ML FLUSH IVF SCH ×2 (08:16→20:59)
[2016-10-19] MEDS: levETIRAcetam INJ 500 MG in SODIUM CHLORIDE 0.9% INJ 100 ML IV SCH ×2 (08:17→20:58)
--- NOTE | 2016-10-19 11:02 | HHI.CCPN ---
Subjective Brief History This 64-year-old male was in a bar, fell backward from the standing or sitting position. He is brought as a priority 1 trauma alert because of the LOC, [place] coma scale was 10. Initial alcohol level was 237. The patient brought on a spinal board with C-collar in place. Patient underwent CT scan of the head which revealed left fronto parietal areas of hemorrhage and chronic encephalomalacia. Patient was initially placed in the ICU for observation, but then developed seizures. The CT of the brain has worsened and patient's inability to clear secretions lead to hypoxemia and tachypnea requiring intubation. The patient remains mechanically ventilated. PMHx: ETOH abuse, HTN, COPD. Cardiomegly INJURIES: LEFT fronto-temporal contusion, 2 cm. 24 Hour Review/Hospital Course 10/11/2016 No acute events overnight. Patient has remained lethargic. 10/12/16 Patient developed seizures and the repeat CAT scan revealed some more prominent the evolving hemorrhage of the left temporoparietal area commensurate with patient's decreased level of consciousness Inability to clear secretions in combination of decreased level of consciousness with seizures necessitates intubation and currently patient is intubated and ventilated Great care by Dr. Davis throughout the night 10/13/16 Patient remains on the ventilator No more seizures Pupils equal and reactive EEG was negative for repeated seizures 10/14/16 Patient doing well at this time No more seizures Sedation indication patient moves all 4 extremities however left weaker than the right which is consistent with right frontoparietal hemorrhage and contusion Once neurologic function is sufficiently improved and patient can maintain the airway, he will be weaned to extubate 10/15/2016 No seizure activity noted. Remains on Keppra and Dilantin. Pt with a positive sputum culture growing staph aureus and Haemophilus influenza. ID consulted. Continues with fevers. Copious respiratory secretions, preventing CPAP trial today. Added Levsin for his secretion control 10/16/2016 CT of the head today displays increased SDH on the LEFT. We'll plan for trach placement tomorrow, in light of increasing subdural hematoma status, and increasing respiratory secretions. 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 Tolerating CPAP Not following commands 10/19/16 Patient slightly more awake but doesn't follow commands opens eyes spontaneously Tracheostomy clean and dry Patient was on CPAP through the day and then placed on the ventilator through the night Will likely give him another day of CPAP and then place him on trach collar tomorrow, from the ventilator Objective Vital Signs Date Time Temp Pulse Resp B/P Pulse Ox O2 Delivery O2 Flow Rate FiO2 10/19/16 10:04 98 40 10/19/16 10:00 89 10/19/16 08:00 98.7 20 154/71 10/18/16 08:43 Ventilator Intake and Output 10/18/16 10/18/16 10/18/16 07:59 15:59 23:59 Intake Total 1367 ml 1302 ml 972 ml Output Total 775 ml 950 ml 700 ml Balance 592 ml 352 ml 272 ml Result Diagram: 10/18/16 03510/18/[id number] 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 Slightly more awake every day but doesn't follow any commands moves all 4 extremities Hemodynamic/Cardiac Hemodynamically stable but hypertensive Have to institute Lopressor and hydralazine and eventually we will place patient on by mouth meds in addition to lisinopril Pulmonary/Respiratory Bilateral good breath sounds on CPAP Will probably separate from the ventilator tomorrow Abdomen/GI Nutrition Abdomen soft enteral feeds tolerated Patient is only slightly distended however having good bowel movements Urinary Catheter Assessment Date of Insertion: Oct 10, 2016 Assessment and Plan Plan [place]: Patient fell backwards at a bar. +LOC. + ETOH = 237, GCS 14 on arrival. Patient sustained a subdural hematoma and due to the development of seizure activity, he was intubated and mechanically ventilated. INJURIES: LEFT fronto-temporal contusion, 2 cm. ASSESSMENT AND PLAN: NEUROLOGICAL: On sedation vacation. Alert, does not follow. Goal RASS score of -2 Provide anesthesia for comfort and pain. Neuro checks q 2 hours. Monitor for seizures, on Keppra and Dilantin. Ativan PRN HOB elevated 30 degrees Neurosurgery following CARDIOVASCULAR: HR = sinus rhythm to sinus tachycardia HR=90-115 BP stable PO Lisinopril. Labetalol IV, and Hydralazine IV ordered PRN. IVF: DC IVF Daily Lasix 20 mg (with Potassium 20 MEQ daily) Follow [facility] Electrolyte protocol in place RESPIRATORY: Vent settings: PRVC/AC 500 / 14 / 40% / 1.0 / +5 . On CPAP today 40% / 5 / +5 Monitor for hypoxemia Increased respiratory secretions. Levsin PRN Pulmonary toilet L&S as needed. Prednisone 10mg PO BID Bronchodilators - Duonebs Sputum culture from 09/12 - positive for staph aureus and Haemophilus influenza. - Zosyn and Vanco Infectious disease following GASTROINTESTINAL: Diet tolerating TF Jevity at goal Bowel regimen Simon, APRYL. LBM 10/18 GI consulted for PEG placement. RENAL / URINARY: I&O + 1087 BUN / creat 20/0.[address] to bedside drainage bag. ENDOCRINE: BGM 150-180. Started on low dose sliding scale. HEMATOLOGY: H&H 11.2 / 32.9 PLT 278 Continue to monitor for signs and symptoms of bleeding Transfuse for < 7.0 INFECTIOUS DISEASE: Follow CBC WBC - 12.9 Afebrile Administer antipyretics for temp as needed. Sputum culture on 10/12 - positive for staph aureus and Haemophilus influenza. IV Zosyn and Vanco- ID managing Follow chest x-rays. Maintain vigorous aseptic care of IVs to avoid blood stream infection. PROPHYLAXIS: GI Protonix IV. DVT - mechanical VTE with SCD's. Chemical prophylaxis contraindicated at this time due to increasing subarachnoid hemorrhage and parenchymal contusion. SKIN: Warm / Dry Specialty bed ACTIVITY: Status - BR PT and OT evaluating. CASE MANAGEMENT: Consulted for assist with DC planning. Placement - disposition. No family at bedside to discuss plan of care. Discussed with RN at bedside. Pt remains critically ill in the ICU. Attestation The exam, history, and the medical decision-making described in the above note were completed with the assistance of the mid-level provider. I reviewed and agree with the findings presented. I attest that I had a [id number] encounter with the patient on the same day, and personally performed and documented my assessment and findings in the medical record. Critical care time 40 minutes. Jak Flores MD Oct 19, 2016 11:02
[2016-10-19] MEDS: cefTRIAXone INJ 2,000 MG in SODIUM CHLORIDE 0.9% INJ 100 ML IV SCH (14:00)
[2016-10-19] MEDS: LABETALOL HCL 100 MG/20 ML VIAL IV PUSH PRN ×3 (14:48→19:33)
[2016-10-19] MEDS: ACETAMINOPHEN 325 MG TAB PO PRN (16:29)
[2016-10-19] MEDS: MORPHINE SULFATE 4 MG/ML INJ IV PRN ×2 (19:33→21:27)
[2016-10-19] MEDS: PANTOPRAZOLE SODIUM 40 MG VIAL IV SCH (21:27)
[2016-10-20] VITALS (20 sets, daily range): BP systolic 109–191; BP diastolic 59–87; PULSE 68–80; RESP 14–35; TEMP 98.3–99.2; O2SAT 95–99
[2016-10-20] MEDS: MORPHINE SULFATE 4 MG/ML INJ IV PRN ×5 (00:29→23:35)
[2016-10-20] MEDS: LORazepam 2 MG/ML VIAL IV PUSH PRN ×2 (03:29→18:06)
[2016-10-20] MEDS: hydrALAZINE HCL 20 MG/ML VIAL IV PUSH SCH ×4 (03:29→21:07)
[2016-10-20] MEDS: METOPROLOL TARTRATE 5 MG/5 ML VIAL IV PUSH SCH ×4 (03:29→21:07)
[2016-10-20 05:40] LABS: BLOOD GAS BASE EXCESS 0.2 mmol/L (-2-2); BLOOD GAS CARBOXYHEMOGLOBIN 1.1 % (0-4); BLOOD GAS HCO3 24 mmol/L (22-26); BLOOD GAS METHEMOGLOBIN 0.6 % (0-2); BLOOD GAS O2 HGB SATURATION 96 % (90-100); BLOOD GAS OXYGEN CONTENT 14.5 Vol % (12.0-20.0); BLOOD GAS PCO2 40 mmHg (38-42); BLOOD GAS PO2 107 mmHg (61-120); BLOOD GAS TOTAL HGB 10.6 G/DL (12.0-16.0); CRITICAL VALUE NO; TEMP CORR TO 98.6
[2016-10-20 05:41] LABS: DRAW SITE RT RADIAL; FIO2 40 %; NUMBER OF ARTERIAL PUNCTURES 1; OXYGEN DEVICE VENTILATOR; STAT NO; ULNAR PULSE PRESENT; VENT SETTINGS PRVC/AC
[2016-10-20] MEDS: PHENYTOIN INJ 100 MG/2 ML VIAL IV SCH ×2 (06:39→13:15)
[2016-10-20] MEDS: INSULIN NovoLIN REGULAR SUPPLEMENTAL SCALE SQ SCH ×4 (06:39→20:14)
--- NOTE | 2016-10-20 06:46 | RADRPT ---
EXAM DATE/TIME: 10/20/2016 05:55 [place] COMPARISON: CHEST SINGLE AP, October 17, 2016, 12:25. INDICATIONS : Shortness of breath. MEDICAL HISTORY : Unobtainable. SURGICAL HISTORY : Unobtainable. ENCOUNTER: Subsequent ACUITY: 1 week PAIN SCORE: Non-responsive. LOCATION: Bilateral chest FINDINGS: A single AP semierect view of the chest was obtained and again demonstrates the tracheostomy tube and nasogastric tube in place. Hazy perihilar and bibasilar opacities again noted with blunting of both costophrenic angles. The opacities appear mildly increased bilaterally. The heart size remains mildly prominent. Atherosclerotic changes are present in the aorta. The bony thorax is intact with overlyin g electrocardiogram leads. CONCLUSION: Mild interval increase in perihilar and bibasilar opacities most consistent with pulm onary edema. The findings could indicate congestive heart failure. Lucio Tyler MD on October 20, 2016 at 6:43 Board Certified Radiologist. This report was verified electronically.
[2016-10-20] MEDS: CHLORHEXIDINE 0.12% (ORAL KIT) 15 ML CUP MT SCH ×2 (08:09→20:12)
[2016-10-20] MEDS: predniSONE 10 MG TAB PO SCH ×2 (09:00→20:13)
[2016-10-20] MEDS: LISINOPRIL 20 MG TAB PO SCH ×2 (09:24→20:13)
[2016-10-20] MEDS: FUROSEMIDE 20 MG TAB PO SCH (09:25)
[2016-10-20] MEDS: THIAMINE HCL 100 MG TAB PO SCH (09:25)
[2016-10-20] MEDS: POTASSIUM CHLORIDE 25 MEQ EFFERVESCENT TAB PO SCH (09:25)
[2016-10-20] MEDS: levETIRAcetam INJ 500 MG in SODIUM CHLORIDE 0.9% INJ 100 ML IV SCH (09:26)
[2016-10-20] MEDS: DOCUSATE SODIUM 100 MG/10 ML UDC PO SCH ×2 (09:38→21:07)
[2016-10-20] MEDS: SODIUM CHLORIDE 0.9% FLUSH 5 ML FLUSH IVF SCH ×2 (09:39→20:13)
--- NOTE | 2016-10-20 10:41 | HHI.IDPN ---
Subjective Subjective Remarks Notes reviewed D/W RN Temps ok Tolerating CPAP trials To be tried on T-piece today Tolerating TF Has liquid stool BP ok S/P trach 10/17 Antibiotics Rocephin Lines PIV Past Medical History Not known Allergies: Coded Allergies: Bee Sting (Verified Allergy, Severe, Anaphylaxis, 09/04/15) Codeine (Verified Allergy, Mild, SWELLING, ITCHING, 09/04/15) Objective . Vital Signs Date Time Temp Pulse Resp B/P Pulse Ox O2 Delivery O2 Flow Rate FiO2 10/20/16 08:05 40 10/20/16 08:05 40 10/20/16 08:00 40 10/20/16 08:00 74 10/20/16 08:00 98.8 76 35 125/72 97 10/20/16 07:52 99 40 10/20/16 06:00 74 10/20/16 04:02 96 40 10/20/16 04:00 99.2 79 14 109/59 96 10/20/16 04:00 40 10/20/16 04:00 79 10/20/16 02:00 74 10/20/16 01:00 97 40 10/20/16 00:00 98.9 69 20 138/68 97 10/20/16 00:00 40 10/20/16 00:00 69 10/19/16 22:00 81 10/19/16 20:00 40 10/19/16 20:00 68 10/19/16 20:00 98.6 68 26 140/68 97 10/19/16 19:45 97 40 10/19/16 18:00 81 10/19/16 17:30 40 10/19/16 17:30 14 10/19/16 17:14 97 40 10/19/16 16:00 81 10/19/16 16:00 40 10/19/16 16:00 98.4 88 26 176/84 95 10/19/16 14:00 81 10/19/16 12:27 95 T-piece 40 10/19/16 12:00 98.8 90 24 170/79 94 10/19/16 12:00 40 10/19/16 12:00 87 10/19/16 10/19/16 10/20/16 14:59 22:59 06:59 Intake Total 608 ml 400 ml 777 ml Output Total 1425 ml 725 ml 325 ml Balance -817 ml -325 ml 452 ml IV Total 95 ml 43 ml 298 ml Tube Feeding 513 ml 237 ml 419 ml Tube Irrigant 120 ml 60 ml Output Urine Total 1325 ml 325 ml 325 ml Stool Total 100 ml 400 ml 0 ml Tube Feeding Residual Discard 0 ml [address] 10/16/16599 Signed Impressions: Service Date/Time: September 04:59 - CONCLUSION: 1. Increased subdural hematoma/cystic hygroma on the left and with associated 5 mm of rightward midline shift now present. Right subdural collection unchanged. 2. Left frontal, parietal and temporal lobe parenchymal hemorrhage not significantly changed. 3. Sinus disease again noted. Willian Reynaga MD Chest X-Ray 10/16/16599 Signed Impressions: Service Date/Time: September 05:27 - CONCLUSION: No significant change. Willian Reynaga MD Pelvis X-Ray 10/10/162204 Signed Impressions: Service Date/Time: Monday, October 10, 2016 21:49 - CONCLUSION: Satisfactory trauma pelvis appearance. Willian Tavares MD Cervical Spine CT 10/10/162204 Signed Impressions: Service Date/Time: Monday, October 10, 2016 22:08 - CONCLUSION: No acute bony injury in the cervical spine Willian Tavares MD Physical Exam GENERAL: sedated, not in respiratory distress. On CPAP SKIN: Warm and dry, no generalized rash or ecchymosis. HEENT: [place] conjunctivae, no petechia or hemorrhage. No scleral icterus. No injection or drainage. Nose without bleeding, or purulent drainage. Endotracheal tube is in the mouth. NECK: Trach site ok CARDIOVASCULAR: Regular rate and rhythm without murmurs, gallops, or rubs. RESPIRATORY: Coarse breath sounds bilaterally. Decreased BS bases ABDOMEN: Distended, bowel sounds are present and normoactive. No hepato- splenomegaly, or palpable masses. No guarding. MUSCULOSKELETAL: Extremities without clubbing, cyanosis, or edema in BLE. Has edema of hands. No joint effusion, or edema noted. NEUROLOGICAL: Sedated on the vent. No Babinski or ankle clonus. PSYCH: Unable to assess LINE: PIV with no evidence of infection : Chen in place, with clear urine Assessment & Plan Remarks IMPRESSION Pneumonia, likely aspiration - initial sputum with MSSA and Hemophilus Respiratory failure, on vent since 10/11 TBI due to fall - (+) ETOH Fevers, ?new infection - temps better Leukocytosis, stable RECOMMENDATION Continue Rocephin - give 7 days Monitor temps Monitor progress Weaning per [facility] D/W Silvana Ding MD Oct 20, 2016 10:41
--- NOTE | 2016-10-20 10:49 | HHI.PR ---
Neuropsych Progress Notes/Response to Tx Contents of Sessions: Level of Consciousness Premorbid psychological status Essentially unknown. The patient does appear to have chronic substance dependence issues, given toxicology and neuroimaging results. Maximizing acute care outcome It is recommended that the patient be monitored for emergent behavioral impulsivity as the medical condition evolves. This patients neuropathological challenges may limit their rehabilitation potential going forward, in addition to premorbid psychosocial challenges, and these challenges will require specialized therapeutic skills to maximize outcome. Anticipated Problems Ongoing areas of concern will include behavioral impulsivity, lack of insight and judgment, which may or may not be expected to improve with time and treatment. 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 Treatment Plan To be determined based on his ongoing pattern of recovery. Current [place] Level: III Diagnosis: (1) Progress Note Narrative Saw patient briefly in his room. He was somnolent, although it was reported that he inconsistently follows basic commands. No family present to discuss course of recovery. Kareem Luther PhD Oct 20, 2016 10:49
[2016-10-20] MEDS: LABETALOL HCL 100 MG/20 ML VIAL IV PUSH PRN ×4 (11:40→20:14)
--- NOTE | 2016-10-20 11:49 | PD.CONS ---
HPI History of Present Illness This is a 65 year male was in a bar, fell backward from the standing or sitting position. He is brought as a trauma alert because of the LOC, [place] coma scale was 10. Initial alcohol level was 237. The patient brought on a spinal board with C-collar in place. Patient underwent CT scan of the head which revealed left fronto parietal areas of hemorrhage and chronic encephalomalacia. Patient was initially placed in the ICU for observation, but then developed seizures. The CT of the brain has worsened and patient's inability to clear secretions lead to hypoxemia and tachypnea requiring intubation. The patient remains mechanically ventilated. He currently has a trach in place and require half-way feeding. GI services have been consulted for PEG tube placement. HPI was obtained from EMR, and nurse. Per nurse, patient is homeless, no family identified, the hospital in process of obtaining guardian ship, but for now, no consents for PEG tube. He is receiving TF via NGT and tolerating well. (Jason Connor) PFSH Past Medical History unable to obtain Past Surgical History Unable to obtain (Jason Connor) Coded Allergies: Bee Sting (Verified Allergy, Severe, Anaphylaxis, 09/04/15) Codeine (Verified Allergy, Mild, SWELLING, ITCHING, 09/04/15) Medications Current Medications Medications (Trade) Dose Ordered Sig/Brandon Route Start Time Stop Time Status Last Admin (NS Flush) 2 ml UNSCH PRN IVF 10/10/16 22:30 (NS Flush) 2 ml BID IVF 10/11/16 09:00 10/20/16 09:39 (Zofran Inj) 4 mg Q6H PRN IV 10/10/16 22:30 (Protonix Inj) 40 mg Q24H IV 10/10/16 23:00 10/19/16 21:27 (Tylenol) 650 mg Q6H PRN PO 10/10/16 22:30 10/19/16 16:29 (Narcan Inj) 0.4 mg UNSCH PRN IV 10/10/16 22:30 (Deltasone) 10 mg BID PO 10/11/16 09:00 10/20/16 09:00 (Prinivil) 20 mg Q12HR PO 10/11/16 09:00 10/20/16 09:24 (Trandate Inj) 20 mg Q2H PRN IV PUSH 10/10/16 23:15 10/19/16 19:33 Hydralazine HCl 10 mg 10 mg Q6H IV PUSH 10/10/16 23:00 10/20/16 10:31 Potassium Chloride 100 ml @ 50 mls/hr Q2H PRN IV 10/11/16 01:15 (KCl 20 Meq Premix Inj) 100 ml @ 50 mls/hr Q2H PRN IV 10/11/16 01:15 Potassium Chloride 40 meq 40 meq UNSCH PRN PO/TUBE 10/11/16 01:15 10/14/16 06:11 Potassium Chloride 100 ml @ 25 mls/hr UNSCH PRN IV 10/11/16 01:15 Potassium Chloride 100 ml @ 50 mls/hr Q2H PRN IV 10/11/16 01:15 10/11/16 04:39 (Magnesium Sulfate Inj/NS Inj) 100 ml @ 50 mls/hr UNSCH PRN IV 10/11/16 01:15 Magnesium Oxide 800 mg 800 mg UNSCH PRN PO 10/11/16 01:15 (Magnesium Sulfate Inj/NS Inj) 100 ml @ 50 mls/hr UNSCH PRN IV 10/11/16 01:15 Potassium Phosphate 2000 mg 2,000 mg Q4H PRN PO 10/11/16 01:15 (Sodium Phosphate Inj/NS 250 ml Inj) 250 ml @ 42 mls/hr UNSCH PRN IV 10/11/16 01:15 10/13/16 06:11 (KCl 40 Meq/30 ml Liq) 40 meq UNSCH PRN PO/TUBE 10/11/16 01:15 Potassium Phosphate 2000 mg 2,000 mg UNSCH PRN PO/TUBE 10/11/16 01:15 (Potassium Phosphate Inj/NS 250 ml Inj) 260 ml @ 42 mls/hr UNSCH PRN IV 10/11/16 01:15 (Dilantin Inj) 100 mg Q8H IV 10/11/16 22:00 10/20/16 06:39 Chlorhexidine Gluconate 15 ml 15 ml BID@08,20 MT 10/12/16 08:00 10/20/16 08:09 (Diprivan 1000 Mg/100ml Inj) 100 ml @ 0 mls/hr TITRATE IV 10/11/16 21:30 10/18/16 05:45 (Colace Liq) 100 mg Q12HR PO 10/12/16 09:00 10/20/16 09:38 Magnesium Hydroxide 30 ml 30 ml DAILY PRN PO 10/12/16 08:45 (Keppra Inj/NS Inj) 105 ml @ 420 mls/hr Q12HR IV 10/12/16 10:00 10/20/16 09:26 (Lasix) 20 mg DAILY PO 10/13/16 11:00 10/20/16 09:25 (K-Lyte Cl Eff) 25 meq DAILY PO 10/14/16 11:00 10/20/16 09:25 (Levsin) 0.125 mg Q4H PRN PO 10/15/16 14:45 10/19/16 19:33 (Vitamin B1) 100 mg DAILY PO 10/18/16 09:00 10/20/16 09:25 (D50w (Vial) Inj) 25 ml UNSCH PRN IV PUSH 10/18/16 09:00 Glucagon 1 mg 1 mg UNSCH PRN OTHER 10/18/16 09:00 (Rocephin Inj/NS Inj) 100 ml @ 200 mls/hr Q24H IV 10/18/16 14:00 10/24/16 23:00 10/19/16 14:00 (Lopressor Inj) 5 mg Q6H IV PUSH 10/18/16 23:00 10/20/16 10:31 (Morphine Inj) 4 mg Q2H PRN IV 10/19/16 19:30 10/20/16 03:28 (Ativan Inj) 0.5 mg Q8H PRN IV PUSH 10/20/16 12:00 Family History Non contributory Social History Unable to obtain (Jason Connor) Review of Systems ROS Unable to obtain, patient is ventilated (Jason Connor) GI Exam Vitals I&O Vital Signs Date Time Temp Pulse Resp B/P Pulse Ox O2 Delivery O2 Flow Rate FiO2 10/20/16 11:30 40 10/20/16 10:00 77 10/20/16 08:30 76 10/20/16 08:05 40 10/20/16 08:05 40 10/20/16 08:00 40 10/20/16 08:00 74 10/20/16 08:00 98.8 76 35 125/72 97 12/26/16 07:52 99 40 10/20/16 06:00 74 10/20/16 04:02 96 40 10/20/16 04:00 99.2 79 14 109/59 96 10/20/16 04:00 40 10/20/16 04:00 79 10/20/16 02:00 74 10/20/16 01:00 97 40 10/20/16 00:00 98.9 69 20 138/68 97 10/20/16 00:00 40 10/20/16 00:00 69 10/19/16 22:00 81 10/19/16 20:00 40 10/19/16 20:00 68 10/19/16 20:00 98.6 68 26 140/68 97 10/19/16 19:45 97 40 10/19/16 18:00 81 10/19/16 17:30 40 10/19/16 17:30 14 10/19/16 17:14 97 40 10/19/16 16:00 81 10/19/16 16:00 40 10/19/16 16:00 98.4 88 26 176/84 95 10/19/16 14:00 81 10/19/16 12:27 95 T-piece 40 10/19/16 12:00 98.8 90 24 170/79 94 10/19/16 12:00 40 10/19/16 12:00 87 I/O 10/19/16 10/19/16 10/19/16 10/20/16 10/20/16 10/20/16 06:59 14:59 22:59 06:59 14:59 22:59 Intake Total 642 ml 608 ml 400 ml 777 ml Output Total 600 ml 1425 ml 725 ml 325 ml 0 ml Balance 42 ml -817 ml -325 ml 452 ml 0 ml IV Total 201 ml 95 ml 43 ml 298 ml Tube Feeding 381 ml 513 ml 237 ml 419 ml Tube Irrigant 60 ml 120 ml 60 ml Output Urine Total 600 ml 1325 ml 325 ml 325 ml Stool Total 100 ml 400 ml 0 ml Tube Feeding Residual Discard 0 ml 0 ml 0 ml 0 ml # Bowel Movements 1 Imaging Last Impressions Chest X-Ray 10/20/16 0600 Signed Impressions: Service Date/Time: Thursday, October 20, 2016 05:55 - CONCLUSION: Mild interval increase in perihilar and bibasilar opacities most consistent with pulmonary edema. The findings could indicate congestive heart failure. Lucio Tyler MD Head CT 10/16/16 0600 Signed Impressions: Service Date/Time: September 04:59 - CONCLUSION: 1. Increased subdural hematoma/cystic hygroma on the left and with associated 5 mm of rightward midline shift now present. Right subdural collection unchanged. 2. Left frontal, parietal and temporal lobe parenchymal hemorrhage not significantly changed. 3. Sinus disease again noted. Willian Reynaga MD Pelvis X-Ray 10/10/162204 Signed Impressions: Service Date/Time: Monday, October 10, 2016 21:49 - CONCLUSION: Satisfactory trauma pelvis appearance. Willian Tavares MD Cervical Spine CT 10/10/162204 Signed Impressions: Service Date/Time: Monday, October 10, 2016 22:08 - CONCLUSION: No acute bony injury in the cervical spine Willian Tavares MD Laboratory Test 10/19/16 10/20/16 17:35 05:30 Nasal Screen MRSA (PCR) NEGATIVE Blood Gas Puncture Site RT RADIAL Blood Gas Patient Temperature 98.6 Blood Gas HCO3 24 mmol/L Blood Gas Base Excess 0.2 mmol/L Blood Gas Oxygen Saturation 96 % Arterial Blood pH 7.40 Arterial Blood Partial 40 mmHg Pressure CO2 Arterial Blood Partial 107 mmHg Pressure O2 Arterial Blood Oxygen Content 14.5 Vol % Arterial Blood 1.1 % Carboxyhemoglobin Arterial Blood Methemoglobin 0.6 % Blood Gas Hemoglobin 10.6 G/DL Oxygen Delivery Device VENTILATOR Blood Gas Ventilator Setting PRVC/AC Blood Gas Inspired Oxygen 40 % Date/Time Procedure Status Source Growth 10/15/16 15:15 Aerobic Blood Culture - Final Complete Blood Peripheral NO GROWTH IN 5 DAYS 10/15/16 15:15 Anaerobic Blood Culture - Final Complete Blood Peripheral NO GROWTH IN 5 DAYS Physical Examination HEENT: normocephalic; atraumatic; no jaundice. Throat is clear. NECK: Neck is supple, no JVD, no lymphadenopathy.trach CHEST: Chest is clear to auscultation and percussion. CARDIAC: Regular rate and rhythm with no murmur gallop or rubs. ABDOMEN: Soft, slightly distended, obese, nontender; no hepatosplenomegaly; bowel sounds are present in all four quadrants. EXTREMITIES: No clubbing, cyanosis, or edema. SKIN: Normal; no rash; no jaundice. 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 He is brought as a trauma alert because of the LOC, [place] coma scale was 10. Initial alcohol level was 237. The patient brought on a spinal board with C-collar in place. Patient underwent CT scan of the head which revealed left fronto parietal areas of hemorrhage and chronic encephalomalacia. Patient was initially placed in the ICU for observation, but then developed seizures. The CT of the brain has worsened and patient's inability to clear secretions lead to hypoxemia and tachypnea requiring intubation. The patient remains mechanically ventilated. 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 GI services have been consulted for PEG tube placement. HPI was obtained from EMR, and nurse. Per nurse, patient is homeless, no family identified, the hospital in process of obtaining guardian ship, but for now, no consents for PEG tube. He is receiving TF via NGT and tolerating well. Plan: - TF per dietary recommendations - Unfortunately, no consents at this time, will reassess - Notify GI once able to obtain consents - Supportive care - Patient seen and examined by Dr. Oneill and myself and this note is written on his behalf. (Jason Connor) Physician Comments Seen and examined, plan as above, EGD/PEG placement once consent obtained. ( Bk Oneill MD) Jason Connor Oct 20, 2016 11:49 Bk Oneill MD Oct 20, 2016 12:06
[2016-10-20] MEDS: cefTRIAXone INJ 2,000 MG in SODIUM CHLORIDE 0.9% INJ 100 ML IV SCH (13:16)
--- NOTE | 2016-10-20 15:16 | HHI.CCPN ---
Subjective Brief History This 64-year-old male was in a bar, fell backward from the standing or sitting position. He is brought as a priority 1 trauma alert because of the LOC, [place] coma scale was 10. Initial alcohol level was 237. The patient brought on a spinal board with C-collar in place. Patient underwent CT scan of the head which revealed left fronto parietal areas of hemorrhage and chronic encephalomalacia. Patient was initially placed in the ICU for observation, but then developed seizures. The CT of the brain has worsened and patient's inability to clear secretions lead to hypoxemia and tachypnea requiring intubation. The patient remains mechanically ventilated. PMHx: ETOH abuse, HTN, COPD. Cardiomegly INJURIES: LEFT fronto-temporal contusion, 2 cm. 24 Hour Review/Hospital Course 10/11/2016 No acute events overnight. Patient has remained lethargic. 10/12/16 Patient developed seizures and the repeat CAT scan revealed some more prominent the evolving hemorrhage of the left temporoparietal area commensurate with patient's decreased level of consciousness Inability to clear secretions in combination of decreased level of consciousness with seizures necessitates intubation and currently patient is intubated and ventilated Great care by Dr. Davis throughout the night 10/13/16 Patient remains on the ventilator No more seizures Pupils equal and reactive EEG was negative for repeated seizures 10/14/16 Patient doing well at this time No more seizures Sedation indication patient moves all 4 extremities however left weaker than the right which is consistent with right frontoparietal hemorrhage and contusion Once neurologic function is sufficiently improved and patient can maintain the airway, he will be weaned to extubate 10/15/2016 No seizure activity noted. Remains on Keppra and Dilantin. Pt with a positive sputum culture growing staph aureus and Haemophilus influenza. ID consulted. Continues with fevers. Copious respiratory secretions, preventing CPAP trial today. Added Levsin for his secretion control 10/16/2016 CT of the head today displays increased SDH on the LEFT. We'll plan for trach placement tomorrow, in light of increasing subdural hematoma status, and increasing respiratory secretions. 10/17/2016 No acute events overnight Bedside trach today 10/18/2016 S/P CONSTRUCTION SAFETY CONSULTANT placement Tolerating CPAP Not following commands 10/19/16 Patient slightly more awake but doesn't follow commands opens eyes spontaneously Tracheostomy clean and dry Patient was on CPAP through the day and then placed on the ventilator through the night Will likely give him another day of CPAP and then place him on trach collar tomorrow, from the ventilator 10/20/16 Neurologically patient is doing better following some commands and waking up He is doing well on CPAP and has been moved to the trach collar and will be from the ventilator successful Objective Vital Signs Date Time Temp Pulse Resp B/P Pulse Ox O2 Delivery O2 Flow Rate FiO2 10/20/16 14:00 75 10/20/16 12:16 14 10/20/16 12:00 98.3 127/64 96 10/20/16 12:00 40 10/20/16 11:38 T-piece Intake and Output 10/19/16 10/19/16 10/20/16 08:00 16:00 00:00 Intake Total 642 ml 608 ml 400 ml Output Total 600 ml 1425.0 ml 725.0 ml Balance 42 ml -817.0 ml -325.0 ml Result Diagram: 10/18/16 0359 10/18/16 0359 Other Results Laboratory Tests Test 10/20/16 05:30 Blood Gas Puncture Site RT RADIAL Blood Gas Patient Temperature 98.6 Blood Gas HCO3 24 mmol/L (22-26) Blood Gas Base Excess 0.2 mmol/L (-2-2) Blood Gas Oxygen Saturation 96 % (90-100) Arterial Blood pH 7.40 (7.380-7.420) Arterial Blood Partial 40 mmHg (38-42) Pressure CO2 Arterial Blood Partial 107 mmHg Pressure O2 (61-120) Arterial Blood Oxygen Content 14.5 Vol % (12.0-20.0) Arterial Blood 1.1 % (0-4) Carboxyhemoglobin Arterial Blood Methemoglobin 0.6 % (0-2) Blood Gas Hemoglobin 10.6 G/DL (12.0-16.0) Oxygen Delivery Device VENTILATOR Blood Gas Ventilator Setting PRVC/AC Blood Gas Inspired Oxygen 40 % Imaging Last 24 hours Impressions Chest X-Ray 10/20/16 0600 Signed Impressions: Service Date/Time: Thursday, October 20, 2016 05:55 - CONCLUSION: Mild interval increase in perihilar and bibasilar opacities most consistent with pulmonary edema. The findings could indicate congestive heart failure. 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 Much improved in next few days patient is now opening eyes moving all 4 extremities and following commands Hemodynamic/Cardiac Hemodynamically patient is stable but the hypertension remains to be somewhat of a problem especially when patient is in this transitional face of waking up from a comatose state Patient is currently on the Lopressor, hydralazine and lisinopril and this seems to be controlling his blood pressure is combined with pain medications Pulmonary/Respiratory Bilateral good breath sounds CPAP doing well on TPs doing well and no patient will be on trach collar and be from the ventilator Abdomen/GI Nutrition Abdomen is soft patient had some diarrhea and the rectal tube had to be placed Urinary Catheter Assessment Date of Insertion: Oct 10, 2016 Assessment and Plan Plan HOH: Patient fell backwards at a bar. +LOC. + ETOH = 237, GCS 14 on arrival. Patient sustained a subdural hematoma and due to the development of seizure activity, he was intubated and mechanically ventilated. INJURIES: LEFT fronto-temporal contusion, 2 cm. ASSESSMENT AND PLAN: NEUROLOGICAL: On sedation vacation. Alert, does not follow. Goal RASS score of -2 Provide anesthesia for comfort and pain. Neuro checks q 2 hours. Monitor for seizures, on Keppra and Dilantin. Ativan PRN HOB elevated 30 degrees Neurosurgery following CARDIOVASCULAR: HR = sinus rhythm to sinus tachycardia HR=90-115 BP stable PO Lisinopril. Labetalol IV, and Hydralazine IV ordered PRN. IVF: DC IVF Daily Lasix 20 mg (with Potassium 20 MEQ daily) Follow [facility] Electrolyte protocol in place RESPIRATORY: Vent settings: PRVC/AC 500 / 14 / 40% / 1.0 / +5 . On CPAP today 40% / 5 / +5 Monitor for hypoxemia Increased respiratory secretions. Levsin PRN Pulmonary toilet L&S as needed. Prednisone 10mg PO BID Bronchodilators - Duonebs Sputum culture from 09/12 - positive for staph aureus and Haemophilus influenza. - Zosyn and Vanco Infectious disease following GASTROINTESTINAL: Diet tolerating TF Jevity at goal Bowel regimen Colace, MOM. LBM 10/18 GI consulted for PEG placement. RENAL / URINARY: I&O + 1087 BUN / creat 20/0.[address] to bedside drainage bag. ENDOCRINE: BGM 150-180. Started on low dose sliding scale. HEMATOLOGY: H&H 11.2 / 32.9 PLT 278 Continue to monitor for signs and symptoms of bleeding Transfuse for < 7.0 INFECTIOUS DISEASE: Follow CBC WBC - 12.9 Afebrile Administer antipyretics for temp as needed. Sputum culture on 10/12 - positive for staph aureus and Haemophilus influenza. IV Zosyn and Vanco- ID managing Follow chest x-rays. Maintain vigorous aseptic care of IVs to avoid blood stream infection. PROPHYLAXIS: GI Protonix IV. DVT - mechanical VTE with SCD's. Chemical prophylaxis contraindicated at this time due to increasing subarachnoid hemorrhage and parenchymal contusion. SKIN: Warm / Dry Specialty bed ACTIVITY: Status - BR PT and OT evaluating. CASE MANAGEMENT: Consulted for assist with DC planning. Placement - disposition. No family at bedside to discuss plan of care. Discussed with RN at bedside. Pt remains critically ill in the ICU. Attestation The exam, history, and the medical decision-making described in the above note were completed with the assistance of the mid-level provider. I reviewed and agree with the findings presented. I attest that I had a [id number] encounter with the patient on the same day, and personally performed and documented my assessment and findings in the medical record. Critical care time 35 minutes. Jak Flores MD Oct 20, 2016 15:16
[2016-10-20 15:44] LABS: HEMATOCRIT 31.1 % (39.0-51.0); MEAN CELL VOLUME 104.5 FL (80.0-100.0); MEAN CORPUSCULAR HGB CONC 33.5 % (32.0-36.0); PLATELET COUNT 343 TH/MM3 (150-450); RED BLOOD COUNT 2.97 MIL/MM3 (4.50-5.90); RED CELL DISTRIBUTION WIDTH 14.8 % (11.6-17.2); REVIEW FLAG FINAL; WHITE BLOOD COUNT 15.2 TH/MM3 (4.0-11.0)
[2016-10-20 16:22] LABS: BICARBONATE 25.8 MEQ/L (21.0-32.0); MAGNESIUM 1.9 MG/DL (1.5-2.5); POTASSIUM 5.3 MEQ/L (3.5-5.1)
--- NOTE | 2016-10-20 17:01 | HHI.NSPN ---
History Chief Complaint: not verbalizing well Interval History 67-year-old male admitted 10/10/16 following a fall, inebriated, with CT scan revealing relatively small left frontal parenchymal hemorrhage. 10/11/16 patient required intubation with mechanical ventilation due to decreasing mental status, respiratory difficulty. Positive seizure activity witnessed at [facility]. 10/13/16: Remains intubated, sedated. No definite seizure activity reported 10/15/16: Remains intubated and sedated. 10/17/16: Tracheostomy today. Remains on ventilator, sedated on propofol 10/20/16: Tracheostomy and PEG tube in place. Remains on ventilator. More responsive today. Exam Results Vital Signs Date Time Temp Pulse Resp B/P Pulse Ox O2 Delivery O2 Flow Rate FiO2 10/20/16 16:56 40 10/20/16 14:00 75 10/20/16 12:16 14 10/20/16 12:00 98.3 127/64 96 10/20/16 11:38 T-piece Intake and Output 10/19/16 10/19/16 10/19/16 07:59 15:59 23:59 Intake Total 642 ml 608 ml 400 ml Output Total 600 ml 1425 ml 725 ml Balance 42 ml -817 ml -325 ml Physical Examination Tracheostomy in place Mild to moderate eye opening to sternal rub. Pupils 2 -3 mm nonreactive. Mild oculocephalic movements Minimal intermittent grimacing deep pain Gracilis both hands with moderate strength to command Moves all extremities spontaneous with moderate strength Lab, Micro, Other Results Laboratory Tests Test 10/19/16 10/20/16 10/20/16 17:35 05:30 15:18 Nasal Screen MRSA (PCR) NEGATIVE Blood Gas Puncture Site RT RADIAL Blood Gas Patient Temperature 98.6 Blood Gas HCO3 24 mmol/L Blood Gas Base Excess 0.2 mmol/L Blood Gas Oxygen Saturation 96 % Arterial Blood pH 7.40 Arterial Blood Partial 40 mmHg Pressure CO2 Arterial Blood Partial 107 mmHg Pressure O2 Arterial Blood Oxygen Content 14.5 Vol % Arterial Blood 1.1 % Carboxyhemoglobin Arterial Blood Methemoglobin 0.6 % Blood Gas Hemoglobin 10.6 G/DL Oxygen Delivery Device VENTILATOR Blood Gas Ventilator Setting PRVC/AC Blood Gas Inspired Oxygen 40 % White Blood Count 15.2 TH/MM3 Red Blood Count 2.97 MIL/MM3 Hemoglobin 10.4 GM/DL Hematocrit 31.1 % Mean Corpuscular Volume 104.5 FL Mean Corpuscular Hemoglobin 35.0 PG Mean Corpuscular Hemoglobin 33.5 % Concent Red Cell Distribution Width 14.8 % Platelet Count 343 TH/MM3 Mean Platelet Volume 7.7 FL Sodium Level 136 MEQ/L Potassium Level 5.3 MEQ/L Chloride Level 104 MEQ/L Carbon Dioxide Level 25.8 MEQ/L Anion Gap 6 MEQ/L Blood Urea Nitrogen 24 MG/DL Creatinine 0.67 MG/DL Estimat Glomerular Filtration 119 ML/MIN Rate Random Glucose 152 MG/DL Calcium Level 8.3 MG/DL Magnesium Level 1.9 MG/DL Medical Decision Making Impression and Plan Impression: 1. Traumatic brain injury with mild increase in left primarily frontotemporal contusion and subarachnoid hemorrhage on CT scan of 10/12/16. No significant mass effect. Mild bilateral subdural hygromas. Moderate diffuse atrophy. Neurologic exam slowly improving. Better eye-opening and grasping hands to command today. Encephalopathy Plan: Continue to wean off ventilatory support as tolerated Okay for Lovenox Continue anticonvulsants-change to feeding tube Sourav Jerry MD Oct 20, 2016 17:00
[2016-10-20] MEDS: HYOSCYAMINE 0.125 MG TAB PO PRN (18:05)
[2016-10-20] MEDS: levETIRAcetam 500 MG/5 ML UDC TUBE SCH (20:13)
[2016-10-20] MEDS: PHENYTOIN SUSP 100 MG/4 ML CUP PEG SCH (20:13)
[2016-10-20] MEDS: PANTOPRAZOLE SODIUM 40 MG VIAL IV SCH (21:07)
[2016-10-21] VITALS (19 sets, daily range): BP systolic 120–188; BP diastolic 61–87; PULSE 72–83; RESP 17–26; TEMP 98.5–99.2; O2SAT 92–97
[2016-10-21] MEDS: LABETALOL HCL 100 MG/20 ML VIAL IV PUSH PRN (00:17)
[2016-10-21] MEDS: LORazepam 2 MG/ML VIAL IV PUSH PRN ×4 (01:58→23:45)
[2016-10-21] MEDS: MORPHINE SULFATE 4 MG/ML INJ IV PRN ×6 (01:59→23:45)
[2016-10-21] MEDS: hydrALAZINE HCL 20 MG/ML VIAL IV PUSH SCH ×4 (03:31→21:04)
[2016-10-21] MEDS: METOPROLOL TARTRATE 5 MG/5 ML VIAL IV PUSH SCH ×4 (03:31→21:04)
[2016-10-21 04:14] LABS: MEAN CELL VOLUME 102.9 FL (80.0-100.0); MEAN CORPUSCULAR HEMOGLOBIN 34.9 PG (27.0-34.0); MEAN CORPUSCULAR HGB CONC 33.9 % (32.0-36.0); PLATELET COUNT 350 TH/MM3 (150-450); RED BLOOD COUNT 2.82 MIL/MM3 (4.50-5.90); REVIEW FLAG FINAL; WHITE BLOOD COUNT 14.9 TH/MM3 (4.0-11.0)
[2016-10-21] MEDS: PHENYTOIN SUSP 100 MG/4 ML CUP PEG SCH ×3 (04:18→21:03)
--- NOTE | 2016-10-21 04:37 | RADRPT ---
EXAM DATE/TIME: 10/21/2016 03:52 [place] COMPARISON: CHEST SINGLE AP, October 20, 2016, 5:55. INDICATIONS : Short of breath. MEDICAL HISTORY : Unobtainable. SURGICAL HISTORY : Unobtainable. ENCOUNTER: Subsequent ACUITY: 1 week PAIN SCORE: Non-responsive. LOCATION: Bilateral chest FINDINGS: A single AP semierect view of the chest was obtained and demonstrates bilateral perihilar and bibasil ar opacities. Costophrenic angles appear blunted bilaterally. The tip of the left costophrenic angle is cut off the exam. The heart size remains enlarged. A tracheostomy tube and nasogastric tube remain in place. CONCLUSION: No significant change in the bilateral opacities. Lucio Tyler MD on October 21, 2016 at 4:34 Board Certified Radiologist. This report was verified electronically.
[2016-10-21 04:48] LABS: BICARBONATE 27.1 MEQ/L (21.0-32.0); MAGNESIUM 1.9 MG/DL (1.5-2.5); POTASSIUM 4.1 MEQ/L (3.5-5.1)
[2016-10-21] MEDS: INSULIN NovoLIN REGULAR SUPPLEMENTAL SCALE SQ SCH ×4 (05:23→21:00)
[2016-10-21 06:03] LABS: BLOOD GAS CARBOXYHEMOGLOBIN 1.4 % (0-4); BLOOD GAS HCO3 24 mmol/L (22-26); BLOOD GAS METHEMOGLOBIN 0.7 % (0-2); BLOOD GAS O2 HGB SATURATION 91 % (90-100); BLOOD GAS OXYGEN CONTENT 12.5 Vol % (12.0-20.0); BLOOD GAS PCO2 34 mmHg (38-42); BLOOD GAS PO2 66 mmHg (61-120); BLOOD GAS TOTAL HGB 9.7 G/DL (12.0-16.0); CRITICAL VALUE NO; FIO2 40 %; OXYGEN DEVICE VENTILATOR; TEMP CORR TO 98.6; VENT SETTINGS PRVC/AC
[2016-10-21 06:04] LABS: DRAW SITE LT RADIAL; NUMBER OF ARTERIAL PUNCTURES 1; STAT NO; ULNAR PULSE PRESENT
[2016-10-21] MEDS: DOCUSATE SODIUM 100 MG/10 ML UDC PO SCH ×2 (08:04→21:00)
[2016-10-21] MEDS: CHLORHEXIDINE 0.12% (ORAL KIT) 15 ML CUP MT SCH ×2 (08:04→21:04)
[2016-10-21] MEDS: levETIRAcetam 500 MG/5 ML UDC TUBE SCH ×2 (08:24→19:58)
[2016-10-21] MEDS: THIAMINE HCL 100 MG TAB PO SCH (08:24)
[2016-10-21] MEDS: POTASSIUM CHLORIDE 25 MEQ EFFERVESCENT TAB PO SCH (08:24)
[2016-10-21] MEDS: LISINOPRIL 20 MG TAB PO SCH ×2 (08:24→19:58)
[2016-10-21] MEDS: FUROSEMIDE 20 MG TAB PO SCH (08:24)
[2016-10-21] MEDS: predniSONE 10 MG TAB PO SCH ×2 (08:24→19:58)
[2016-10-21] MEDS: SODIUM CHLORIDE 0.9% FLUSH 5 ML FLUSH IVF SCH ×2 (08:24→21:05)
--- NOTE | 2016-10-21 11:05 | HHI.PR ---
Neuropsych Progress Notes/Response to Tx Contents of Sessions: Level of Consciousness Time with Patient: 15 minutes Premorbid psychological status Essentially unknown. The patient does appear to have chronic substance dependence issues, given toxicology and neuroimaging results. Maximizing acute care outcome It is recommended that the patient be monitored for emergent behavioral impulsivity as the medical condition evolves. This patients neuropathological challenges may limit their rehabilitation potential going forward, in addition to premorbid psychosocial challenges, and these challenges will require specialized therapeutic skills to maximize outcome. Anticipated Problems Ongoing areas of concern will include behavioral impulsivity, lack of insight and judgment, which may or may not be expected to improve with time and treatment. 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 Treatment Plan To be determined based on his ongoing pattern of recovery. Current [place] Level: IV Diagnosis: (1) Progress Note Narrative Patient seen in room. He was unable to be awakened. Nursing staff reported that the patient has displayed increased agitation and confusion, requiring pharmacological management. 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 I will continue to follow with you. Kareem Luther PhD Oct 21, 2016 11:05
--- NOTE | 2016-10-21 11:58 | HHI.IDPN ---
Subjective Subjective Remarks Notes reviewed D/W RN Temps ok Tolerating CPAP trials Did 5 hours T-piece yesterday, to be tried on T-piece again today Tolerating TF BP ok S/P trach 10/17 Antibiotics Rocephin Lines PIV Past Medical History Not known Allergies: Coded Allergies: Bee Sting (Verified Allergy, Severe, Anaphylaxis, 09/04/15) Codeine (Verified Allergy, Mild, SWELLING, ITCHING, 09/04/15) Objective . Vital Signs Date Time Temp Pulse Resp B/P Pulse Ox O2 Delivery O2 Flow Rate FiO2 10/21/16 11:40 94 T-piece 6.00 40 10/21/16 11:30 40 10/21/16 10:00 74 10/21/16 08:50 40 10/21/16 08:50 93 40 10/21/16 08:20 96 40 10/21/16 08:00 78 10/21/16 08:00 40 10/21/16 08:00 98.7 78 20 123/69 94 10/21/16 06:00 72 10/21/16 04:06 96 40 10/21/16 04:00 80 10/21/16 04:00 98.8 80 24 120/63 96 10/21/16 04:00 40 10/21/16 02:00 75 10/21/16 01:17 97 40 10/21/16 00:00 40 10/21/16 00:00 81 10/21/16 00:00 99.2 81 26 188/87 95 10/20/16 22:04 99 40 10/20/16 22:00 72 10/20/16 20:00 40 10/20/16 20:00 74 10/20/16 20:00 98.4 74 20 191/87 98 10/20/16 19:52 98 40 10/20/16 18:00 76 10/20/16 16:57 96 40 10/20/16 16:56 40 10/20/16 16:00 40 10/20/16 16:00 98.3 68 14 147/76 96 10/20/16 16:00 68 10/20/16 14:00 75 10/20/16 12:16 14 10/20/16 12:00 98.3 80 17 127/64 96 10/20/16 12:00 75 10/20/16 12:00 40 10/20/16 10/20/16 10/21/16 15:00 23:00 07:00 Intake Total 1025 ml 753 ml 700 ml Output Total 725 ml 525 ml 500 ml Balance 300 ml 228 ml 200 ml IV Total 404 ml 130 ml 171 ml Tube Feeding 421 ml 303 ml 229 ml Tube Irrigant 200 ml 120 ml 100 ml Other 200 ml 200 ml Output Urine Total 725 ml 525 ml 500 ml Stool Total 0 ml Tube Feeding Residual Discard 0 ml 0 ml 0 ml # Bowel Movements 0 1 1 . Laboratory Tests Test 10/20/16 10/21/16 15:18 03:41 White Blood Count 15.2 TH/MM3 14.9 TH/MM3 Red Blood Count 2.97 MIL/MM3 2.82 MIL/MM3 Hemoglobin 10.4 GM/DL 9.8 GM/DL Hematocrit 31.1 % 29.0 % Mean Corpuscular Volume 104.5 FL 102.9 FL Mean Corpuscular Hemoglobin 35.0 PG 34.9 PG Mean Corpuscular Hemoglobin 33.5 % 33.9 % Concent Red Cell Distribution Width 14.8 % 15.0 % Platelet Count 343 TH/MM3 350 TH/MM3 Mean Platelet Volume 7.7 FL 7.9 FL Laboratory Tests Test 10/20/16 10/21/16 15:18 03:41 Sodium Level 136 MEQ/L 137 MEQ/L Potassium Level 5.3 MEQ/L 4.1 MEQ/L Chloride Level 104 MEQ/L 102 MEQ/L Carbon Dioxide Level 25.8 MEQ/L 27.1 MEQ/L Anion Gap 6 MEQ/L 8 MEQ/L Blood Urea Nitrogen 24 MG/DL 22 MG/DL Creatinine 0.67 MG/DL 0.61 MG/DL Estimat Glomerular Filtration 119 ML/MIN 132 ML/MIN Rate Random Glucose 152 MG/DL 132 MG/DL Calcium Level 8.3 MG/DL 8.2 MG/DL Magnesium Level 1.9 MG/DL 1.9 MG/DL Imaging Chest X-Ray 10/21/16 06 Signed Impressions: Service Date/Time: Friday, October 21, 2016 03:52 - CONCLUSION: No significant change in the bilateral opacities. Lucio Tyler MD Chest X-Ray 10/20/16 0600 Signed Impressions: Service Date/Time: Thursday, October 20, 2016 05:55 - CONCLUSION: Mild interval increase in perihilar and bibasilar opacities most consistent with pulmonary edema. The findings could indicate congestive heart failure. Lucio Tyler MD Head CT 10/16/16599 Signed Impressions: Service Date/Time: September 04:59 - CONCLUSION: 1. Increased subdural hematoma/cystic hygroma on the left and with associated 5 mm of rightward midline shift now present. Right subdural collection unchanged. 2. Left frontal, parietal and temporal lobe parenchymal hemorrhage not significantly changed. 3. Sinus disease again noted. Willian Reynaga MD Chest X-Ray 10/16/16599 Signed Impressions: Service Date/Time: September 05:27 - CONCLUSION: No significant change. Willian Reynaga MD Pelvis X-Ray 10/10/162204 Signed Impressions: Service Date/Time: Monday, October 10, 2016 21:49 - CONCLUSION: Satisfactory trauma pelvis appearance. Willian Tavares MD Cervical Spine CT 10/10/162204 Signed Impressions: Service Date/Time: Monday, October 10, 2016 22:08 - CONCLUSION: No acute bony injury in the cervical spine Willian Tavares MD Physical Exam GENERAL: sedated, not in respiratory distress. On CPAP SKIN: Warm and dry, no generalized rash or ecchymosis. HEENT: [place] conjunctivae, no petechia or hemorrhage. No scleral icterus. No injection or drainage. NECK: Trach site ok CARDIOVASCULAR: Regular rate and rhythm without murmurs, gallops, or rubs. RESPIRATORY: Coarse breath sounds bilaterally. Decreased BS bases ABDOMEN: Distended, bowel sounds are present and normoactive. No hepato- splenomegaly, or palpable masses. No guarding. MUSCULOSKELETAL: Extremities without clubbing, cyanosis, or edema in BLE. Has edema of hands. No joint effusion, or edema noted. NEUROLOGICAL: Sedated on the vent. No Babinski or ankle clonus. PSYCH: Unable to assess LINE: PIV with no evidence of infection : Chen in place, with clear urine Assessment & Plan Remarks IMPRESSION Pneumonia, likely aspiration - initial sputum with MSSA and Hemophilus Respiratory failure, on vent since 10/11 TBI due to fall - (+) ETOH Fevers, ?new infection - temps better Leukocytosis, stable RECOMMENDATION Continue Rocephin - give 7 days - end date Oct 24 Monitor temps Monitor progress Weaning per CCM D/W Silvana Ding MD Oct 21, 2016 11:58
--- NOTE | 2016-10-21 13:14 | HHI.CCPN ---
Subjective Brief History This 64-year-old male was in a bar, fell backward from the standing or sitting position. He is brought as a priority 1 trauma alert because of the LOC, [place] coma scale was 10. Initial alcohol level was 237. The patient brought on a spinal board with C-collar in place. Patient underwent CT scan of the head which revealed left fronto parietal areas of hemorrhage and chronic encephalomalacia. Patient was initially placed in the ICU for observation, but then developed seizures. The CT of the brain has worsened and patient's inability to clear secretions lead to hypoxemia and tachypnea requiring intubation. The patient remains mechanically ventilated. PMHx: ETOH abuse, HTN, COPD. Cardiomegly INJURIES: LEFT fronto-temporal contusion, 2 cm. 24 Hour Review/Hospital Course 10/11/2016 No acute events overnight. Patient has remained lethargic. 10/12/16 Patient developed seizures and the repeat CAT scan revealed some more prominent the evolving hemorrhage of the left temporoparietal area commensurate with patient's decreased level of consciousness Inability to clear secretions in combination of decreased level of consciousness with seizures necessitates intubation and currently patient is intubated and ventilated Great care by Dr. Davis throughout the night 10/13/16 Patient remains on the ventilator No more seizures Pupils equal and reactive EEG was negative for repeated seizures 10/14/16 Patient doing well at this time No more seizures Sedation indication patient moves all 4 extremities however left weaker than the right which is consistent with right frontoparietal hemorrhage and contusion Once neurologic function is sufficiently improved and patient can maintain the airway, he will be weaned to extubate 10/15/2016 No seizure activity noted. Remains on Keppra and Dilantin. Pt with a positive sputum culture growing staph aureus and Haemophilus influenza. ID consulted. Continues with fevers. Copious respiratory secretions, preventing CPAP trial today. Added Levsin for his secretion control 10/16/2016 CT of the head today displays increased SDH on the LEFT. We'll plan for trach placement tomorrow, in light of increasing subdural hematoma status, and increasing respiratory secretions. 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 We will try daily. Patient tolerated trach collar for almost 5-1/2 hours yesterday. We will continue with daily trach collar trials for as long as the patient can tolerate. (Patient can't rest on CPAP) (Kiya Sinclair) Objective Vital Signs Date Time Temp Pulse Resp B/P Pulse Ox O2 Delivery O2 Flow Rate FiO2 10/21/16 12:00 77 10/21/16 12:00 40 10/21/16 12:00 98.5 26 131/64 92 10/21/16 11:40 T-piece 6.00 Intake and Output 10/20/16 10/20/16 10/20/16 07:59 15:59 23:59 Intake Total 777 ml 1025 ml 753 ml Output Total 325 ml 725 ml 525 ml Balance 452 ml 300 ml 228 ml (Kiya Sinclair) Result Diagram: 10/21/16 0341 10/21/16 0341 Other Results Laboratory Tests Test 10/21/16 05:50 Blood Gas Puncture Site LT RADIAL Blood Gas Patient Temperature 98.6 Blood Gas HCO3 24 mmol/L (22-26) Blood Gas Base Excess 1.0 mmol/L (-2-2) Blood Gas Oxygen Saturation 91 % (90-100) Arterial Blood pH 7.47 (7.380-7.420) Arterial Blood Partial 34 mmHg (38-42) Pressure CO2 Arterial Blood Partial 66 mmHg Pressure O2 (61-120) Arterial Blood Oxygen Content 12.5 Vol % (12.0-20.0) Arterial Blood 1.4 % (0-4) Carboxyhemoglobin Arterial Blood Methemoglobin 0.7 % (0-2) Blood Gas Hemoglobin 9.7 G/DL (12.0-16.0) Oxygen Delivery Device VENTILATOR Blood Gas Ventilator Setting PRVC/AC Blood Gas Inspired Oxygen 40 % Imaging Last 24 hours Impressions Chest X-Ray 10/21/16 0600 Signed Impressions: Service Date/Time: Friday, October 21, 2016 03:52 - CONCLUSION: No significant change in the bilateral opacities. Lucio Tyler MD Objective Remarks GENERAL: This is a 65-year-old male patient mechanically ventilated in bed. SKIN: Warm and dry. HEAD: Atraumatic. Normocephalic. EYES: PERRLA ENT: Right naris NG tube in place. No nasal bleeding or discharge. Mucous membranes pink and moist. NECK: Trach in place. Trachea midline. No JVD. CARDIOVASCULAR: Regular rate and rhythm. RESPIRATORY: No accessory muscle use. Lungs are clear to auscultation. Breath sounds equal bilaterally. No distress or dyspnea. GASTROINTESTINAL: BS + x 4 quads. Abdomen soft, non-tender, nondistended. MUSCULOSKELETAL: Extremities without cyanosis, or edema. + peripheral pulses x 4 extremities. Warm with good capillary refill and sensation. MAEW. NEUROLOGICAL: Lethargic. (Kiya Sinclair) Urinary Catheter Assessment Urinary Catheter: Yes Assessment to: Continue Chen insert reason: Measure Accurate Output Date of Insertion: Oct 10, 2016 (Kiya Sinclair) Vascular Central Line Catheter Vascular Central Line Catheter: No (Kiya Sinclair) Assessment and Plan Plan YOMBA SHOSHONE: Patient fell backwards at a bar. +LOC. + ETOH = 237, GCS 14 on arrival. Patient sustained a subdural hematoma and due to the development of seizure activity, he was intubated and mechanically ventilated. INJURIES: LEFT fronto-temporal contusion, 2 cm. 10/17/2016: TR CARLY ASSESSMENT AND PLAN: NEUROLOGICAL: Patient is lethargic, but moves all extremities spontaneously, occasionally to command Provide anesthesia for comfort and pain. [place] by mouth. Monitor for seizures, on Keppra and Dilantin. Ativan PRN HOB elevated 30 degrees Positive peripheral pulses times all 4 extremities Neurology and Neurosurgery following CARDIOVASCULAR: HR = sinus rhythm. Heart rate equals 74-80 BP 131/64 PO Lisinopril every 12 hours. Lopressor IV every 6 hours scheduled, and Hydralazine IV scheduled every 6 hours. Daily Lasix 20 mg (with Potassium 20 MEQ daily) Follow CMP Electrolyte protocol in place RESPIRATORY: Vent settings: On CPAP today 40% / 5 / +5 Trach collar trial at FiO2 40% will be attempted today for as long as the patient can tolerate. Trach collar trials will continue every day. Monitor for hypoxemia Increased respiratory secretions. Levsin PRN Pulmonary toilet L&S as needed. Prednisone 10mg PO BID for history of COPD Bronchodilators - Duonebs every 2 hours PRN Sputum culture from 09/12 - positive for staph aureus and Haemophilus influenza. - Rocephin IV Infectious disease has been consult for assistance in this case. GASTROINTESTINAL: Diet tolerating TF Jevity at goal Bowel regimen Simon, MOM. LBM 10/20 GI consulted for PEG placement. RENAL / URINARY: I&O + 728 BUN / creat 22 / 0.[address] to bedside drainage bag. ENDOCRINE: BGM 132-[address] HEMATOLOGY: H&H 9.8 / 29.0 PLT 350 Continue to monitor for signs and symptoms of bleeding Transfuse for < 7.0 INFECTIOUS DISEASE: Follow CBC WBC - 14.9 Afebrile Administer antipyretics for temp as needed. BC are negative x 5 days. Sputum culture on 10/12 - positive for staph aureus and Haemophilus influenza. ABX: Rocephin IV Follow Chest x-rays. Maintain vigorous aseptic care of IVs to avoid blood stream infection. PROPHYLAXIS: GI Protonix IV. DVT - mechanical VTE with SCD's. Chemical prophylaxis contraindicated at this time due to increasing subarachnoid hemorrhage and parenchymal contusion. SKIN: Warm / Dry Specialty bed ACTIVITY: Status - BR PT and OT evaluating. CASE MANAGEMENT: Consulted for assist with DC planning. Placement - disposition. No family at bedside to discuss plan of care. Discussed with RN at bedside. Pt remains critically ill in the ICU. Trauma surgery team will see and evaluate patient daily and coordinate treatment plan. (Kiya Sinclair) Attestation The exam, history, and the medical decision-making described in the above note were completed with the assistance of the mid-level provider. I reviewed and agree with the findings presented. I attest that I had a [id number] encounter with the patient on the same day, and personally performed and documented my assessment and findings in the medical record. Critical care time 40 minutes. (Jak Flores MD) Kiya Sinclair Oct 21, 2016 13:14 Jak Flores MD Oct 23, 2016 10:38
[2016-10-21] MEDS: cefTRIAXone INJ 2,000 MG in SODIUM CHLORIDE 0.9% INJ 100 ML IV SCH (14:24)
--- NOTE | 2016-10-21 15:34 | HHI.GIFU ---
Subjective Remarks Patient is more awake on the vent, tolerating TF okay (Nikolas,Jason CODER OPERATOR) Objective Vitals I&O Vital Signs Date Time Temp Pulse Resp B/P Pulse Ox O2 Delivery O2 Flow Rate FiO2 10/21/16 14:00 76 10/21/16 12:00 77 10/21/16 12:00 40 10/21/16 12:00 98.5 79 26 131/64 92 10/21/16 11:40 94 T-piece 6.00 40 10/21/16 11:30 40 10/21/16 10:00 74 10/21/16 08:50 40 10/21/16 08:50 93 40 10/21/16 08:20 96 40 10/21/16 08:00 78 10/21/16 08:00 40 10/21/16 08:00 98.7 78 20 123/69 94 10/21/16 06:00 72 10/21/16 04:06 96 40 10/21/16 04:00 80 10/21/16 04:00 98.8 80 24 120/63 96 10/21/16 04:00 40 10/21/16 02:00 75 10/21/16 01:17 97 40 10/21/16 00:00 40 10/21/16 00:00 81 10/21/16 00:00 99.2 81 26 188/87 95 10/20/16 22:04 99 40 10/20/16 22:00 72 10/20/16 20:00 40 10/20/16 20:00 74 10/20/16 20:00 98.4 74 20 191/87 98 10/20/16 19:52 98 40 10/20/16 18:00 76 10/20/16 16:57 96 40 10/20/16 16:56 40 10/20/16 16:00 40 10/20/16 16:00 98.3 68 14 147/76 96 10/20/16 16:00 68 I/O 10/20/16 10/20/16 10/20/16 10/21/16 10/21/16 10/21/16 06:59 14:59 22:59 06:59 14:59 22:59 Intake Total 777 ml 1025 ml 753 ml 700 ml 580 ml Output Total 325 ml 725 ml 525 ml 500 ml 750 ml Balance 452 ml 300 ml 228 ml 200 ml -170 ml IV Total 298 ml 404 ml 130 ml 171 ml 142 ml Tube Feeding 419 ml 421 ml 303 ml 229 ml 438 ml Tube Irrigant 60 ml 200 ml 120 ml 100 ml Other 200 ml 200 ml Output Urine Total 325 ml 725 ml 525 ml 500 ml 750 ml Stool Total 0 ml 0 ml Tube Feeding Residual Discard 0 ml 0 ml 0 ml 0 ml 0 ml # Bowel Movements 0 1 1 0 Laboratory Laboratory Tests Test 10/21/16 10/21/16 03:41 05:50 White Blood Count 14.9 Red Blood Count 2.82 Hemoglobin 9.8 Hematocrit 29.0 Mean Corpuscular Volume 102.9 Mean Corpuscular Hemoglobin 34.9 Mean Corpuscular Hemoglobin 33.9 Concent Red Cell Distribution Width 15.0 Platelet Count 350 Mean Platelet Volume 7.9 Sodium Level 137 Potassium Level 4.1 Chloride Level 102 Carbon Dioxide Level 27.1 Anion Gap 8 Blood Urea Nitrogen 22 Creatinine 0.61 Estimat Glomerular Filtration 132 Rate Random Glucose 132 Calcium Level 8.2 Magnesium Level 1.9 Blood Gas Puncture Site LT RADIAL Blood Gas Patient Temperature 98.6 Blood Gas HCO3 24 Blood Gas Base Excess 1.0 Blood Gas Oxygen Saturation 91 Arterial Blood pH 7.47 Arterial Blood Partial 34 Pressure CO2 Arterial Blood Partial 66 Pressure O2 Arterial Blood Oxygen Content 12.5 Arterial Blood 1.4 Carboxyhemoglobin Arterial Blood Methemoglobin 0.7 Blood Gas Hemoglobin 9.7 Oxygen Delivery Device VENTILATOR Blood Gas Ventilator Setting PRVC/AC Blood Gas Inspired Oxygen 40 Physical Exam HEENT: normocephalic; atraumatic; no jaundice. NECK: Neck is supple, no JVD, no lymphadenopathy. CHEST: Chest is clear to auscultation and percussion. CARDIAC: Regular rate and rhythm with no murmur gallop or rubs. ABDOMEN: Soft, nondistended, nontender; no hepatosplenomegaly; bowel sounds are present in all four quadrants. EXTREMITIES: No clubbing, cyanosis, or edema. SKIN: Normal; no rash; no jaundice. PERMASTONE INSTALLER: on the vent (Jason Connor) Assessment and Plan Plan - Dysphagia, FEN- This is a 65 year male was in a bar, fell backward from the standing or sitting position. He is brought as a trauma alert because of the LOC, [place] coma scale was 10. Initial alcohol level was 237. The patient brought on a spinal board with C-collar in place. Patient underwent CT scan of the head which revealed left fronto parietal areas of hemorrhage and chronic encephalomalacia. Patient was initially placed in the ICU for observation, but then developed seizures. The CT of the brain has worsened and patient's inability to clear secretions lead to hypoxemia and tachypnea requiring intubation. The patient remains mechanically ventilated. He currently has a trach in place and require half-way feeding. GI services have been consulted for PEG tube placement. HPI was obtained from EMR, and nurse. Per nurse, patient is homeless, no family identified, the hospital in process of obtaining guardian ship, but for now, no consents for PEG tube. He is receiving TF via NGT and tolerating well. Plan: - TF per dietary recommendations - Unfortunately, still no consents - Notify GI once able to obtain consents - Supportive care - Patient seen and examined by Dr. Oneill and myself and this note is written on his behalf. (Jason Connor) Physician Comments Seen and examined, plan as above, PEG tube once consent obtained. (Bk Oneill MD) Jason Connor Oct 21, 2016 15:34 Bk Oneill MD Oct 21, 2016 16:29
[2016-10-21] MEDS: PANTOPRAZOLE SODIUM 40 MG VIAL IV SCH (21:04)
[2016-10-21] MEDS: HYOSCYAMINE 0.125 MG TAB PO PRN (21:04)
[2016-10-22] VITALS (17 sets, daily range): BP systolic 124–180; BP diastolic 59–88; PULSE 72–101; RESP 15–28; TEMP 98.4–99.1; O2SAT 95–97
[2016-10-22] MEDS: PHENYTOIN SUSP 100 MG/4 ML CUP PEG SCH ×3 (04:31→20:22)
[2016-10-22] MEDS: hydrALAZINE HCL 20 MG/ML VIAL IV PUSH SCH (04:31)
[2016-10-22] MEDS: METOPROLOL TARTRATE 5 MG/5 ML VIAL IV PUSH SCH (04:31)
[2016-10-22] MEDS: MORPHINE SULFATE 4 MG/ML INJ IV PRN ×2 (04:31→08:51)
[2016-10-22 05:26] LABS: BICARBONATE 27.3 MEQ/L (21.0-32.0); MAGNESIUM 1.9 MG/DL (1.5-2.5); POTASSIUM 4.2 MEQ/L (3.5-5.1)
--- NOTE | 2016-10-22 05:27 | RADRPT ---
EXAM DATE/TIME: 10/22/2016 04:46 [facility] COMPARISON: CHEST SINGLE AP, October 21, 2016, 3:52. INDICATIONS : Shortness of breath. MEDICAL HISTORY : Unobtainable. SURGICAL HISTORY : Unobtainable. ENCOUNTER: Subsequent ACUITY: 1 week PAIN SCORE: Non-responsive. LOCATION: Bilateral chest FINDINGS: A single AP semierect view of the chest was obtained and again demonstrates a tracheostomy tube in pl jan. A nasogastric tube is again noted coursing through the esophagus into the stomach. The heart siz e remains mildly enlarged. The lungs are better aerated with decreased opacity in the perihilar regio ns and both lung bases. The left costophrenic angle remains blunted consistent with small effusion. T here are multiple overlying electrocardiogram leads. CONCLUSION: 1. Improved aeration with interval decrease in perihilar and bibasilar opacity. 2. Small left effusion. Lucio Tyelr MD on October 22, 2016 at 5:25 Board Certified Radiologist. This report was verified electronically.
[2016-10-22 06:29] LABS: HEMATOCRIT 27.3 % (39.0-51.0); MEAN CORPUSCULAR HEMOGLOBIN 35.9 PG (27.0-34.0); MEAN CORPUSCULAR HGB CONC 34.2 % (32.0-36.0); PLATELET COUNT 356 TH/MM3 (150-450); RED CELL DISTRIBUTION WIDTH 14.7 % (11.6-17.2); REVIEW FLAG FINAL; WHITE BLOOD COUNT 16.9 TH/MM3 (4.0-11.0)
[2016-10-22] MEDS: INSULIN NovoLIN REGULAR SUPPLEMENTAL SCALE SQ SCH ×4 (07:00→20:27)
[2016-10-22] MEDS: CHLORHEXIDINE 0.12% (ORAL KIT) 15 ML CUP MT SCH ×2 (08:39→20:23)
[2016-10-22] MEDS: SODIUM CHLORIDE 0.9% FLUSH 5 ML FLUSH IVF SCH ×2 (08:48→20:23)
[2016-10-22] MEDS: levETIRAcetam 500 MG/5 ML UDC TUBE SCH ×2 (08:48→20:23)
[2016-10-22] MEDS: DOCUSATE SODIUM 100 MG/10 ML UDC PO SCH (08:48)
[2016-10-22] MEDS: THIAMINE HCL 100 MG TAB PO SCH (08:48)
[2016-10-22] MEDS: LISINOPRIL 20 MG TAB PO SCH ×2 (08:48→20:22)
[2016-10-22] MEDS: predniSONE 10 MG TAB PO SCH ×2 (08:49→20:22)
[2016-10-22] MEDS: FAMOTIDINE 20 MG TAB PO SCH ×2 (08:49→20:22)
[2016-10-22] MEDS: POTASSIUM CHLORIDE 25 MEQ EFFERVESCENT TAB PO SCH (08:49)
[2016-10-22] MEDS: HYOSCYAMINE 0.125 MG TAB PO PRN ×3 (08:49→20:22)
[2016-10-22] MEDS: FUROSEMIDE 20 MG TAB PO SCH (08:49)
--- NOTE | 2016-10-22 10:17 | HHI.CCPN ---
Subjective Brief History This 64-year-old male was in a bar, fell backward from the standing or sitting position. He is brought as a priority 1 trauma alert because of the LOC, [place] coma scale was 10. Initial alcohol level was 237. The patient brought on a spinal board with C-collar in place. Patient underwent CT scan of the head which revealed left fronto parietal areas of hemorrhage and chronic encephalomalacia. Patient was initially placed in the ICU for observation, but then developed seizures. The CT of the brain has worsened and patient's inability to clear secretions lead to hypoxemia and tachypnea requiring intubation. The patient remains mechanically ventilated. PMHx: ETOH abuse, HTN, COPD. Cardiomegly INJURIES: LEFT fronto-temporal contusion, 2 cm. 24 Hour Review/Hospital Course 10/11/2016 No acute events overnight. Patient has remained lethargic. 10/12/16 Patient developed seizures and the repeat CAT scan revealed some more prominent the evolving hemorrhage of the left temporoparietal area commensurate with patient's decreased level of consciousness Inability to clear secretions in combination of decreased level of consciousness with seizures necessitates intubation and currently patient is intubated and ventilated Great care by Dr. Davis throughout the night 10/13/16 Patient remains on the ventilator No more seizures Pupils equal and reactive EEG was negative for repeated seizures 10/14/16 Patient doing well at this time No more seizures Sedation indication patient moves all 4 extremities however left weaker than the right which is consistent with right frontoparietal hemorrhage and contusion Once neurologic function is sufficiently improved and patient can maintain the airway, he will be weaned to extubate 10/15/2016 No seizure activity noted. Remains on Keppra and Dilantin. Pt with a positive sputum culture growing staph aureus and Haemophilus influenza. ID consulted. Continues with fevers. Copious respiratory secretions, preventing CPAP trial today. Added Levsin for his secretion control 10/16/2016 CT of the head today displays increased SDH on the LEFT. We'll plan for trach placement tomorrow, in light of increasing subdural hematoma status, and increasing respiratory secretions. 10/17/2016 No acute events overnight Bedside trach today 10/18/2016 S/P OIL SPREADER OPERATOR placement Tolerating CPAP Not following commands 10/19/16 Patient slightly more awake but doesn't follow commands opens eyes spontaneously Tracheostomy clean and dry Patient was on CPAP through the day and then placed on the ventilator through the night Will likely give him another day of CPAP and then place him on trach collar tomorrow, from the ventilator 10/20/16 Neurologically patient is doing better following some commands and waking up He is doing well on CPAP and has been moved to the trach collar and will be from the ventilator successfully 10/21/2016 Patient failed his swallow eval. We will try daily. Patient tolerated trach collar for almost 5-1/2 hours yesterday. We will continue with daily trach collar trials for as long as the patient can tolerate. 10/22/2016 Tolerated CPAP overnight. OIL SPREADER OPERATOR collar today as tolerated. Following commands. (Zaire Jessica) Objective Vital Signs Date Time Temp Pulse Resp B/P Pulse Ox O2 Delivery O2 Flow Rate FiO2 10/22/16 08:56 20 10/22/16 08:04 96 40 10/22/16 08:00 76 10/22/16 08:00 98.9 135/65 10/21/16 11:40 T-piece 6.00 Intake and Output 10/21/16 10/21/16 10/21/16 07:59 15:59 23:59 Intake Total 700 ml 580 ml 833 ml Output Total 500 ml 750 ml 700 ml Balance 200 ml -170 ml 133 ml (Zaire Jessica) Result Diagram: 10/22/16 0422 10/22/16 0422 Imaging Last 24 hours Impressions Chest X-Ray 10/22/16 0600 Signed Impressions: Service Date/Time: Saturday, October 22, 2016 04:46 - CONCLUSION: 1. Improved aeration with interval decrease in perihilar and bibasilar opacity. 2. Small left effusion. Lucio Tyler MD (Zaire Jessica) Exam RHEUMATOLOGY NURSE GENERAL: 65-year-old well nourished, well-developed male lying in bed. SKIN: Warm and dry. HEAD: Normocephalic. EYES: PERRL ENT: Right nare NGT in place. No nasal bleeding or discharge. Mucous membranes pink and moist. NECK: OIL SPREADER OPERATOR in place secured to vent. Trachea midline. No JVD. CARDIOVASCULAR: Regular rate and rhythm. RESPIRATORY: No accessory muscle use. Lungs are clear to auscultation, diminished LLL. No distress or dyspnea. GASTROINTESTINAL: Abdomen firm, non-tender, round. + BS. F/C draining clear david urine to bedside bag. MUSCULOSKELETAL: Extremities without cyanosis, 2+ BUE edema. + peripheral pulses x 4 extremities. MAEW. NEUROLOGICAL: Alert, following commands. (Zaire Jessica NATALIA) Urinary Catheter Assessment Date of Insertion: Oct 10, 2016 (Zaire Jessica Karri MANAGING PARTNER) Assessment and Plan Plan CHILKAT: Patient fell backwards at a bar. +LOC. + ETOH = 237, GCS 14 on arrival. Patient sustained a subdural hematoma and due to the development of seizure activity, he was intubated and mechanically ventilated. INJURIES: LEFT fronto-temporal contusion, 2 cm. 10/17/2016: OIL SPREADER OPERATOR ASSESSMENT AND PLAN: NEUROLOGICAL: Provide anesthesia for comfort and pain. [place] PO. Monitor for seizures, on Keppra and Dilantin. Ativan PRN HOB elevated 30 degrees Neurology and Neurosurgery following CARDIOVASCULAR: HR = sinus rhythm. SBP- 120-150mm Hg PO Lisinopril, Hydralazine and Lopressor changed to PO. PRN Labetolol for SBP> 180 Daily Lasix 20 mg (with Potassium 20 MEQ daily) Follow CMP Electrolyte protocol in place RESPIRATORY: Vent settings: On CPAP overnight 40% / 5 / +5 Trach collar daily as tolerated Monitor for hypoxemia Increased respiratory secretions. Levsin PRN Pulmonary toilet L&S as needed. Prednisone 10mg PO BID for history of COPD Bronchodilators - Duonebs PRN Sputum culture from 09/12 - positive for staph aureus and Haemophilus influenza. - Rocephin IV Infectious disease following GASTROINTESTINAL: Diet tolerating TF Jevity at goal Bowel regimen Colace, MOM. LBM 10/22 GI consulted for PEG placement. RENAL / URINARY: I&O + 35 BUN / creat stable Chen catheter in place to bedside drainage bag. ENDOCRINE: BGM 130-[address] HEMATOLOGY: H&H 9.4/27.3 PLT 356 Continue to monitor for signs and symptoms of bleeding Transfuse for < 7.0 INFECTIOUS DISEASE: Follow CBC WBC - 16.9 Low grade fevers Administer antipyretics for temp as needed. BC are negative from 10/15 Sputum culture on 10/12 - positive for staph aureus and Haemophilus influenza. ABX: Rocephin IV Follow Chest x-rays. Maintain vigorous aseptic care of IVs to avoid blood stream infection. PROPHYLAXIS: GI Famotidine PO DVT - SCD's. Chemical prophylaxis contraindicated at this time due to increasing subarachnoid hemorrhage and parenchymal contusion. SKIN: Warm / Dry Specialty bed ACTIVITY: Status - OOB with assist OOB to cardiac chair daily PT and OT evaluating. CASE MANAGEMENT: Consulted for assist with DC planning. Unable to locate next of kin. Multiple attempts made have been unsuccessful. Patient is homeless and does not have health insurance. No family at bedside to discuss plan of care. Discussed with RN at bedside. Pt remains critically ill in the ICU. (Zaire Jessica) Attestation Patient slowly improving every day Neurologic status and final outcome is still questionable Patient's tracheostomy allowing for ventilatory weaning and separation from the vent The exam, history, and the medical decision-making described in the above note were completed with the assistance of the mid-level provider. I reviewed and agree with the findings presented. I attest that I had a [id number] encounter with the patient on the same day, and personally performed and documented my assessment and findings in the medical record. Critical care time 40 minutes. (Jak Flores MD) Zaire Jessica Oct 22, 2016 10:16 Jak Flores MD Oct 26, 2016 02:04
--- NOTE | 2016-10-22 10:19 | HHI.IDPN ---
Subjective Subjective Remarks Notes reviewed Temps ok Tolerating T-piece trials Tolerating TF BP ok S/P trach 10/17 Antibiotics Rocephin Lines PIV Past Medical History Not known Allergies: Coded Allergies: Bee Sting (Verified Allergy, Severe, Anaphylaxis, 09/04/15) Codeine (Verified Allergy, Mild, SWELLING, ITCHING, 09/04/15) Objective . Vital Signs Date Time Temp Pulse Resp B/P Pulse Ox O2 Delivery O2 Flow Rate FiO2 10/22/16 08:56 20 10/22/16 08:04 96 40 10/22/16 08:00 76 10/22/16 08:00 98.9 88 20 135/65 96 10/22/16 08:00 40 10/22/16 06:00 86 10/22/16 04:53 97 40 10/22/16 04:00 99.1 86 16 152/72 96 10/22/16 04:00 86 10/22/16 04:00 40 10/22/16 02:00 87 10/22/16 01:10 97 40 10/22/16 00:00 90 10/22/16 00:00 40 10/22/16 00:00 99.1 90 18 124/59 95 10/21/16 22:04 97 40 10/21/16 22:00 83 10/21/16 20:00 40 10/21/16 20:00 82 10/21/16 20:00 98.9 82 21 143/67 96 10/21/16 19:35 95 40 10/21/16 19:00 40 10/21/16 18:00 81 10/21/16 16:00 78 10/21/16 16:00 98.8 80 17 134/61 95 10/21/16 16:00 40 10/21/16 14:00 76 10/21/16 12:00 77 10/21/16 12:00 40 10/21/16 12:00 98.5 79 26 131/64 92 10/21/16 11:40 94 T-piece 6.00 40 10/21/16 11:30 40 10/21/16 10/21/16 10/22/16 15:00 23:00 07:00 Intake Total 580 ml 833 ml 722 ml Output Total 750 ml 700 ml 650 ml Balance -170 ml 133 ml 72 ml IV Total 142 ml 169 ml 155 ml Tube Feeding 438 ml 344 ml 247 ml Tube Irrigant 120 ml 120 ml Other 200 ml 200 ml Output Urine Total 750 ml 700 ml 650 ml Stool Total 0 ml Tube Feeding Residual Discard 0 ml 0 ml 0 ml # Bowel Movements 0 2 . Laboratory Tests Test 10/20/16 10/21/16 10/22/16 15:18 03:41 04:22 White Blood Count 15.2 TH/MM3 14.9 TH/MM3 16.9 TH/MM3 Red Blood Count 2.97 MIL/MM3 2.82 MIL/MM3 2.60 MIL/MM3 Hemoglobin 10.4 GM/DL 9.8 GM/DL 9.4 GM/DL Hematocrit 31.1 % 29.0 % 27.3 % Mean Corpuscular Volume 104.5 FL 102.9 FL 105.0 FL Mean Corpuscular Hemoglobin 35.0 PG 34.9 PG 35.9 PG Mean Corpuscular Hemoglobin 33.5 % 33.9 % 34.2 % Concent Red Cell Distribution Width 14.8 % 15.0 % 14.7 % Platelet Count 343 TH/MM3 350 TH/MM3 356 TH/MM3 Mean Platelet Volume 7.7 FL 7.9 FL 8.3 FL Laboratory Tests Test 10/20/16 10/21/16 10/22/16 15:18 03:41 04:22 Sodium Level 136 MEQ/L 137 MEQ/L 135 MEQ/L Potassium Level 5.3 MEQ/L 4.1 MEQ/L 4.2 MEQ/L Chloride Level 104 MEQ/L 102 MEQ/L 101 MEQ/L Carbon Dioxide Level 25.8 MEQ/L 27.1 MEQ/L 27.3 MEQ/L Anion Gap 6 MEQ/L 8 MEQ/L 7 MEQ/L Blood Urea Nitrogen 24 MG/DL 22 MG/DL 20 MG/DL Creatinine 0.67 MG/DL 0.61 MG/DL 0.69 MG/DL Estimat Glomerular Filtration 119 ML/MIN 132 ML/MIN 115 ML/MIN Rate Random Glucose 152 MG/DL 132 MG/DL 127 MG/DL Calcium Level 8.3 MG/DL 8.2 MG/DL 8.4 MG/DL Magnesium Level 1.9 MG/DL 1.9 MG/DL 1.9 MG/DL Imaging Chest X-Ray 10/21/16 0600 Signed Impressions: Service Date/Time: Friday, October 21, 2016 03:52 - CONCLUSION: No significant change in the bilateral opacities. Lucio Tyler MD Chest X-Ray 10/20/16599 Signed Impressions: Service Date/Time: Thursday, October 20, 2016 05:55 - CONCLUSION: Mild interval increase in perihilar and bibasilar opacities most consistent with pulmonary edema. The findings could indicate congestive heart failure. Lucio Tyler MD Head CT 10/16/16599 Signed Impressions: Service Date/Time: September 04:59 - CONCLUSION: 1. Increased subdural hematoma/cystic hygroma on the left and with associated 5 mm of rightward midline shift now present. Right subdural collection unchanged. 2. Left frontal, parietal and temporal lobe parenchymal hemorrhage not significantly changed. 3. Sinus disease again noted. Willian Reynaga MD Chest X-Ray 10/16/16599 Signed Impressions: Service Date/Time: September 05:27 - CONCLUSION: No significant change. Willian Reynaga MD Pelvis X-Ray 10/10/162204 Signed Impressions: Service Date/Time: Monday, October 10, 2016 21:49 - CONCLUSION: Satisfactory trauma pelvis appearance. Willian Tavares MD Cervical Spine CT 10/10/162204 Signed Impressions: Service Date/Time: Monday, October 10, 2016 22:08 - CONCLUSION: No acute bony injury in the cervical spine Willian Tavares MD Physical Exam GENERAL: not in respiratory distress. On CPAP SKIN: Warm and dry, no generalized rash HEENT: [place] conjunctivae. No scleral icterus. No injection or drainage. NECK: Trach site ok CARDIOVASCULAR: Regular rate and rhythm without murmurs, gallops, or rubs. RESPIRATORY: Coarse breath sounds bilaterally. Decreased BS bases ABDOMEN: Distended, bowel sounds are present and normoactive. No guarding. MUSCULOSKELETAL: Extremities without clubbing, cyanosis, or edema in BLE. Has edema of hands. NEUROLOGICAL: Sedated on the vent. No Babinski or ankle clonus. PSYCH: Unable to assess LINE: PIV with no evidence of infection : Chen in place, with clear urine Assessment & Plan Remarks IMPRESSION Pneumonia, likely aspiration - initial sputum with MSSA and Hemophilus Respiratory failure, on vent since 12/17 TBI due to fall - (+) ETOH Fevers, ?new infection - temps better Leukocytosis, stable RECOMMENDATION Continue Rocephin - give 7 days - end date Oct 24 Monitor progress Weaning per [facility] Silvana Antony MD Oct 22, 2016 10:19
--- NOTE | 2016-10-22 10:33 | HHI.GIFU ---
Subjective Remarks Up in chair. Does not follow commands. Nurse reports that case management is working on getting court appointed guardian. (Ariana Ding) Objective Vitals I&O Vital Signs Date Time Temp Pulse Resp B/P Pulse Ox O2 Delivery O2 Flow Rate FiO2 10/22/16 08:56 20 10/22/16 08:04 96 40 10/22/16 08:00 76 10/22/16 08:00 98.9 88 20 135/65 96 10/22/16 08:00 40 10/22/16 06:00 86 10/22/16 04:53 97 40 10/22/16 04:00 99.1 86 16 152/72 96 10/22/16 04:00 86 10/22/16 04:00 40 10/22/16 02:00 87 10/22/16 01:10 97 40 10/22/16 00:00 90 10/22/16 00:00 40 10/22/16 00:00 99.1 90 18 124/59 95 10/21/16 22:04 97 40 10/21/16 22:00 83 10/21/16 20:00 40 10/21/16 20:00 82 10/21/16 20:00 98.9 82 21 143/67 96 10/21/16 19:35 95 40 10/21/16 19:00 40 10/21/16 18:00 81 10/21/16 16:00 78 10/21/16 16:00 98.8 80 17 134/61 95 10/21/16 16:00 40 10/21/16 14:00 76 10/21/16 12:00 77 10/21/16 12:00 40 10/21/16 12:00 98.5 79 26 131/64 92 10/21/16 11:40 94 T-piece 6.00 40 10/21/16 11:30 40 I/O 10/21/16 10/21/16 10/21/16 10/22/16 10/22/16 10/22/16 06:59 14:59 22:59 06:59 14:59 22:59 Intake Total 700 ml 580 ml 833 ml 722 ml Output Total 500 ml 750 ml 700 ml 650 ml Balance 200 ml -170 ml 133 ml 72 ml IV Total 171 ml 142 ml 169 ml 155 ml Tube Feeding 229 ml 438 ml 344 ml 247 ml Tube Irrigant 100 ml 120 ml 120 ml Other 200 ml 200 ml 200 ml Output Urine Total 500 ml 750 ml 700 ml 650 ml Stool Total 0 ml Tube Feeding Residual Discard 0 ml 0 ml 0 ml 0 ml # Bowel Movements 1 0 2 Laboratory Laboratory Tests Test 10/22/16 04:22 White Blood Count 16.9 Red Blood Count 2.60 Hemoglobin 9.4 Hematocrit 27.3 Mean Corpuscular Volume 105.0 Mean Corpuscular Hemoglobin 35.9 Mean Corpuscular Hemoglobin 34.2 Concent Red Cell Distribution Width 14.7 Platelet Count 356 Mean Platelet Volume 8.3 Sodium Level 135 Potassium Level 4.2 Chloride Level 101 Carbon Dioxide Level 27.3 Anion Gap 7 Blood Urea Nitrogen 20 Creatinine 0.69 Estimat Glomerular Filtration 115 Rate Random Glucose 127 Calcium Level 8.4 Magnesium Level 1.9 Phenytoin (Dilantin) Level 7.2 Imaging Last Impressions Chest X-Ray 10/22/16599 Signed Impressions: Service Date/Time: Saturday, October 22, 2016 04:46 - CONCLUSION: 1. Improved aeration with interval decrease in perihilar and bibasilar opacity. 2. Small left effusion. Lucio Tyler MD Head CT 10/16/16599 Signed Impressions: Service Date/Time: September 04:59 - CONCLUSION: 1. Increased subdural hematoma/cystic hygroma on the left and with associated 5 mm of rightward midline shift now present. Right subdural collection unchanged. 2. Left frontal, parietal and temporal lobe parenchymal hemorrhage not significantly changed. 3. Sinus disease again noted. Willian Reynaga MD Pelvis X-Ray 10/10/162204 Signed Impressions: Service Date/Time: Monday, October 10, 2016 21:49 - CONCLUSION: Satisfactory trauma pelvis appearance. Willian Tavares MD Cervical Spine CT 10/10/162204 Signed Impressions: Service Date/Time: Monday, October 10, 2016 22:08 - CONCLUSION: No acute bony injury in the cervical spine Willian Tavares MD Physical Exam HEENT: Normocephalic; atraumatic; no jaundice. CHEST: Resp even/unlabored. Tbar to trach CARDIAC: RRR ABDOMEN: Soft, rounded, nontender; no hepatosplenomegaly; bowel sounds are present in all four quadrants. NGT EXTREMITIES: BUE edema. SKIN: Normal; no rash; no jaundice. TRANSPORTATION ECONOMICS TEACHER: Awake, but not following commands (Ariana Ding) Assessment and Plan Plan ASSESSMENT: - Dysphagia, FEN. GI services have been consulted for PEG tube placement. Hospital has not located any family/next of kin. CM in process of obtaining guardianship according to nurse. Tolerating TF via NGT at this time. Plan: - TF per dietary recommendations - No consents - GI will sign off for now, please reconsult once consents obtained - Patient seen and examined by Dr. Oneill and myself and this note is written on his behalf. (Ariana Ding) Physician Comments Seen and examined, plan for PEG placement after obtaining consent. (Bk Oneill MD) Ariana Ding Oct 22, 2016 10:33 Bk Oneill MD Oct 22, 2016 13:25
--- NOTE | 2016-10-22 10:37 | HHI.PR ---
Neuropsych Behavior Behavior: Moderate Frustration Tolerance/[place], Moderate Impulsive/Agitated, Severe Behavior Cognitive Cognitive: Severe: Cognitive, Attention/Concentration, Confused/Orientation, Insight/Awareness, Judgement/Problem-Solving, Memory Progress Notes/Response to Tx Contents of Sessions: Level of Consciousness, Memory Time with Patient: 15 minutes Premorbid psychological status Essentially unknown. The patient does appear to have chronic substance dependence issues, given toxicology and neuroimaging results. Maximizing acute care outcome It is recommended that the patient be monitored for emergent behavioral impulsivity as the medical condition evolves. This patients neuropathological challenges may limit their rehabilitation potential going forward, in addition to premorbid psychosocial challenges, and these challenges will require specialized therapeutic skills to maximize outcome. Anticipated Problems Ongoing areas of concern will include behavioral impulsivity, lack of insight and judgment, which may or may not be expected to improve with time and treatment. 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 Treatment Plan To be determined based on his ongoing pattern of recovery. Diagnosis: (1) Progress Note Narrative Ongoing follow-up with patient. He is alert but confused. He is oriented only to person and inconsistently follows commands. No family present to discuss ongoing progress. I will continue to follow. Kareem Luther PhD Oct 22, 2016 10:37
[2016-10-22] MEDS: hydrALAZINE HCL 10 MG TAB PO SCH ×3 (11:46→22:20)
[2016-10-22] MEDS: METOPROLOL SUCCINATE 25 MG EXTENDED RELEASE TAB PO SCH (11:50)
[2016-10-22] MEDS: cefTRIAXone INJ 2,000 MG in SODIUM CHLORIDE 0.9% INJ 100 ML IV SCH (14:03)
[2016-10-22] MEDS: LABETALOL HCL 100 MG/20 ML VIAL IV PUSH PRN ×5 (14:04→22:22)
[2016-10-22] MEDS: LORazepam 2 MG/ML VIAL IV PUSH PRN ×2 (14:08→23:30)
[2016-10-22] MEDS: MORPHINE SULFATE 4 MG/ML INJ IV PUSH PRN ×2 (20:27→23:30)
[2016-10-23] VITALS (17 sets, daily range): BP systolic 143–212; BP diastolic 68–111; PULSE 66–110; RESP 14–27; TEMP 97.7–99.1; O2SAT 88–99
[2016-10-23] MEDS: MORPHINE SULFATE 4 MG/ML INJ IV PUSH PRN ×4 (03:00→20:32)
[2016-10-23 04:09] LABS: BASOPHIL # 0.1 TH/MM3 (0-0.2); BASOPHIL % 0.5 % (0.0-2.0); EOSINOPHIL # 0.2 TH/MM3 (0-0.4); EOSINOPHIL % 1.2 % (0.0-4.0); HEMATOCRIT 29.2 % (39.0-51.0); HEMO FLAGS DIFF FINAL; LYMPH % 6.3 % (9.0-44.0); LYMPHOCYTE # 1.1 TH/MM3 (1.0-4.8); MEAN CELL VOLUME 102.1 FL (80.0-100.0); MEAN CORPUSCULAR HEMOGLOBIN 34.7 PG (27.0-34.0); MEAN CORPUSCULAR HGB CONC 33.9 % (32.0-36.0); MONO % 7.5 % (0.0-8.0); NEUT % 84.5 % (16.0-70.0); PLATELET COUNT 338 TH/MM3 (150-450); RED BLOOD COUNT 2.86 MIL/MM3 (4.50-5.90); RED CELL DISTRIBUTION WIDTH 14.7 % (11.6-17.2); WHITE BLOOD COUNT 17.8 TH/MM3 (4.0-11.0)
[2016-10-23 04:32] LABS: BICARBONATE 29.1 MEQ/L (21.0-32.0); POTASSIUM 4.4 MEQ/L (3.5-5.1)
[2016-10-23] MEDS: hydrALAZINE HCL 10 MG TAB PO SCH ×4 (04:48→23:25)
[2016-10-23] MEDS: PHENYTOIN SUSP 100 MG/4 ML CUP PEG SCH ×3 (04:48→20:30)
[2016-10-23] MEDS: INSULIN NovoLIN REGULAR SUPPLEMENTAL SCALE SQ SCH ×4 (05:54→20:31)
[2016-10-23] MEDS: levETIRAcetam 500 MG/5 ML UDC TUBE SCH ×2 (08:34→20:30)
[2016-10-23] MEDS: FAMOTIDINE 20 MG TAB PO SCH ×2 (08:34→20:29)
[2016-10-23] MEDS: CHLORHEXIDINE 0.12% (ORAL KIT) 15 ML CUP MT SCH ×2 (08:34→20:00)
[2016-10-23] MEDS: SODIUM CHLORIDE 0.9% FLUSH 5 ML FLUSH IVF SCH ×2 (08:34→20:31)
[2016-10-23] MEDS: predniSONE 10 MG TAB PO SCH ×2 (08:37→20:30)
[2016-10-23] MEDS: POTASSIUM CHLORIDE 25 MEQ EFFERVESCENT TAB PO SCH (08:37)
[2016-10-23] MEDS: FUROSEMIDE 20 MG TAB PO SCH (08:38)
[2016-10-23] MEDS: LISINOPRIL 20 MG TAB PO SCH ×2 (08:40→20:30)
[2016-10-23] MEDS: METOPROLOL SUCCINATE 25 MG EXTENDED RELEASE TAB PO SCH (08:40)
[2016-10-23] MEDS: THIAMINE HCL 100 MG TAB PO SCH (08:40)
[2016-10-23] MEDS: PROPRANOLOL HCL 10 MG TAB PO SCH ×3 (10:19→20:30)
[2016-10-23] MEDS: HYOSCYAMINE 0.125 MG TAB PO PRN ×3 (10:19→20:29)
--- NOTE | 2016-10-23 10:23 | HHI.PR ---
Neuropsych Progress Notes/Response to Tx Premorbid psychological status Essentially unknown. The patient does appear to have chronic substance dependence issues, given toxicology and neuroimaging results. Maximizing acute care outcome It is recommended that the patient be monitored for emergent behavioral impulsivity as the medical condition evolves. This patients neuropathological challenges may limit their rehabilitation potential going forward, in addition to premorbid psychosocial challenges, and these challenges will require specialized therapeutic skills to maximize outcome. Anticipated Problems Ongoing areas of concern will include behavioral impulsivity, lack of insight and judgment, which may or may not be expected to improve with time and treatment. 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 Treatment Plan To be determined based on his ongoing pattern of recovery. 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 [facility] Level: IV:Confused/Agitated-maximal assist Diagnosis: (1) Progress Note Narrative Saw patient in room. He was alert but oriented only to person. He was agitated and confused, not following greater than one-step commands. I will continue to follow with you. Kareem Luther PhD Oct 23, 2016 10:23
[2016-10-23] MEDS: LABETALOL HCL 100 MG/20 ML VIAL IV PUSH PRN ×3 (10:27→20:30)
[2016-10-23] MEDS: cefTRIAXone INJ 2,000 MG in SODIUM CHLORIDE 0.9% INJ 100 ML IV SCH (14:59)
[2016-10-23] MEDS: HALOPERIDOL 2 MG TAB PO PRN (16:18)
[2016-10-24] VITALS (16 sets, daily range): BP systolic 110–189; BP diastolic 60–96; PULSE 69–98; RESP 18–28; TEMP 97.9–99; O2SAT 90–97
[2016-10-24] MEDS: HYOSCYAMINE 0.125 MG TAB PO PRN (00:18)
[2016-10-24] MEDS: HALOPERIDOL 2 MG TAB PO PRN ×3 (00:19→17:52)
[2016-10-24] MEDS: MORPHINE SULFATE 4 MG/ML INJ IV PUSH PRN ×4 (00:19→13:45)
[2016-10-24] MEDS: LABETALOL HCL 100 MG/20 ML VIAL IV PUSH PRN ×5 (04:11→22:15)
[2016-10-24] MEDS: PROPRANOLOL HCL 10 MG TAB PO SCH ×3 (05:05→20:48)
[2016-10-24] MEDS: hydrALAZINE HCL 10 MG TAB PO SCH ×3 (05:05→17:40)
[2016-10-24] MEDS: PHENYTOIN SUSP 100 MG/4 ML CUP PEG SCH ×3 (05:06→20:48)
[2016-10-24] MEDS: INSULIN NovoLIN REGULAR SUPPLEMENTAL SCALE SQ SCH ×4 (07:00→21:00)
[2016-10-24] MEDS: FUROSEMIDE 20 MG TAB PO SCH (07:59)
[2016-10-24] MEDS: POTASSIUM CHLORIDE 25 MEQ EFFERVESCENT TAB PO SCH (07:59)
[2016-10-24] MEDS: FAMOTIDINE 20 MG TAB PO SCH ×2 (07:59→20:48)
[2016-10-24] MEDS: predniSONE 10 MG TAB PO SCH ×2 (07:59→20:48)
[2016-10-24] MEDS: levETIRAcetam 500 MG/5 ML UDC TUBE SCH ×2 (07:59→20:48)
[2016-10-24] MEDS: METOPROLOL SUCCINATE 25 MG EXTENDED RELEASE TAB PO SCH (08:00)
[2016-10-24] MEDS: LISINOPRIL 20 MG TAB PO SCH ×2 (08:00→20:48)
[2016-10-24] MEDS: CHLORHEXIDINE 0.12% (ORAL KIT) 15 ML CUP MT SCH ×2 (08:00→20:48)
[2016-10-24] MEDS: THIAMINE HCL 100 MG TAB PO SCH (08:00)
[2016-10-24] MEDS: SODIUM CHLORIDE 0.9% FLUSH 5 ML FLUSH IVF SCH ×2 (08:00→20:49)
--- NOTE | 2016-10-24 10:46 | HHI.PR ---
Neuropsych Emotional Emotional: Mild: Anxious/Fearful Behavior Behavior: Moderate: Impulsive/Agitated Cognitive Cognitive: Unable to Asses: Cognitive, Attention/Concentration, Confused/ Orientation, Insight/Awareness, Judgement/Problem-Solving, Memory Progress Notes/Response to Tx Contents of Sessions: Level of Consciousness Time with Patient: 15 minutes Premorbid psychological status Essentially unknown. The patient does appear to have chronic substance dependence issues, given toxicology and neuroimaging results. Maximizing acute care outcome It is recommended that the patient be monitored for emergent behavioral impulsivity as the medical condition evolves. This patients neuropathological challenges may limit their rehabilitation potential going forward, in addition to premorbid psychosocial challenges, and these challenges will require specialized therapeutic skills to maximize outcome. Anticipated Problems Ongoing areas of concern will include behavioral impulsivity, lack of insight and judgment, which may or may not be expected to improve with time and treatment. 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 Treatment Plan To be determined based on his ongoing pattern of recovery. 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 [facility] Level: IV:Confused/Agitated-maximal assist Diagnosis: (1) Progress Note Narrative Saw patient in room. He was alert but only inconsistently following commands. It is understood that family member has been contacted. I will continue to follow with you. Kareem Luther PhD Oct 24, 2016 10:46 am
[2016-10-24] MEDS ORDERED: FUROSEMIDE 40 MG/4 ML VIAL IV PUSH ONE (11:00)
[2016-10-24] MEDS: cefTRIAXone INJ 2,000 MG in SODIUM CHLORIDE 0.9% INJ 100 ML IV SCH (13:30)
--- NOTE | 2016-10-24 14:33 | HHI.IDPN ---
Subjective Subjective Remarks Notes reviewed Temps ok Tolerating T-piece trials Tolerating TF BP ok S/P trach 10/17 Antibiotics Rocephin Lines PIV Past Medical History Not known Allergies: Coded Allergies: Bee Sting (Verified Allergy, Severe, Anaphylaxis, 09/04/15) Codeine (Verified Allergy, Mild, SWELLING, ITCHING, 09/04/15) Objective . Vital Signs Date Time Temp Pulse Resp B/P Pulse Ox O2 Delivery O2 Flow Rate FiO2 10/24/16 14:00 85 10/24/16 12:00 40 10/24/16 12:00 74 10/24/16 12:00 98.4 74 28 139/71 90 10/24/16 10:01 40 10/24/16 10:01 96 T-piece 35 10/24/16 10:00 84 10/24/16 08:00 90 10/24/16 08:00 80 10/24/16 08:00 98.0 88 18 158/75 97 10/24/16 08:00 20 10/24/16 06:55 80 10/24/16 06:00 76 10/24/16 04:00 92 10/24/16 04:00 40 10/24/16 04:00 97.9 92 20 174/89 92 10/24/16 03:22 93 40 10/24/16 02:00 76 10/24/16 00:07 96 40 10/24/16 00:00 90 10/24/16 00:00 98.0 90 20 189/96 92 10/24/16 00:00 40 10/23/16 22:00 82 10/23/16 20:30 40 10/23/16 20:25 94 40 10/23/16 20:00 97.7 94 27 212/111 92 10/23/16 20:00 40 10/23/16 20:00 94 10/23/16 18:00 92 10/23/16 16:00 98.3 75 26 159/80 96 10/23/16 16:00 97 T-piece 6.00 40 10/23/16 16:00 77 10/23/16 16:00 40 10/23/16 10/23/16 10/24/16 15:00 23:00 07:00 Intake Total 359 ml 523 ml 605 ml Output Total 1350 ml 700 ml 700 ml Balance -991 ml -177 ml -95 ml Intake Oral 0 ml IV Total 55 ml Tube Feeding 254 ml 323 ml 485 ml Tube Irrigant 50 ml Other 200 ml 120 ml Output Urine Total 1350 ml 700 ml 700 ml # Bowel Movements 2 0 1 . Laboratory Tests Test 10/23/16 03:41 White Blood Count 17.8 TH/MM3 Red Blood Count 2.86 MIL/MM3 Hemoglobin 9.9 GM/DL Hematocrit 29.2 % Mean Corpuscular Volume 102.1 FL Mean Corpuscular Hemoglobin 34.7 PG Mean Corpuscular Hemoglobin 33.9 % Concent Red Cell Distribution Width 14.7 % Platelet Count 338 TH/MM3 Mean Platelet Volume 8.1 FL Neutrophils (%) (Auto) 84.5 % Lymphocytes (%) (Auto) 6.3 % Monocytes (%) (Auto) 7.5 % Eosinophils (%) (Auto) 1.2 % Basophils (%) (Auto) 0.5 % Neutrophils # (Auto) 15.0 TH/MM3 Lymphocytes # (Auto) 1.1 TH/MM3 Monocytes # (Auto) 1.3 TH/MM3 Eosinophils # (Auto) 0.2 TH/MM3 Basophils # (Auto) 0.1 TH/MM3 CBC Comment DIFF FINAL Differential Comment Laboratory Tests Test 10/23/16 03:41 Sodium Level 134 MEQ/L Potassium Level 4.4 MEQ/L Chloride Level 96 MEQ/L Carbon Dioxide Level 29.1 MEQ/L Anion Gap 9 MEQ/L Blood Urea Nitrogen 19 MG/DL Creatinine 0.57 MG/DL Estimat Glomerular Filtration 143 ML/MIN Rate Random Glucose 118 MG/DL Calcium Level 8.4 MG/DL Imaging Chest X-Ray 10/21/16599 Signed Impressions: Service Date/Time: Friday, October 21, 2016 03:52 - CONCLUSION: No significant change in the bilateral opacities. Lucio Tyler MD Chest X-Ray 10/20/16 06 Signed Impressions: Service Date/Time: Thursday, October 20, 2016 05:55 - CONCLUSION: Mild interval increase in perihilar and bibasilar opacities most consistent with pulmonary edema. The findings could indicate congestive heart failure. Lucio Tyler MD Head CT 10/16/16599 Signed Impressions: Service Date/Time: September 04:59 - CONCLUSION: 1. Increased subdural hematoma/cystic hygroma on the left and with associated 5 mm of rightward midline shift now present. Right subdural collection unchanged. 2. Left frontal, parietal and temporal lobe parenchymal hemorrhage not significantly changed. 3. Sinus disease again noted. Willian Reynaga MD Chest X-Ray 10/16/16 0600 Signed Impressions: Service Date/Time: September 05:27 - CONCLUSION: No significant change. Willian Reynaga MD Pelvis X-Ray 10/10/162204 Signed Impressions: Service Date/Time: Monday, October 10, 2016 21:49 - CONCLUSION: Satisfactory trauma pelvis appearance. Willian Tavares MD Cervical Spine CT 10/10/162204 Signed Impressions: Service Date/Time: Monday, October 10, 2016 22:08 - CONCLUSION: No acute bony injury in the cervical spine Willian Tavares MD Physical Exam GENERAL: not in respiratory distress. On T-piece SKIN: Warm and dry, no generalized rash HEENT: [place] conjunctivae. No scleral icterus. No injection or drainage. NECK: Trach site ok CARDIOVASCULAR: Regular rate and rhythm without murmurs, gallops, or rubs. RESPIRATORY: Coarse breath sounds bilaterally. Decreased BS bases ABDOMEN: Distended, bowel sounds are present and normoactive. No guarding. MUSCULOSKELETAL: Extremities without clubbing, cyanosis, or edema in BLE. Has edema of hands. NEUROLOGICAL: Sedated on the vent. No Babinski or ankle clonus. PSYCH: Unable to assess LINE: PIV with no evidence of infection : Chen in place, with clear urine Assessment & Plan Remarks IMPRESSION Pneumonia, likely aspiration - initial sputum with MSSA and Hemophilus Respiratory failure, on vent since 10/11 TBI due to fall - (+) ETOH Fevers, ?new infection - temps better Leukocytosis, stable RECOMMENDATION Continue Rocephin - give 7 days - to finish today Weaning per CCM Monitor off Abx D/W RN Dr No available this weekend if with any ID issue or question I will check patient on Thursday Silvana Antony MD Oct 24, 2016 14:33
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
[2016-10-25] VITALS (19 sets, daily range): BP systolic 134–189; BP diastolic 58–94; PULSE 80–96; RESP 16–26; TEMP 98.3–100.5; O2SAT 92–97
[2016-10-25] MEDS: HALOPERIDOL 2 MG TAB PO PRN ×3 (00:58→20:35)
[2016-10-25] MEDS: hydrALAZINE HCL 10 MG TAB PO SCH ×4 (00:58→17:41)
[2016-10-25] MEDS: LABETALOL HCL 100 MG/20 ML VIAL IV PUSH PRN ×4 (01:10→10:14)
[2016-10-25] MEDS: MORPHINE SULFATE 4 MG/ML INJ IV PUSH PRN (02:30)
[2016-10-25] MEDS: PHENYTOIN SUSP 100 MG/4 ML CUP PEG SCH ×3 (05:15→21:47)
[2016-10-25] MEDS: PROPRANOLOL HCL 10 MG TAB PO SCH ×3 (05:16→21:47)
--- NOTE | 2016-10-25 05:52 | RADRPT ---
EXAM DATE/TIME: 10/25/2016 04:26 [facility] COMPARISON: CHEST SINGLE AP, October 22, 2016, 4:46. INDICATIONS : Please evaluate after respiratory failure. MEDICAL HISTORY : None. SURGICAL HISTORY : None. ENCOUNTER: Subsequent ACUITY: 4 - 6 days PAIN SCORE: Non-responsive. LOCATION: Bilateral chest FINDINGS: A single view of the chest demonstrates diffuse bilateral airspace disease slightly more prominent in the perihilar regions. Tracheostomy tube and nasogastric tube are unchanged. Heart normal in size. T he cardiomediastinal contours are unremarkable. Osseous structures are intact. CONCLUSION: Diffuse bilateral airspace disease more notably within the perihilar distribution is slightly more pr ominent on current study. Scott Piña MD on October 25, 2016 at 5:48 Board Certified Radiologist. This report was verified electronically.
[2016-10-25] MEDS: INSULIN NovoLIN REGULAR SUPPLEMENTAL SCALE SQ SCH ×4 (06:50→21:00)
[2016-10-25] MEDS: THIAMINE HCL 100 MG TAB PO SCH (08:18)
[2016-10-25] MEDS: CHLORHEXIDINE 0.12% (ORAL KIT) 15 ML CUP MT SCH ×2 (08:18→20:33)
[2016-10-25] MEDS: METOPROLOL SUCCINATE 25 MG EXTENDED RELEASE TAB PO SCH (08:18)
[2016-10-25] MEDS: predniSONE 10 MG TAB PO SCH ×2 (08:18→20:34)
[2016-10-25] MEDS: levETIRAcetam 500 MG/5 ML UDC TUBE SCH ×2 (08:18→20:34)
[2016-10-25] MEDS: POTASSIUM CHLORIDE 25 MEQ EFFERVESCENT TAB PO SCH (08:18)
[2016-10-25] MEDS: FAMOTIDINE 20 MG TAB PO SCH ×2 (08:18→20:34)
[2016-10-25] MEDS: SODIUM CHLORIDE 0.9% FLUSH 5 ML FLUSH IVF SCH ×2 (08:19→20:33)
[2016-10-25] MEDS: LISINOPRIL 20 MG TAB PO SCH ×2 (08:19→20:34)
[2016-10-25] MEDS: FUROSEMIDE 20 MG TAB PO SCH (08:19)
[2016-10-25] MEDS: RESP: ALBUTEROL 2.5 MG/IPRATROPIUM 0.5 MG NEB (SCH) NEB ×3 (09:57→20:10)
[2016-10-25 10:10] LABS: HEMATOCRIT 29.1 % (39.0-51.0); MEAN CELL VOLUME 101.1 FL (80.0-100.0); MEAN CORPUSCULAR HEMOGLOBIN 34.8 PG (27.0-34.0); MEAN CORPUSCULAR HGB CONC 34.4 % (32.0-36.0); PLATELET COUNT 430 TH/MM3 (150-450); RED BLOOD COUNT 2.88 MIL/MM3 (4.50-5.90); RED CELL DISTRIBUTION WIDTH 14.6 % (11.6-17.2); REVIEW FLAG FINAL
[2016-10-25 10:37] LABS: BICARBONATE 28.5 MEQ/L (21.0-32.0); POTASSIUM 4.2 MEQ/L (3.5-5.1)
[2016-10-25] MEDS: QUEtiapine FUMARATE 25 MG TAB PO SCH ×2 (10:52→20:34)
[2016-10-25] MEDS: SODIUM CHLOR 0.9% 1000 ML INJ 1,000 ML IV SCH ×2 (11:29→20:36)
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
[2016-10-25 20:55] LABS: BICARBONATE 31.2 MEQ/L (21.0-32.0); POTASSIUM 3.8 MEQ/L (3.5-5.1)
[2016-10-25] MEDS: hydrALAZINE HCL 25 MG TAB PO SCH (23:41)
[2016-10-26] VITALS (18 sets, daily range): BP systolic 152–194; BP diastolic 78–104; PULSE 78–98; RESP 14–47; TEMP 98.1–99.3; O2SAT 10–100
[2016-10-26] MEDS: RESP: ALBUTEROL 2.5 MG/IPRATROPIUM 0.5 MG NEB (SCH) NEB ×4 (02:25→21:07)
[2016-10-26] MEDS: LABETALOL HCL 100 MG/20 ML VIAL IV PUSH PRN (03:15)
[2016-10-26] MEDS: hydrALAZINE HCL 25 MG TAB PO SCH ×4 (04:42→23:38)
[2016-10-26] MEDS: HYOSCYAMINE 0.125 MG TAB PO PRN (04:42)
[2016-10-26] MEDS: PHENYTOIN SUSP 100 MG/4 ML CUP PEG SCH ×3 (04:42→20:51)
[2016-10-26] MEDS: PROPRANOLOL HCL 10 MG TAB PO SCH ×3 (04:42→20:52)
[2016-10-26] MEDS: HALOPERIDOL 2 MG TAB PO PRN (04:42)
[2016-10-26] MEDS: SODIUM CHLOR 0.9% 1000 ML INJ 1,000 ML IV SCH ×2 (04:43→17:00)
--- NOTE | 2016-10-26 05:08 | RADRPT ---
EXAM DATE/TIME: 10/26/2016 04:04 [facility] COMPARISON: CHEST SINGLE AP, October 25, 2016, 4:26. CHEST SINGLE AP, October 22, 2016, 4:46. INDICATIONS : Shortness of breath. MEDICAL HISTORY : None. SURGICAL HISTORY : None. ENCOUNTER: Subsequent ACUITY: 2 weeks PAIN SCORE: Non-responsive. LOCATION: Bilateral chest FINDINGS: A single view of the chest demonstrates the tracheostomy tube, nasogastric tube are in good position. Persistent infiltrate right lower lobe. Diffuse perihilar vascular congestion unchanged. The cardio mediastinal contours are unremarkable. Osseous structures are intact. CONCLUSION: Perihilar Infiltrate right greater than left with some consolidation in the right lower lobe medially . Very similar to the previous study Jam Perdue MD on October 26, 2016 at 5:05 Board Certified Radiologist. This report was verified electronically.
[2016-10-26 05:15] LABS: HEMATOCRIT 27.3 % (39.0-51.0); MEAN CORPUSCULAR HGB CONC 34.7 % (32.0-36.0); PLATELET COUNT 405 TH/MM3 (150-450); RED CELL DISTRIBUTION WIDTH 15.2 % (11.6-17.2); REVIEW FLAG FINAL; WHITE BLOOD COUNT 21.8 TH/MM3 (4.0-11.0)
[2016-10-26 05:35] LABS: BICARBONATE 26.7 MEQ/L (21.0-32.0); MAGNESIUM 1.7 MG/DL (1.5-2.5); POTASSIUM 3.7 MEQ/L (3.5-5.1)
[2016-10-26 06:06] LABS: BLOOD GAS BASE EXCESS 2.6 mmol/L (-2-2); BLOOD GAS CARBOXYHEMOGLOBIN 1.2 % (0-4); BLOOD GAS HCO3 26 mmol/L (22-26); BLOOD GAS METHEMOGLOBIN 0.6 % (0-2); BLOOD GAS O2 HGB SATURATION 96 % (90-100); BLOOD GAS PCO2 39 mmHg (38-42); BLOOD GAS PO2 91 mmHg (61-120); BLOOD GAS TOTAL HGB 9.6 G/DL (12.0-16.0); CRITICAL VALUE NO; FIO2 50 %; OXYGEN DEVICE VENTILATOR; TEMP CORR TO 98.6
[2016-10-26 06:07] LABS: DRAW SITE RT RADIAL; NUMBER OF ARTERIAL PUNCTURES 1; STAT NO; ULNAR PULSE PRESENT
[2016-10-26] MEDS: INSULIN NovoLIN REGULAR SUPPLEMENTAL SCALE SQ SCH ×4 (06:47→20:52)
[2016-10-26] MEDS: CHLORHEXIDINE 0.12% (ORAL KIT) 15 ML CUP MT SCH ×2 (08:50→20:52)
[2016-10-26] MEDS: SODIUM CHLORIDE 0.9% FLUSH 5 ML FLUSH IVF SCH ×2 (08:51→20:52)
[2016-10-26] MEDS: predniSONE 10 MG TAB PO SCH ×2 (08:52→20:51)
[2016-10-26] MEDS: POTASSIUM CHLORIDE 25 MEQ EFFERVESCENT TAB PO SCH (08:53)
[2016-10-26] MEDS: FUROSEMIDE 20 MG TAB PO SCH (08:54)
[2016-10-26] MEDS: FAMOTIDINE 20 MG TAB PO SCH ×2 (08:54→20:52)
[2016-10-26] MEDS: THIAMINE HCL 100 MG TAB PO SCH (08:55)
[2016-10-26] MEDS: levETIRAcetam 500 MG/5 ML UDC TUBE SCH ×2 (08:55→20:51)
[2016-10-26] MEDS: QUEtiapine FUMARATE 25 MG TAB PO SCH ×2 (08:55→20:52)
[2016-10-26] MEDS: LISINOPRIL 20 MG TAB PO SCH ×2 (08:55→20:52)
[2016-10-26] MEDS: METOPROLOL SUCCINATE 25 MG EXTENDED RELEASE TAB PO SCH (08:55)
[2016-10-26] MEDS: cloNIDine HCL 0.1 MG TAB PO PRN (10:00)
[2016-10-26] MEDS: METOPROLOL TARTRATE 50 MG TAB PO SCH ×2 (10:15→20:52)
--- NOTE | 2016-10-26 13:56 | HHI.CCPN ---
Subjective Brief History This 64-year-old male was in a bar, fell backward from the standing or sitting position. He is brought as a priority 1 trauma alert because of the LOC, Russell coma scale was 10. Initial alcohol level was 237. The patient brought on a spinal board with C-collar in place. Patient underwent CT scan of the head which revealed left fronto parietal areas of hemorrhage and chronic encephalomalacia. Patient was initially placed in the ICU for observation, but then developed seizures. The CT of the brain has worsened and patient's inability to clear secretions lead to hypoxemia and tachypnea requiring intubation. The patient remains mechanically ventilated. PMHx: ETOH abuse, HTN, COPD, Cardiomegaly INJURIES: LEFT fronto-temporal contusion, 2 cm. 24 Hour Review/Hospital Course 10/11/2016 No acute events overnight. Patient has remained lethargic. 10/12/16 Patient developed seizures and the repeat CAT scan revealed some more prominent the evolving hemorrhage of the left temporoparietal area commensurate with patient's decreased level of consciousness Inability to clear secretions in combination of decreased level of consciousness with seizures necessitates intubation and currently patient is intubated and ventilated Great care by Dr. Davis throughout the night 10/13/16 Patient remains on the ventilator No more seizures Pupils equal and reactive EEG was negative for repeated seizures 10/14/16 Patient doing well at this time No more seizures Sedation indication patient moves all 4 extremities however left weaker than the right which is consistent with right frontoparietal hemorrhage and contusion Once neurologic function is sufficiently improved and patient can maintain the airway, he will be weaned to extubate 10/15/2016 No seizure activity noted. Remains on Keppra and Dilantin. Pt with a positive sputum culture growing staph aureus and Haemophilus influenza. ID consulted. Continues with fevers. Copious respiratory secretions, preventing CPAP trial today. Added Levsin for his secretion control 10/16/2016 CT of the head today displays increased SDH on the LEFT. We'll plan for trach placement tomorrow, in light of increasing subdural hematoma status, and increasing respiratory secretions. 10/17/2016 No acute events overnight Bedside trach today 10/18/2016 S/P DEPARTMENT SPECIALIST placement Tolerating CPAP Not following commands 10/19/16 Patient slightly more awake but doesn't follow commands opens eyes spontaneously Tracheostomy clean and dry Patient was on CPAP through the day and then placed on the ventilator through the night Will likely give him another day of CPAP and then place him on trach collar tomorrow, from the ventilator 10/20/16 Neurologically patient is doing better following some commands and waking up He is doing well on CPAP and has been moved to the trach collar and will be from the ventilator successfully 10/21/2016 Patient failed his swallow eval. We will try daily. Patient tolerated trach collar for almost 5-1/2 hours yesterday. We will continue with daily trach collar trials for as long as the patient can tolerate. 10/22/2016 Tolerated CPAP overnight. DEPARTMENT SPECIALIST collar today as tolerated. Following commands. 10/23/2016 Restless at times, follows commands No seizure activity Daily bedside swallow eval 10/24/16 Tolerating CPAP, slowly progressing to DEPARTMENT SPECIALIST collar More alert, follows commands CM was able to locate patient's sister as NOK 10/25/16 Patient slightly more awake and opens eyes spontaneously moves all 4 extremities slightly more animated but clearly disoriented 10/26/16 Patient opens eyes spontaneously will sometimes moves all 4 extremities and is a hard to keep down needs to be restrained from time to time in order not to pull on his lines and catheters and tubes Does not speak Neurologically about the same Objective Vital Signs Date Time Temp Pulse Resp B/P Pulse Ox O2 Delivery O2 Flow Rate FiO2 10/26/16 12:00 89 10/26/16 12:00 98.6 15 161/79 10 10/26/16 10:40 45 10/24/16 10:01 T-piece 10/23/16 16:00 6.00 Intake and Output 10/25/16 10/25/16 10/26/16 08:00 16:00 00:00 Intake Total 418 ml 797 ml 1176 ml Balance 418 ml 797 ml 1176 ml Result Diagram: 10/26/16 0434 10/26/16 0434 Other Results Laboratory Tests Test 10/26/16 05:54 Blood Gas Puncture Site RT RADIAL Blood Gas Patient Temperature 98.6 Blood Gas HCO3 26 mmol/L (22-26) Blood Gas Base Excess 2.6 mmol/L (-2-2) Blood Gas Oxygen Saturation 96 % (90-100) Arterial Blood pH 7.45 (7.380-7.420) Arterial Blood Partial 39 mmHg (38-42) Pressure CO2 Arterial Blood Partial 91 mmHg Pressure O2 (61-120) Arterial Blood Oxygen Content 13.0 Vol % (12.0-20.0) Arterial Blood 1.2 % (0-4) Carboxyhemoglobin Arterial Blood Methemoglobin 0.6 % (0-2) Blood Gas Hemoglobin 9.6 G/DL (12.0-16.0) Oxygen Delivery Device VENTILATOR Blood Gas Ventilator Setting SEE COMMENT Blood Gas Inspired Oxygen 50 % Imaging Last 24 hours Impressions Chest X-Ray 10/26/16 0600 Signed Impressions: Service Date/Time: Wednesday, October 26, 2016 04:04 - CONCLUSION: Perihilar Infiltrate right greater than left with some consolidation in the right lower lobe medially. Very similar to the previous study Jam Perdue MD Exam TALK SHOW HOST No change in neurologic status Hemodynamic/Cardiac Hemodynamically remains stable Pulmonary/Respiratory Bilateral breath sounds patient has severe COPD and poor pulmonary function with poor oxygen exchange Due to the neurologic deficit as well as poor lung function patient is very hard to wean off the ventilator but were making slow steady progress Abdomen/GI Nutrition Abdomen is soft somewhat distended patient had huge bowel movement yesterday Today he was backing up his enteral feeds and this will be stopped and then restarted tomorrow Patient some degree of ileus but no signs of obstruction Hematologic Hematologically patient is stable White count is gradually decreasing Urinary Catheter Assessment Date of Insertion: Oct 10, 2016 Assessment and Plan Plan [place]: Patient fell backwards at a bar. +LOC. + ETOH = 237, GCS 14 on arrival. Patient sustained a subdural hematoma and due to the development of seizure activity, he was intubated and mechanically ventilated. INJURIES: LEFT fronto-temporal contusion, 2 cm. 10/17/2016: DEPARTMENT SPECIALIST ASSESSMENT AND PLAN: NEUROLOGICAL: Provide anesthesia for comfort and pain. [place] PO. Monitor for seizures, on Keppra and Dilantin. Ativan PRN HOB elevated 30 degrees Neurology and Neurosurgery following Added Propanolol and Haldol for agitation CARDIOVASCULAR: HR = 70-92 BPM. SBP- Hypertensive. Hydralazine dose increased, will monitor. PO Lisinopril, Hydralazine and Lopressor PO. PRN Labetolol for SBP> 180 Daily Lasix 20 mg (with Potassium 20 MEQ daily) Follow CMP Electrolyte protocol in place RESPIRATORY: Vent settings: On CPAP overnight 40% / 5 / +5 Trach collar daily as tolerated Monitor for hypoxemia, tachypneic at times. Levsin PRN for increased respiratory secretions. Pulmonary toilet L&S as needed. Prednisone 10mg PO BID for history of COPD Bronchodilators - Duonebs PRN Sputum culture from 09/12 - positive for staph aureus and Haemophilus influenza. - Rocephin IV Infectious disease following GASTROINTESTINAL: Diet tolerating TF Jevity at goal Bowel regimen Colace, MOM. LBM 10/24 GI consulted for PEG placement. Obtain consent from patient's sister. RENAL / URINARY: I&O + 1263 Lasix 40mg x 1 today BUN / creat 19/0.57 DC Chen catheter today ENDOCRINE: BGM 130-[address]. HEMATOLOGY: H&H 9.9/29.2 PLT 338 Continue to monitor for signs and symptoms of bleeding Transfuse for < 7.0 INFECTIOUS DISEASE: Follow CBC WBC - 17.8 Afebrile Administer antipyretics for temp as needed. BC are negative from 10/15 Sputum culture on 10/12 - positive for staph aureus and Haemophilus influenza. ABX: Rocephin IV Follow Chest x-rays. Maintain vigorous aseptic care of IVs to avoid blood stream infection. PROPHYLAXIS: GI Famotidine PO DVT - SCD's. Would like to start Lovenox SQ if OK with neurosurgery. SKIN: Warm / Dry Specialty bed ACTIVITY: Status - OOB with assist OOB to cardiac chair daily PT and OT evaluating. CASE MANAGEMENT: Consulted for assist with DC planning. Located patient's sister who is glad to assist and make decisions on patient's behalf. [facility] following for possible placement. Discussed with RN at bedside. Pt remains critically ill in the ICU. Attestation The exam, history, and the medical decision-making described in the above note were completed with the assistance of the mid-level provider. I reviewed and agree with the findings presented. I attest that I had a [id number] encounter with the patient on the same day, and personally performed and documented my assessment and findings in the medical record. Critical care time 35 minutes. Jak Flores MD Oct 26, 2016 13:55
[2016-10-26] MEDS: ENOXAPARIN SODIUM 40 MG/0.4 ML SYRINGE SQ SCH (17:00)
[2016-10-27] VITALS (17 sets, daily range): BP systolic 139–187; BP diastolic 66–89; PULSE 84–96; RESP 15–22; TEMP 98.1–99.2; O2SAT 95–99
[2016-10-27] MEDS: cloNIDine HCL 0.1 MG TAB PO PRN (01:30)
[2016-10-27] MEDS: RESP: ALBUTEROL 2.5 MG/IPRATROPIUM 0.5 MG NEB (SCH) NEB ×4 (04:03→20:33)
[2016-10-27] MEDS: LABETALOL HCL 100 MG/20 ML VIAL IV PUSH PRN ×2 (04:15→07:05)
[2016-10-27] MEDS: SODIUM CHLOR 0.9% 1000 ML INJ 1,000 ML IV SCH ×3 (04:16→23:00)
[2016-10-27 04:29] LABS: HEMATOCRIT 27.2 % (39.0-51.0); MEAN CELL VOLUME 101.3 FL (80.0-100.0); MEAN CORPUSCULAR HEMOGLOBIN 35.5 PG (27.0-34.0); MEAN CORPUSCULAR HGB CONC 35.1 % (32.0-36.0); PLATELET COUNT 439 TH/MM3 (150-450); RED BLOOD COUNT 2.68 MIL/MM3 (4.50-5.90); RED CELL DISTRIBUTION WIDTH 14.4 % (11.6-17.2); REVIEW FLAG FINAL; WHITE BLOOD COUNT 18.9 TH/MM3 (4.0-11.0)
[2016-10-27 04:52] LABS: MAGNESIUM 1.6 MG/DL (1.5-2.5); POTASSIUM 3.8 MEQ/L (3.5-5.1)
[2016-10-27 05:25] LABS: BLOOD GAS CARBOXYHEMOGLOBIN 1.3 % (0-4); BLOOD GAS HCO3 25 mmol/L (22-26); BLOOD GAS METHEMOGLOBIN 0.7 % (0-2); BLOOD GAS O2 HGB SATURATION 96 % (90-100); BLOOD GAS OXYGEN CONTENT 11.9 Vol % (12.0-20.0); BLOOD GAS PCO2 39 mmHg (38-42); BLOOD GAS PO2 109 mmHg (61-120); BLOOD GAS TOTAL HGB 8.7 G/DL (12.0-16.0); TEMP CORR TO 98.6
[2016-10-27 05:26] LABS: CRITICAL VALUE NO; DRAW SITE RT RADIAL; FIO2 45 %; NUMBER OF ARTERIAL PUNCTURES 1; OXYGEN DEVICE VENTILATOR; STAT NO; ULNAR PULSE PRESENT; VENT SETTINGS PRVCR8/500/1.0/+5
--- NOTE | 2016-10-27 05:44 | RADRPT ---
EXAM DATE/TIME: 10/27/2016 05:16 [facility] COMPARISON: CHEST SINGLE AP, October 26, 2016, 4:04. INDICATIONS : Please evaluate after respiratory failure. MEDICAL HISTORY : None. SURGICAL HISTORY : None. ENCOUNTER: Subsequent ACUITY: 4 - 6 days PAIN SCORE: Non-responsive. LOCATION: Bilateral chest FINDINGS: A single portable frontal view of the chest shows a tracheostomy tube. NG tube courses off the inferi or margin of the film. Heart is at the upper limits of normal in terms of size. Bibasilar pulmonary i nfiltrates are noted. The left is no wall the right is more pronounced. No effusions. CONCLUSION: 1. Bilateral pulmonary infiltrates. This is new on the left and more pronounced on the right when com pared to the prior study. Mahesh Hernandez Jr., MD on October 27, 2016 at 5:41 Board Certified Radiologist. This report was verified electronically.
[2016-10-27] MEDS: PHENYTOIN SUSP 100 MG/4 ML CUP PEG SCH ×3 (06:21→22:00)
[2016-10-27] MEDS: PROPRANOLOL HCL 10 MG TAB PO SCH ×2 (06:21→13:40)
[2016-10-27] MEDS: hydrALAZINE HCL 25 MG TAB PO SCH ×2 (06:21→11:15)
[2016-10-27] MEDS: INSULIN NovoLIN REGULAR SUPPLEMENTAL SCALE SQ SCH ×4 (06:22→20:07)
[2016-10-27] MEDS: HALOPERIDOL 2 MG TAB PO PRN ×3 (07:54→22:22)
[2016-10-27] MEDS: CHLORHEXIDINE 0.12% (ORAL KIT) 15 ML CUP MT SCH ×2 (08:00→19:51)
--- NOTE | 2016-10-27 08:44 | HHI.NSPN ---
History Chief Complaint: not verbalizing well Interval History 67-year-old male admitted 10/10/16 following a fall, inebriated, with CT scan revealing relatively small left frontal parenchymal hemorrhage. 10/11/16 patient required intubation with mechanical ventilation due to decreasing mental status, respiratory difficulty. Positive seizure activity witnessed at [facility]. 10/13/16: Remains intubated, sedated. No definite seizure activity reported 10/15/16: Remains intubated and sedated. 10/17/16: Tracheostomy today. Remains on ventilator, sedated on propofol 10/20/16: Tracheostomy and PEG tube in place. Remains on ventilator. More responsive today. Exam Results Vital Signs Date Time Temp Pulse Resp B/P Pulse Ox O2 Delivery O2 Flow Rate FiO2 10/27/16 08:00 99.2 85 18 159/77 99 10/27/16 08:00 45 10/24/16 10:01 T-piece 10/23/16 16:00 6.00 Intake and Output 10/26/16 10/26/16 10/27/16 08:00 16:00 00:00 Intake Total 879 ml 980 ml 900 ml Output Total 400 ml Balance 479 ml 980 ml 900 ml Physical Examination Tracheostomy in place Not following commands Mild to moderate eye opening to sternal rub. Pupils 2 -3 mm nonreactive. Mild oculocephalic movements Minimal intermittent grimacing deep pain Moves all extremities spontaneous with moderate strength Lab, Micro, Other Results Laboratory Tests Test 10/27/16 10/27/16 03:56 05:20 White Blood Count 18.9 TH/MM3 Red Blood Count 2.68 MIL/MM3 Hemoglobin 9.5 GM/DL Hematocrit 27.2 % Mean Corpuscular Volume 101.3 FL Mean Corpuscular Hemoglobin 35.5 PG Mean Corpuscular Hemoglobin 35.1 % Concent Red Cell Distribution Width 14.4 % Platelet Count 439 TH/MM3 Mean Platelet Volume 8.1 FL Sodium Level 132 MEQ/L Potassium Level 3.8 MEQ/L Chloride Level 95 MEQ/L Carbon Dioxide Level 25.0 MEQ/L Anion Gap 12 MEQ/L Blood Urea Nitrogen 14 MG/DL Creatinine 0.46 MG/DL Estimat Glomerular Filtration 183 ML/MIN Rate Random Glucose 99 MG/DL Calcium Level 8.6 MG/DL Magnesium Level 1.6 MG/DL Blood Gas Puncture Site RT RADIAL Blood Gas Patient Temperature 98.6 Blood Gas HCO3 25 mmol/L Blood Gas Base Excess 1.0 mmol/L Blood Gas Oxygen Saturation 96 % Arterial Blood pH 7.42 Arterial Blood Partial 39 mmHg Pressure CO2 Arterial Blood Partial 109 mmHg Pressure O2 Arterial Blood Oxygen Content 11.9 Vol % Arterial Blood 1.3 % Carboxyhemoglobin Arterial Blood Methemoglobin 0.7 % Blood Gas Hemoglobin 8.7 G/DL Oxygen Delivery Device VENTILATOR Blood Gas Ventilator Setting PRVCR8/500/1.0/+5 Blood Gas Inspired Oxygen 45 % Medical Decision Making Impression and Plan Impression: 1. 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 No significant mass effect. Mild bilateral subdural hygromas. Moderate diffuse atrophy. Neurologic exam slowly improving. Better eye-opening and grasping hands to command today. Encephalopathy Plan: Follow-up CT scan of the head to evaluate for any progression of subdural effusion Continue to wean off ventilatory support as tolerated Okay for Lovenox Continue anticonvulsants-change to feeding tube Sourav Jerry MD Oct 27, 2016 08:44
[2016-10-27] MEDS: SODIUM CHLORIDE 0.9% FLUSH 5 ML FLUSH IVF SCH ×2 (09:00→20:06)
[2016-10-27] MEDS: METOPROLOL TARTRATE 50 MG TAB PO SCH (09:03)
[2016-10-27] MEDS: levETIRAcetam 500 MG/5 ML UDC TUBE SCH ×2 (09:03→20:08)
[2016-10-27] MEDS: FAMOTIDINE 20 MG TAB PO SCH ×2 (09:03→20:06)
[2016-10-27] MEDS: FUROSEMIDE 20 MG TAB PO SCH (09:03)
[2016-10-27] MEDS: QUEtiapine FUMARATE 25 MG TAB PO SCH ×3 (09:03→22:27)
[2016-10-27] MEDS: LISINOPRIL 20 MG TAB PO SCH (09:03)
[2016-10-27] MEDS: predniSONE 10 MG TAB PO SCH ×2 (09:04→20:06)
[2016-10-27] MEDS: THIAMINE HCL 100 MG TAB PO SCH (09:04)
[2016-10-27] MEDS: POTASSIUM CHLORIDE 25 MEQ EFFERVESCENT TAB PO SCH (09:04)
--- NOTE | 2016-10-27 10:24 | HHI.PR ---
Neuropsych Emotional Emotional: UnabletoAssess: Emotional, Anxious/Fearful, Depressed/Sad, Hostile/ Resentful, Irritable/Angry/Frustrate, Labile, Constricted/Blunted Behavior Behavior: Moderate: Impulsive/Agitated, Severe: Cooperative w/ Treatment, Unable to Asses: Behavior, Suicidal/Homicidal Risk Cognitive Cognitive: Unable to Asses: Cognitive, Attention/Concentration, Confused/ Orientation, Insight/Awareness, Judgement/Problem-Solving, Memory Psychosocial Psychosocial: Unable to Asses: Psychosocial, Family/Other Adjustment, Realistic Expectation, Self-Esteem/Confidence Progress Notes/Response to Tx Contents of Sessions: Level of Consciousness Time with Patient: 15 minutes Premorbid psychological status Essentially unknown. The patient does appear to have chronic substance dependence issues, given toxicology and neuroimaging results. Maximizing acute care outcome It is recommended that the patient be monitored for emergent behavioral impulsivity as the medical condition evolves. This patients neuropathological challenges may limit their rehabilitation potential going forward, in addition to premorbid psychosocial challenges, and these challenges will require specialized therapeutic skills to maximize outcome. Anticipated Problems Ongoing areas of concern will include behavioral impulsivity, lack of insight and judgment, which may or may not be expected to improve with time and treatment. 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 Treatment Plan To be determined based on his ongoing pattern of recovery. 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 [facility] Level: IV:Confused/Agitated-maximal assist Diagnosis: (1) Progress Note Narrative Ongoing follow-up of patient during trauma rounds. He is reported to be alert but not consistently following commands. He is on medications to treat his agitation, which remains an ongoing issue. I will continue to follow with you. Kareem Luther PhD Oct 27, 2016 10:24 am
--- NOTE | 2016-10-27 10:30 | RADRPT ---
EXAM DATE/TIME: 10/27/2016 10:05 [facility] COMPARISON: CHEST SINGLE AP, October 27, 2016, 5:16. INDICATIONS : Distention. Possible ileus. MEDICAL HISTORY : Hepatitis C. SURGICAL HISTORY : None. ENCOUNTER: Initial ACUITY: 1 day PAIN SCORE: Non-responsive. LOCATION: Bilateral abdomen. FINDINGS: There is marked gaseous distention of the stomach with NG tube in place. No dilated loops of small or bowel are seen. Osseous structures and degenerative changes. Aortic and iliac artery calcifications. CONCLUSION: Marked gastric distention. Myke Kerr MD on October 27, 2016 at 10:28 Board Certified Radiologist. This report was verified electronically.
--- NOTE | 2016-10-27 12:26 | HHI.IDPN ---
Subjective Subjective Remarks Notes reviewed Temps occ 100+ Currently on the vent Has been tolerating T-piece this weekend BP ok CXR worse infiltrates S/P trach 10/17 Off Abx Antibiotics Rocephin - finished 10/24 None Lines PIV Past Medical History Not known Allergies: Coded Allergies: Bee Sting (Verified Allergy, Severe, Anaphylaxis, 09/04/15) Codeine (Verified Allergy, Mild, SWELLING, ITCHING, 09/04/15) Objective . Vital Signs Date Time Temp Pulse Resp B/P Pulse Ox O2 Delivery O2 Flow Rate FiO2 10/27/16 12:10 98 40 10/27/16 10:00 86 10/27/16 09:51 98 40 10/27/16 08:00 99.2 85 18 159/77 99 10/27/16 08:00 85 10/27/16 08:00 45 10/27/16 06:00 84 10/27/16 04:04 96 45 10/27/16 04:00 98.2 90 22 174/84 98 10/27/16 04:00 90 10/27/16 04:00 45 10/27/16 02:00 88 10/27/16 00:00 84 10/27/16 00:00 98.1 84 17 165/83 97 10/27/16 00:00 45 10/26/16 23:36 97 45 10/26/16 22:00 78 10/26/16 21:07 100 45 10/26/16 20:00 90 10/26/16 20:00 98.1 90 17 187/96 92 10/26/16 20:00 45 10/26/16 18:00 89 10/26/16 16:12 45 10/26/16 16:04 100 45 10/26/16 16:00 98.9 88 19 185/88 100 10/26/16 16:00 98 10/26/16 14:00 97 10/26/16 10/26/16 10/27/16 15:00 23:00 07:00 Intake Total 980 ml 900 ml 808 ml Output Total 300 ml Balance 980 ml 900 ml 508 ml IV Total 860 ml 800 ml 708 ml Tube Feeding 0 ml 0 ml 0 ml Other 120 ml 100 ml 100 ml Output Urine Total 300 ml # Voids 4 4 2 # Bowel Movements 1 1 1 . Laboratory Tests Test 10/26/16 10/27/16 04:34 03:56 White Blood Count 21.8 TH/MM3 18.9 TH/MM3 Red Blood Count 2.70 MIL/MM3 2.68 MIL/MM3 Hemoglobin 9.4 GM/DL 9.5 GM/DL Hematocrit 27.3 % 27.2 % Mean Corpuscular Volume 101.0 FL 101.3 FL Mean Corpuscular Hemoglobin 35.0 PG 35.5 PG Mean Corpuscular Hemoglobin 34.7 % 35.1 % Concent Red Cell Distribution Width 15.2 % 14.4 % Platelet Count 405 TH/MM3 439 TH/MM3 Mean Platelet Volume 8.4 FL 8.1 FL Laboratory Tests Test 10/25/16 10/26/16 10/27/16 19:57 04:34 03:56 Sodium Level 130 MEQ/L 132 MEQ/L 132 MEQ/L Potassium Level 3.8 MEQ/L 3.7 MEQ/L 3.8 MEQ/L Chloride Level 90 MEQ/L 95 MEQ/L 95 MEQ/L Carbon Dioxide Level 31.2 MEQ/L 26.7 MEQ/L 25.0 MEQ/L Anion Gap 9 MEQ/L 10 MEQ/L 12 MEQ/L Blood Urea Nitrogen 16 MG/DL 14 MG/DL 14 MG/DL Creatinine 0.59 MG/DL 0.51 MG/DL 0.46 MG/DL Estimat Glomerular Filtration 137 ML/MIN 163 ML/MIN 183 ML/MIN Rate Random Glucose 112 MG/DL 99 MG/DL 99 MG/DL Calcium Level 8.4 MG/DL 8.2 MG/DL 8.6 MG/DL Magnesium Level 1.7 MG/DL 1.6 MG/DL Microbiology Date/Time Procedure Status Source Growth 10/27/16 10:35 Gram Stain Received Sputum Endotracheal Pending 10/27/16 10:35 Sputum Culture Received Sputum Endotracheal Pending Imaging Chest X-Ray 10/21/16 0600 Signed Impressions: Service Date/Time: Friday, October 21, 2016 03:52 - CONCLUSION: No significant change in the bilateral opacities. Lucio Tyler MD Chest X-Ray 10/20/16 0600 Signed Impressions: Service Date/Time: Thursday, October 20, 2016 05:55 - CONCLUSION: Mild interval increase in perihilar and bibasilar opacities most consistent with pulmonary edema. The findings could indicate congestive heart failure. Lucio Tyler MD Head CT 10/16/16599 Signed Impressions: Service Date/Time: September 04:59 - CONCLUSION: 1. Increased subdural hematoma/cystic hygroma on the left and with associated 5 mm of rightward midline shift now present. Right subdural collection unchanged. 2. Left frontal, parietal and temporal lobe parenchymal hemorrhage not significantly changed. 3. Sinus disease again noted. Willian Reynaga MD Chest X-Ray 10/16/16599 Signed Impressions: Service Date/Time: September 05:27 - CONCLUSION: No significant change. Willian Reynaga MD Pelvis X-Ray 10/10/162204 Signed Impressions: Service Date/Time: Monday, October 10, 2016 21:49 - CONCLUSION: Satisfactory trauma pelvis appearance. Willian Tavares MD Cervical Spine CT 10/10/162204 Signed Impressions: Service Date/Time: Monday, October 10, 2016 22:08 - CONCLUSION: No acute bony injury in the cervical spine Willian Tavares MD Physical Exam GENERAL: not in respiratory distress.Sedated, on the vent. SKIN: Warm and dry, no generalized rash HEENT: Poth conjunctivae. No scleral icterus. No injection or drainage. NECK: Trach site ok CARDIOVASCULAR: Regular rate and rhythm without murmurs, gallops, or rubs. RESPIRATORY: Coarse breath sounds bilaterally. Decreased BS bases ABDOMEN: Distended, bowel sounds are present and normoactive. No guarding. MUSCULOSKELETAL: Extremities without clubbing, cyanosis, or edema in BLE. Has less edema of hands. NEUROLOGICAL: Sedated on the vent. No Babinski or ankle clonus. PSYCH: Unable to assess LINE: PIV with no evidence of infection : Condom cath in place Assessment & Plan Remarks IMPRESSION Possible new sepsis, has increased temp, increased WBC - ?new VAP - ?new source Pneumonia, likely aspiration - initial sputum with MSSA and Hemophilus - S/P Rx Respiratory failure, on vent since 10/11 TBI due to fall - (+) ETOH Fevers, ?new infection - temps better Leukocytosis, increasing RECOMMENDATION Repeat 2 BC Agree with checking sputum C/S Start Zosyn and Zyvox for possible new VAP Follow C/S Follow CBC Monitor temps Monitor clinically Silvana Antony MD Oct 27, 2016 12:26
--- NOTE | 2016-10-27 13:24 | HHI.CCPN ---
Subjective Remarks/Hospital Course 65 y/o man apparently fell over backwards in or outside of local bar with +LOC at scene and seizures, unable to intubate in the field. Overnight the patient was desaturating on CPAP, requiring him to be placed back on the ventilator. His abdomen is distended and he appears to have tube feeds and his oropharynx suggesting aspiration pneumonitis. Nursing also reports frequent large bowel movements. Objective Vital Signs Date Time Temp Pulse Resp B/P Pulse Ox O2 Delivery O2 Flow Rate FiO2 10/27/16 12:10 98 40 10/27/16 12:00 84 10/27/16 08:00 99.2 18 159/77 10/24/16 10:01 T-piece 10/23/16 16:00 6.00 Intake and Output 10/26/16 10/26/16 10/27/16 08:00 16:00 00:00 Intake Total 879 ml 980 ml 900 ml Output Total 400 ml Balance 479 ml 980 ml 900 ml Result Diagram: 10/27/16 0356 10/27/16 0356 Other Results Laboratory Tests Test 10/27/16 05:20 Blood Gas Puncture Site RT RADIAL Blood Gas Patient Temperature 98.6 Blood Gas HCO3 25 mmol/L (22-26) Blood Gas Base Excess 1.0 mmol/L (-2-2) Blood Gas Oxygen Saturation 96 % (90-100) Arterial Blood pH 7.42 (7.380-7.420) Arterial Blood Partial 39 mmHg (38-42) Pressure CO2 Arterial Blood Partial 109 mmHg Pressure O2 (61-120) Arterial Blood Oxygen Content 11.9 Vol % (12.0-20.0) Arterial Blood 1.3 % (0-4) Carboxyhemoglobin Arterial Blood Methemoglobin 0.7 % (0-2) Blood Gas Hemoglobin 8.7 G/DL (12.0-16.0) Oxygen Delivery Device VENTILATOR Blood Gas Ventilator Setting PRVCR8/500/1.0/+5 Blood Gas Inspired Oxygen 45 % Imaging Head CT: Left frontotemporal contusion, 2 cm. CXR: clear. Cardiomegaly. Objective Remarks Gen: Agitated, flushed. Head: Minor cut right external ear. Dry, clean. Neck: Supple. Obstructive breath sounds and large amount of pulmonary secretions. Lungs: Diffuse rhonchi and wheezes. Labored. Heart: NL S1S2 70s. No m,r. No JVD. RRR. Tachycardia. Abdomen: Large, soft. Moderately distended. BS present. No guarding. Extremities: Warm, well perfused. Flushed. Neuro: Garbled speech without change from admission. Moves 4 limbs spontaneously and aggressively. Severely agitated. EFREN. Urinary Catheter: Yes Chen insert reason: Measure Accurate Output Date of Insertion: Oct 10, 2016 A/P Problem List: (1) (2) (3) (4) Assessment and Plan Assesment/Plan: Neuro - SAH, IPH - patient opens his eyes spontaneously, is nonverbal and withdraws to pain giving him a Rebeca Coma Scale of 9 Increase scheduled Seroquel and attempt to wean PRN Haldol as tolerated Pulmonary - lung sounds are coarse bilaterally with what appears to be tube feeds and the oropharynx Continue full ventilator support with aggressive pulmonary toilet including frequent suctioning for aspiration pneumonitis We'll start empiric antibiotics if patient develops fever or his leukocytosis worsens Cardiovascular - sinus rhythm Continue to monitor GI - abdomen distended & tympanic, emesis overnight with frequent liquid bowel movements Obtain a KUB and send stool for clostridium difficile Hold tube feeds for now PEG with GI - stable Continue Chen for accurate ins and outs FEN - emesis overnight with abdominal distention Hold tube feeds for now, await KUB and replace electrolytes as needed Dispo - patient remains critically ill with aspiration pneumonitis, what appears to be an ileus, emesis and possible clostridium difficile infection. He requires full ventilator support at this time and has a feeding problem with abdominal distention and intolerance of tube feeds, and lack of permanent feeding access. GI to place feeding tube. Total critical care time in evaluation and management of this trauma patient was 45 minutes Maurizio Talley MD Oct 27, 2016 13:24
[2016-10-27] MEDS: LINEZOLID 600 MG PREMIX 300 ML IV SCH (13:40)
[2016-10-27] MEDS: PIPERACIL-TAZO 4.5 GM PREMIX 100 ML IV SCH ×2 (13:40→19:50)
[2016-10-27] MEDS ORDERED: ENALAPRILAT 1.25 MG/ML VIAL IV PUSH PRN (13:45)
[2016-10-27] MEDS: METOPROLOL TARTRATE 5 MG/5 ML VIAL IV PUSH SCH ×2 (14:41→19:50)
[2016-10-27] MEDS: METOCLOPRAMIDE HCL 10 MG/2 ML VIAL IV PUSH SCH ×2 (14:47→22:21)
[2016-10-27] MEDS: hydrALAZINE HCL 20 MG/ML VIAL IV PUSH SCH ×2 (14:48→18:10)
[2016-10-27] MEDS: ENOXAPARIN SODIUM 40 MG/0.4 ML SYRINGE SQ SCH (16:07)
[2016-10-27] MEDS: MORPHINE SULFATE 4 MG/ML INJ IV PUSH PRN ×2 (16:16→20:08)
[2016-10-27] MEDS: DOCUSATE SODIUM 100 MG CAP PO SCH (20:06)
[2016-10-27 21:03] LABS: MEAN CORPUSCULAR HGB CONC 36.7 % (32.0-36.0)
[2016-10-28] VITALS (13 sets, daily range): BP systolic 143–177; BP diastolic 68–83; PULSE 85–106; RESP 16–20; TEMP 98–98.4; O2SAT 94–100
[2016-10-28] MEDS: LINEZOLID 600 MG PREMIX 300 ML IV SCH ×2 (01:00→11:19)
[2016-10-28] MEDS: PIPERACIL-TAZO 4.5 GM PREMIX 100 ML IV SCH ×3 (01:39→13:58)
[2016-10-28] MEDS: METOPROLOL TARTRATE 5 MG/5 ML VIAL IV PUSH SCH ×3 (01:39→13:58)
[2016-10-28] MEDS: MORPHINE SULFATE 4 MG/ML INJ IV PUSH PRN ×2 (02:00→13:59)
[2016-10-28] MEDS: RESP: ALBUTEROL 2.5 MG/IPRATROPIUM 0.5 MG NEB (SCH) NEB ×2 (03:14→09:36)
[2016-10-28 05:05] LABS: HEMATOCRIT 25.6 % (39.0-51.0); MEAN CELL VOLUME 99.9 FL (80.0-100.0); MEAN CORPUSCULAR HEMOGLOBIN 36.7 PG (27.0-34.0); PLATELET COUNT 484 TH/MM3 (150-450); RED BLOOD COUNT 2.56 MIL/MM3 (4.50-5.90); RED CELL DISTRIBUTION WIDTH 14.8 % (11.6-17.2); WHITE BLOOD COUNT 16.8 TH/MM3 (4.0-11.0)
[2016-10-28 05:29] LABS: BICARBONATE 25.9 MEQ/L (21.0-32.0); MAGNESIUM 1.7 MG/DL (1.5-2.5); POTASSIUM 3.3 MEQ/L (3.5-5.1)
[2016-10-28 05:33] LABS: BLOOD GAS BASE EXCESS 2.3 mmol/L (-2-2); BLOOD GAS CARBOXYHEMOGLOBIN 1.3 % (0-4); BLOOD GAS HCO3 26 mmol/L (22-26); BLOOD GAS METHEMOGLOBIN 0.6 % (0-2); BLOOD GAS O2 HGB SATURATION 93 % (90-100); BLOOD GAS OXYGEN CONTENT 11.4 Vol % (12.0-20.0); BLOOD GAS PCO2 36 mmHg (38-42); BLOOD GAS PO2 69 mmHg (61-120); BLOOD GAS TOTAL HGB 8.7 G/DL (12.0-16.0); CRITICAL VALUE NO; FIO2 40 %; OXYGEN DEVICE VENTILATOR; TEMP CORR TO 98.6; VENT SETTINGS PRVC/AC
[2016-10-28 05:34] LABS: DRAW SITE LT BRACHIAL; NUMBER OF ARTERIAL PUNCTURES 1; STAT NO
[2016-10-28 05:43] LABS: REVIEW FLAG FINAL
--- NOTE | 2016-10-28 05:53 | RADRPT ---
EXAM DATE/TIME: 10/28/2016 04:40 [facility] COMPARISON: CHEST SINGLE AP, October 27, 2016, 5:16. INDICATIONS : Shortness of breath. MEDICAL HISTORY : None. SURGICAL HISTORY : None. ENCOUNTER: Subsequent ACUITY: 2 weeks PAIN SCORE: Non-responsive. LOCATION: Bilateral chest FINDINGS: 2 portable frontal views of the chest reveal a tracheostomy tube and nasogastric tube. Consolidation within the right infrahilar region is unchanged. A small effusion is noted on the left. Consolidation with a left lung base is somewhat improved. A new area consolidation is noted within the left upper lobe. Heart is normal in size. CONCLUSION: 1. No area consolidation within the left upper lobe. Left lower lobe consolidation has improved while the right infrahilar consolidation is stable. Mahesh Hernandez Jr., MD on October 28, 2016 at 5:51 Board Certified Radiologist. This report was verified electronically.
[2016-10-28] MEDS: METOCLOPRAMIDE HCL 10 MG/2 ML VIAL IV PUSH SCH ×2 (05:55→13:58)
[2016-10-28] MEDS: hydrALAZINE HCL 20 MG/ML VIAL IV PUSH SCH ×3 (05:55→11:19)
[2016-10-28] MEDS: INSULIN NovoLIN REGULAR SUPPLEMENTAL SCALE SQ SCH ×2 (05:55→11:00)
[2016-10-28] MEDS: PHENYTOIN SUSP 100 MG/4 ML CUP PEG SCH ×2 (05:55→13:58)
[2016-10-28] MEDS: POTASSIUM CHLOR 20 MEQ PREMIX 100 ML IV PRN (05:56)
--- NOTE | 2016-10-28 06:13 | RADRPT ---
EXAM DATE/TIME: 10/28/2016 04:25 [facility] COMPARISON: CT BRAIN W/O CONTRAST, October 16, 2016, 4:59. INDICATIONS : Follow-up subdural hemorrhage. RADIATION DOSE: 47.53 CTDIvol (mGy) MEDICAL HISTORY : ICH SURGICAL HISTORY : Non-responsive. ENCOUNTER: Subsequent ACUITY: 2 weeks PAIN SCALE: Non-responsive LOCATION: cranial TECHNIQUE: Multiple contiguous axial images were obtained of the head. Using automated exposure control and adj ustment of the mA and/or kV according to patient size, radiation dose was kept as low as reasonably a chievable to obtain optimal diagnostic quality images. FINDINGS: A chronic left subdural fluid collection is again seen. This is stable measuring 7 mm in thickness. T here is parenchymal hemorrhage involving the left frontal, parietal, and temporal lobes. This is beco lizette less dense in approaching the same density as the adjacent brain parenchyma with the exception o f the left frontal hemorrhage which remains relatively high in density. No new hemorrhage is seen. Th e right subdural fluid collection is no longer present. Periventricular low attenuation change is see n involving both cerebral hemispheres. Chronic lacunar infarctions involving the basal ganglia noted. No midline shift observed. Diffuse opacification of the ethmoid air cells and sphenoid sinuses bilat erally. Mild mucosal thickening of the maxillary sinuses. Mastoid air cells are clear. CONCLUSION: 1. Motion degraded exam. 2. No new sites of hemorrhage. The parenchymal hemorrhage involving the left cerebral hemisphere cont inues to age. 3. Chronic left subdural collection stable. The right subdural collection is no longer present. 4. No midline shift. Mahesh Hernandez Jr., MD on October 28, 2016 at 6:07 Board Certified Radiologist. This report was verified electronically.
[2016-10-28] MEDS ORDERED: QUEtiapine FUMARATE 25 MG TAB PO SCH (09:00)
[2016-10-28] MEDS: CHLORHEXIDINE 0.12% (ORAL KIT) 15 ML CUP MT SCH (09:13)
[2016-10-28] MEDS: SODIUM CHLOR 0.9% 1000 ML INJ 1,000 ML IV SCH (09:13)
[2016-10-28] MEDS: FUROSEMIDE 20 MG TAB PO SCH (09:14)
[2016-10-28] MEDS: SODIUM CHLORIDE 0.9% FLUSH 5 ML FLUSH IVF SCH (09:14)
[2016-10-28] MEDS: predniSONE 10 MG TAB PO SCH (09:14)
[2016-10-28] MEDS: levETIRAcetam 500 MG/5 ML UDC TUBE SCH (09:14)
[2016-10-28] MEDS: POTASSIUM CHLORIDE 25 MEQ EFFERVESCENT TAB PO SCH (09:14)
[2016-10-28] MEDS: FAMOTIDINE 20 MG TAB PO SCH (09:14)
[2016-10-28] MEDS: METOPROLOL TARTRATE 50 MG TAB PO SCH (09:15)
[2016-10-28] MEDS: THIAMINE HCL 100 MG TAB PO SCH (09:15)
[2016-10-28] MEDS: LISINOPRIL 20 MG TAB PO SCH (09:17)
[2016-10-28] MEDS: DOCUSATE SODIUM 100 MG CAP PO SCH (09:17)
--- NOTE | 2016-10-28 10:50 | HHI.PR ---
Neuropsych Emotional Emotional: UnabletoAssess: Emotional, Anxious/Fearful, Depressed/Sad, Hostile/ Resentful, Irritable/Angry/Frustrate, Labile, Constricted/Blunted Behavior Behavior: Moderate: Impulsive/Agitated, Unable to Asses: Behavior, Coping/ Acceptance, Cooperative w/ Treatment, Motivation, Frustration Tolerance/[place], Suicidal/Homicidal Risk Cognitive Cognitive: Unable to Asses: Cognitive, Attention/Concentration, Confused/ Orientation, Insight/Awareness, Judgement/Problem-Solving, Memory Psychosocial Psychosocial: Severe: Psychosocial, Family/Other Adjustment, Unable to Asses: Realistic Expectation, Self-Esteem/Confidence Progress Notes/Response to Tx Contents of Sessions: Level of Consciousness Time with Patient: 15 minutes Premorbid psychological status I was able to discuss at length with the patient's sister, who was bedside. He is originally from the [facility] and moved here many years ago. His parents , and his mother later committed suicide. He is one of three children. He has a sister who recently . His surviving sister lives in the area, and was taking care of the patient. Patient left high school early and joined the [employer]. 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 He has been homeless for two years. He has two daughters, one of whom he is estranged. His sister reported that the patient has longstanding alcohol dependence issues, which is supported by toxicology and neuroimaging results. Maximizing acute care outcome It is recommended that the patient be monitored for emergent behavioral impulsivity as the medical condition evolves. This patients neuropathological challenges may limit their rehabilitation potential going forward, in addition to premorbid psychosocial challenges, and these challenges will require specialized therapeutic skills to maximize outcome. Anticipated Problems Ongoing areas of concern will include behavioral impulsivity, lack of insight and judgment, which may or may not be expected to improve with time and treatment. 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 Neurocognitive outcome will be attenuated by these underlying issues. Treatment Plan To be determined based on his ongoing pattern of recovery. 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 [facility] Level: IV:Confused/Agitated-maximal assist Diagnosis: (1) Progress Note Narrative As described above, I was able to discuss the patient's situation with his sister, who was bedside. Please see the paragraph above for updated psychosocial information. The patient awakens but is not following commands in any consistent fashion. I will continue to follow, in addition to offering any support to his sister. Kareem Luther PhD Oct 28, 2016 10:50 am
[2016-10-28] MEDS: hydrALAZINE HCL 25 MG TAB PO SCH (11:11)
[2016-10-28] MEDS ORDERED: CLON.1 PO (12:45)
[2016-10-28] MEDS ORDERED: HALO2TAB PO (12:45)
[2016-10-28] MEDS ORDERED: LISI-515 PO (12:45)
[2016-10-28] MEDS ORDERED: MORP4INJ3 IV PUSH (12:45)
[2016-10-28] MEDS ORDERED: DOCU1CAP39 PO (12:45)
[2016-10-28] MEDS ORDERED: PROP10TA6 PO (12:45)
[2016-10-28] MEDS ORDERED: PRED10 PO (12:45)
[2016-10-28] MEDS ORDERED: ONDA4INJ2 IV (12:45)
[2016-10-28] MEDS ORDERED: ACET325T PO (12:45)
[2016-10-28] MEDS ORDERED: HYDR25TA35 PO (12:45)
[2016-10-28] MEDS ORDERED: ENOX40P SQ (12:45)
[2016-10-28] MEDS ORDERED: FURO20TA PO (12:45)
[2016-10-28] MEDS ORDERED: METO-309 PO (12:45)
[2016-10-28] MEDS ORDERED: PHEN125S PEG (12:45)
[2016-10-28] MEDS ORDERED: ZOSY4.5P IV (12:45)
[2016-10-28] MEDS ORDERED: FAMO20TA2 PO (12:45)
[2016-10-28] MEDS ORDERED: LEVE500S TUBE (12:45)
[2016-10-28] MEDS ORDERED: QUET1TAB7 PO (12:45)
[2016-10-28] MEDS ORDERED: MILKSUS PO (12:45)
[2016-10-28] MEDS ORDERED: [UNRECOGNIZED DRUG - CODE] IV (12:45)
[2016-10-28] MEDS: PROPRANOLOL HCL 10 MG TAB PO SCH (13:58)
--- NOTE | 2016-10-28 15:11 | HHI.NSPN ---
History Chief Complaint: not verbalizing well Interval History 67-year-old male admitted 10/10/16 following a fall, inebriated, with CT scan revealing relatively small left frontal parenchymal hemorrhage. 10/11/16 patient required intubation with mechanical ventilation due to decreasing mental status, respiratory difficulty. Positive seizure activity witnessed at [facility]. 10/13/16: Remains intubated, sedated. No definite seizure activity reported 10/15/16: Remains intubated and sedated. 10/17/16: Tracheostomy today. Remains on ventilator, sedated on propofol 10/20/16: Tracheostomy and PEG tube in place. Remains on ventilator. More responsive today. 10/28/2016: Follow-up CT scan of the head stable with relatively mild left frontal subdural hygroma without significant mass effect. Exam Results Vital Signs Date Time Temp Pulse Resp B/P Pulse Ox O2 Delivery O2 Flow Rate FiO2 10/28/16 14:00 95 10/28/16 13:11 98 40 10/28/16 12:00 98.3 20 177/75 10/24/16 10:01 T-piece Intake and Output 10/27/16 10/27/16 10/28/16 08:00 16:00 00:00 Intake Total 808 ml 901 ml 1712 ml Output Total 300 ml 875 ml 300 ml Balance 508 ml 26 ml 1412 ml Physical Examination Tracheostomy in place Not following commands Awake and relatively alert Pupils 2 -3 mm nonreactive. Mild spontaneous extraocular movements, but does not focus or follow with his eyes. Minimal intermittent grimacing deep pain Moves all extremities spontaneous with moderate strength Lab, Micro, Other Results 10/28/2016 CT scan head images reviewed by the undersigned. Agree with findings as noted below: Head CT 10/28/16 0600 Signed Impressions: Service Date/Time: Friday, October 28, 2016 04:25 - CONCLUSION: 1. Motion degraded exam. 2. No new sites of hemorrhage. The parenchymal hemorrhage involving the left cerebral hemisphere continues to age. 3. Chronic left subdural collection stable. The right subdural collection is no longer present. 4. No midline shift. Mahesh Hernandez Jr., MD Chest X-Ray 10/28/16 0600 Signed Impressions: Service Date/Time: Friday, October 28, 2016 04:40 - CONCLUSION: 1. No area consolidation within the left upper lobe. Left lower lobe consolidation has improved while the right infrahilar consolidation is stable. Mahesh Hernandez Jr., MD Laboratory Tests Test 10/28/16 10/28/16 10/28/16 04:11 05:20 11:30 White Blood Count 16.8 TH/MM3 Red Blood Count 2.56 MIL/MM3 Hemoglobin 9.4 GM/DL Hematocrit 25.6 % Mean Corpuscular Volume 99.9 FL Mean Corpuscular Hemoglobin 36.7 PG Mean Corpuscular Hemoglobin 36.7 % Concent Red Cell Distribution Width 14.8 % Platelet Count 484 TH/MM3 Mean Platelet Volume 7.9 FL Sodium Level 133 MEQ/L Potassium Level 3.3 MEQ/L Chloride Level 96 MEQ/L Carbon Dioxide Level 25.9 MEQ/L Anion Gap 11 MEQ/L Blood Urea Nitrogen 9 MG/DL Creatinine 0.55 MG/DL Estimat Glomerular Filtration 149 ML/MIN Rate Random Glucose 130 MG/DL Calcium Level 8.3 MG/DL Magnesium Level 1.7 MG/DL Blood Gas Puncture Site LT BRACHIAL Blood Gas Patient Temperature 98.6 Blood Gas HCO3 26 mmol/L Blood Gas Base Excess 2.3 mmol/L Blood Gas Oxygen Saturation 93 % Arterial Blood pH 7.47 Arterial Blood Partial 36 mmHg Pressure CO2 Arterial Blood Partial 69 mmHg Pressure O2 Arterial Blood Oxygen Content 11.4 Vol % Arterial Blood 1.3 % Carboxyhemoglobin Arterial Blood Methemoglobin 0.6 % Blood Gas Hemoglobin 8.7 G/DL Oxygen Delivery Device VENTILATOR Blood Gas Ventilator Setting PRVC/AC Blood Gas Inspired Oxygen 40 % Ammonia 34 MCMOL/L Medical Decision Making Impression and Plan Impression: 1. 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 No significant mass effect. Moderate diffuse atrophy. Neurologic exam slowly improving. Better eye-opening and grasping hands to command today. Encephalopathy Plan: The findings were discussed at length with the patient's family in the intensive surgical care unit today. Prognosis for recovery is guarded. Anticipate need for long-term care facility. Continue to wean off ventilatory support as tolerated Okay for Lovenox Continue anticonvulsants-change to feeding tube Sourav Jerry MD Oct 28, 2016 15:10
--- NOTE | 2016-10-28 18:19 | HHI.DS ---
Discharge Summary Admission Date Oct 10, 2016 at 23:10 Discharge Date: Oct 28, 2016 Admitting Diagnosis Head trauma (1) Head trauma ICD Code: S09.90XA Diagnosis: Principal (2) Closed head injury with brief loss of consciousness ICD Code: S06.9X9A Diagnosis: Principal (3) Encephalopathy, toxic ICD Code: G92 Diagnosis: Principal (4) Cerebral cortex contusion ICD Code: S06.2X9A Diagnosis: Principal (5) Hypertensive urgency ICD Code: I16.0 (6) Traumatic brain injury ICD Code: S06.9X9A Diagnosis: Principal Brief History Fall. CBC/BMP: 10/28/16 0411 10/28/16 0411 Significant Findings Laboratory Tests Test 10/25/16 10/26/16 10/26/16 10/27/16 19:57 04:34 05:54 03:56 Sodium Level 130 MEQ/L 132 MEQ/L 132 MEQ/L (136-145) (136-145) (136-145) Chloride Level 90 MEQ/L 95 MEQ/L 95 MEQ/L (98-107) (98-107) (98-107) Creatinine 0.59 MG/DL 0.51 MG/DL 0.46 MG/DL (0.60-1.30) (0.60-1.30) (0.60-1.30) Random Glucose 112 MG/DL (74-106) Calcium Level 8.4 MG/DL 8.2 MG/DL (8.5-10.1) (8.5-10.1) White Blood Count 21.8 TH/MM3 18.9 TH/MM3 (4.0-11.0) (4.0-11.0) Red Blood Count 2.70 MIL/MM3 2.68 MIL/MM3 (4.50-5.90) (4.50-5.90) Hemoglobin 9.4 GM/DL 9.5 GM/DL (13.0-17.0) (13.0-17.0) Hematocrit 27.3 % 27.2 % (39.0-51.0) (39.0-51.0) Mean Corpuscular Volume 101.0 FL 101.3 FL (80.0-100.0) (80.0-100.0) Mean Corpuscular Hemoglobin 35.0 PG 35.5 PG (27.0-34.0) (27.0-34.0) Blood Gas Base Excess 2.6 mmol/L (-2-2) Arterial Blood pH 7.45 (7.380-7.420) Blood Gas Hemoglobin 9.6 G/DL (12.0-16.0) Test 10/27/16 10/28/16 10/28/16 10/28/16 05:20 04:11 05:20 11:30 Arterial Blood Oxygen Content 11.9 Vol % 11.4 Vol % (12.0-20.0) (12.0-20.0) Blood Gas Hemoglobin 8.7 G/DL 8.7 G/DL (12.0-16.0) (12.0-16.0) White Blood Count 16.8 TH/MM3 (4.0-11.0) Red Blood Count 2.56 MIL/MM3 (4.50-5.90) Hemoglobin 9.4 GM/DL (13.0-17.0) Hematocrit 25.6 % (39.0-51.0) Mean Corpuscular Hemoglobin 36.7 PG (27.0-34.0) Mean Corpuscular Hemoglobin 36.7 % Concent (32.0-36.0) Platelet Count 484 TH/MM3 (150-450) Sodium Level 133 MEQ/L (136-145) Potassium Level 3.3 MEQ/L (3.5-5.1) Chloride Level 96 MEQ/L (98-107) Creatinine 0.55 MG/DL (0.60-1.30) Random Glucose 130 MG/DL (74-106) Calcium Level 8.3 MG/DL (8.5-10.1) Blood Gas Base Excess 2.3 mmol/L (-2-2) Arterial Blood pH 7.47 (7.380-7.420) Arterial Blood Partial 36 mmHg (38-42) Pressure CO2 Ammonia 34 MCMOL/L (11-32) Imaging Last Impressions Head CT 10/28/16 0600 Signed Impressions: Service Date/Time: Friday, October 28, 2016 04:25 - CONCLUSION: 1. Motion degraded exam. 2. No new sites of hemorrhage. The parenchymal hemorrhage involving the left cerebral hemisphere continues to age. 3. Chronic left subdural collection stable. The right subdural collection is no longer present. 4. No midline shift. Mahesh Hernandez Jr., MD Chest X-Ray 10/28/16 0600 Signed Impressions: Service Date/Time: Friday, October 28, 2016 04:40 - CONCLUSION: 1. No area consolidation within the left upper lobe. Left lower lobe consolidation has improved while the right infrahilar consolidation is stable. Mahesh Hernandez Jr., MD Abdomen X-Ray 10/27/16 0000 Signed Impressions: Service Date/Time: Thursday, October 27, 2016 10:05 - CONCLUSION: Marked gastric distention. Myke Kerr MD Pelvis X-Ray 10/10/[id number] Signed Impressions: Service Date/Time: Monday, October 10, 2016 21:49 - CONCLUSION: Satisfactory trauma pelvis appearance. Willian Tavares MD Cervical Spine CT 10/10/162204 Signed Impressions: Service Date/Time: Monday, October 10, 2016 22:08 - CONCLUSION: No acute bony injury in the cervical spine Willian Tavares MD PE at Discharge GENERAL: This is a 65-year-old gentleman mechanically ventilated and trached. SKIN: Warm and dry. HEAD: Atraumatic. Normocephalic. EYES: PERRLA ENT: No nasal bleeding or discharge. Mucous membranes pink and moist. NECK: Midline tracheostomy in place. Trachea midline. No JVD. CARDIOVASCULAR: Regular rate and rhythm. bus monitor shows sinus rhythm. RESPIRATORY: Patient remains on the vent with CPAP trials daily. No accessory muscle use. Lungs are congested with rhonchi throughout all lobes. Breath sounds equal bilaterally. No distress or dyspnea. GASTROINTESTINAL: BS + x 4 quads. Abdomen soft, non-tender, slightly distended. MUSCULOSKELETAL: Extremities without cyanosis, or edema. + peripheral pulses x 4 extremities. Warm with good capillary refill and sensation. MAEW. NEUROLOGICAL: Patient moves all extremities, but does not follow any commands. Hospital Course This is a 65 y/o man apparently fell over backwards in or outside of local bar with +LOC at scene and seizures. They were unable to intubate in the field. EtOH equals 237. He was intubated in the trauma bay. He sustained a long ICU stay where he required a tracheostomy and continued mechanical ventilation. Several attempts at CPAP were made throughout his stay he had a short trial of T -bar. However in the last couple of days he has remained on mechanical ventilation settings. He continues to be restless, and does not follow any commands at this time. He has finally been accepted to select rehabilitation facility and he has been discharge for continued rehabilitation care. Injuries: LEFT frontotemporal contusion, 2 cm During his stay in the ICU he was followed by critical care management, neurosurgery, infectious disease, and the trauma service. The patient is being managed with an NG tube and tube feedings. He will eventually need PEG placement at the rehabilitation facility. Pain is being managed well with marginal IV pain medications. Behavioral medications will be continued while at rehabilitation. Hypertension management will continue the rehabilitation facility also. Pt is having regular bowel movements, and the patient will continue with stool softeners and the rehabilitation facility. Pt has been scheduled with PT and OT while admitted at [facility]. All follow up appointments have been provided. . Therefore, the patient is stable to be safely discharged to [facility] rehabilitation facility from a trauma surgery standpoint. Thank you for allowing us to participate in his care. We wish Ariel the best in his recovery. Pt Condition on Discharge: Good Discharge Disposition: Rehab Inpatient Discharge Instructions DIET: Follow Instructions for: On Tube Feeding Additional Diet Instructions: Vital at goal of 50 ml/hr Activities you can perform: Regular-No Restrictions Kiya Sinclair Oct 28, 2016 18:19
== END 2016-10-28 15:24 | DRG 4 ==
LOC: NEPI 21:57 → NEDA 23:10 → EDBD 23:10 → MERGE 23:10 → N03B 23:10 → N03A 10-11 10:35
PROVIDERS: ADMIT Surgery; ATTEND Surgery
PROC: 5A1955Z Respiratory Ventilation, Greater than 96 Consecutive Hours (ICD-10-PCS; 2016-10-11)
PROC: 0BH17EZ Insertion of Endotracheal Airway into Trachea, Via Natural or Artificial Opening (ICD-10-PCS; 2016-10-11)
PROC: 0B113F4 Bypass Trachea to Cutaneous with Tracheostomy Device, Percutaneous Approach (ICD-10-PCS; principal; 2016-10-18)
DX: S06.5X1A Traumatic subdural hemorrhage with loss of consciousness of 30 minutes or less, initial encounter (principal); J69.0 Pneumonitis due to inhalation of food and vomit; G92 Toxic encephalopathy; G93.89 Other specified disorders of brain; R13.10 Dysphagia, unspecified; J80 Acute respiratory distress syndrome; R56.9 Unspecified convulsions; S06.2X1A Diffuse traumatic brain injury with loss of consciousness of 30 minutes or less, initial encounter; J44.9 Chronic obstructive pulmonary disease, unspecified; I10 Essential (primary) hypertension; F10.129 Alcohol abuse with intoxication, unspecified; I16.0 Hypertensive urgency; R40.2421 Glasgow coma scale score 9-12, in the field [EMT or ambulance]; R00.0 Tachycardia, unspecified; R63.3 Feeding difficulties; R14.0 Abdominal distension (gaseous); W18.30XA Fall on same level, unspecified, initial encounter; Y90.7 Blood alcohol level of 200-239 mg/100 ml; Y92.838 Other recreation area as the place of occurrence of the external cause; Z59.0 Homelessness; Z88.5 Allergy status to narcotic agent; Z91.030 Bee allergy status
CPT/HCPCS: 31500; 31624; 36600; 70450; 71010; 72125; 72170; 74000; 76937; 80048; 80053; 80185; 80202; 80320; 81001; 82140; 82435; 82550; 82565; 82805; 82947; 82948; 83605; 83735; 83880; 84100; 84132; 84155; 84295; 84520; 85025; 85027; 85610; 85730; 86403; 86850; 86900; 86901; 87040; 87070; 87077; 87147; 87184; 87185; 87186; 87205; 87641; 93005; 94002; 94003; 94640; 94664; 95819; 96374; 96375; A7521; C9113; G0479; J0171; J0360; J0461; J0696; J1165; J1650; J1940; J1953; J2020; J2060; J2250; J2270; J2543; J2765; J3010; J3370; J3411; J3475; J3480; J7030; J7040; J7042; J7050; J7512; Q2009